=== PATIENT | female | born 1940 | race Caucasian/White ===

== ENCOUNTER → 2016-05-15 | Outpatient (CLI) | payer MEDICARE, BC | LOC: MW.CHIM 15:01 | PROVIDERS: ATTEND Internal Medicine | DX: I10 Essential (primary) hypertension (principal); E87.1 Hypo-osmolality and hyponatremia; J06.9 Acute upper respiratory infection, unspecified; F32.9 Major depressive disorder, single episode, unspecified; J44.9 Chronic obstructive pulmonary disease, unspecified | CPT/HCPCS: 36415; 80053; 85025; 99214 ==

== ENCOUNTER → 2016-06-17 | Outpatient (CLI) | payer MEDICARE, BC | LOC: MW.CHIM 08:00 | PROVIDERS: ATTEND Internal Medicine | DX: F32.9 Major depressive disorder, single episode, unspecified (principal); J44.9 Chronic obstructive pulmonary disease, unspecified; I10 Essential (primary) hypertension | CPT/HCPCS: 99214 ==

== ENCOUNTER 2019-12-18 13:48 | Inpatient (IN) | payer MEDICARE, BC, OTHER ==
[2019-12-18] MEDS ORDERED: Albuterol/Ipratropium 3.0-0.5 MG/3 ML Neb Soln ONE ×2 (14:08→15:37)
[2019-12-18] MEDS ORDERED: Albuterol 0.083% 2.5 MG/3 ML Neb Soln ONE ×2 (14:08→15:36)
[2019-12-18] MEDS ORDERED: methylPREDNISolone Sodium Succinate 40 MG/1 ML SDV IVPUSH ONE (14:20)
--- NOTE | 2019-12-18 14:29 | EDM.PDOC ---
ED HPI GENERAL MEDICAL PROBLEM - General Chief Complaint: Respiratory Problem Stated Complaint: DIFFUCLTY BREATHING Time Seen by Provider: 12/18/19 14:05 Source of Information: Reports: Patient, Family, Old Records History Limitations: Reports: No Limitations - History of Present Illness INITIAL COMMENTS - FREE TEXT/NARRATIVE: There is a very pleasant 79-year-old female with a past medical history of COPD and hypertension presenting with shortness of breath. She arrives to the emergency department with her daughter. Daughter states that she has been sick with a cough for about a week. She reports gradually worsening shortness of breath over the past day or so which prompted them to come to the ER. Patient states that she has been feeling unwell. She does live at a halfway complex but does not have any roommates and has no known sick contacts. No known COVID-19 contacts. She did use her albuterol inhaler x1 and her albuterol nebulizer x1 this morning prior to arrival without much relief. Here in the ER, her only complaint is shortness of breath. She denies any pain, particularly chest discomfort. Denies any fever or hemoptysis. No leg swelling, vomiting, diarrhea, or sick contacts. ROS: A 10-point review of systems was negative, except as noted in the HPI (or in the ROS section of this note). Past medical history: Reviewed, no additional pertinent history. Surgical history: Reviewed in system, no additional pertinent history. Social history: Reviewed in system, no additional pertinent history. Family history: Reviewed in system, no additional pertinent history. PHYSICAL EXAM Vital signs reviewed. Nursing notes reviewed. Constitutional: Awake, alert, non-distressed, very thin appearing woman. Head: Normocephalic, atraumatic. Eyes: EOMI, conjunctiva normal, no discharge, no scleral icterus. Ears, Nose, Throat: External ears and nose normal, moist oral mucosa. Cardiovascular: 2+ radial pulse, capillary refill less than 2 seconds. No lower extremity edema. Pulmonary: Faint expiratory wheezing throughout, accessory muscle use, speaking in 3-4 word sentences with mild intercostal muscle retraction. Abdomen/GI: Soft, nontender, nondistended, no guarding or rigidity, no masses. Musculoskeletal: No deformities. Integumentary: Appropriate color for ethnicity, warm, dry, no pallor or jaundice, no rash. Neurologic: Alert, answering questions appropriately, normal speech, no facial droop, moving all extremities well. Psychiatric: Appropriate mood and affect, normal thought process. - Related Data Allergies Allergy/AdvReac Type Severity Reaction Status Date / Time No Known Allergies Allergy Verified 12/18/19 14:09 Home Meds: Home Meds Metoprolol Tartrate 25 mg PO BID 02/18/15 [History] Sertraline [Zoloft] 50 mg PO BEDTIME 02/18/15 [History] Albuterol [Ventolin HFA] 1 puff INH BID 12/18/19 [History] Budesonide/Formoterol [Symbicort 160-4.5 MCG] 1 inh INH Q12HR 12/18/19 [History] Codeine Phosphate/Guaifenesin [Guaifen-Codeine 200-20 mg/10Ml] 5 ml PO BEDTIME 12/18/19 [History] Ipratropium/Albuterol Sulfate [Iprat-Albut 0.5-3(2.5) MG/3 ML] 3 ml IH 12/18/19 [History] amLODIPine [Norvasc] 5 mg PO DAILY 12/18/19 [History] Past Medical History Cardiovascular History: Reports: Hypertension Respiratory History: Reports: COPD Other Respiratory History: emphysema [employer] History: Reports: Psychiatric History: Reports: Anxiety, Depression - Infectious Disease History Infectious Disease History: Reports: Chicken Pox, Shingles - Past Surgical History Musculoskeletal Surgical History: Reports: Hip Replacement, Other (See Below) Social & Family History - Family History Family Medical History: Noncontributory Cardiac: Reports: Hypertension Respiratory: Reports: COPD OBGYN: Reports: Endocrine/Metabolic: Reports: Diabetes, type II - Tobacco Use Second Hand Smoke Exposure: No - Recreational Drug Use Recreational Drug Use: No ED ROS GENERAL - Review of Systems Review Of Systems: See Below ED EXAM, GENERAL - Physical Exam Exam: See Below #1 Interpretation EKG Interpretation Comments: 12-Lead ECG Interpretation Acquired: 1:57 PM Rhythm: Sinus rhythm Rate: 93 bpm [place]: Right axis deviation Intervals: Normal Ectopy: None RV Strain: No obvious RV strain pattern. ST Segments/T-Waves: No notable changes Acute Ischemic Changes: None apparent Interpretation: No STEMI Course - Vital Signs Text/Narrative:: Patient hemodynamically stable, afebrile, well-appearing, looks nontoxic. Differential diagnosis includes but is not limited to: COPD exacerbation, asthma, pulmonary embolism, pulmonary edema, acute coronary syndrome, COVID-19, influenza, pneumothorax, pleural effusion, and many others. 2:29 PM: Blood work drawn. Giving an hour-long nebulizer treatment, ordered Solu-Medrol IV. Reviewed chest x-ray, showing no obvious infiltrates. Twelve- lead EKG looks nonischemic. Awaiting blood work and will reevaluate. 2:54 PM: Patient finished initial round of nebulized medications. Still tachypneic and having difficulty breathing, we will give additional nebulizer treatments. I am planning to admit her to the hospital at this point. Awaiting troponin, BNP, influenza and Covid test. I spoke with the hospitalist Dr. Antonio who agrees to admit. 2:57 PM: Metabolic panel shows mild hyponatremia, mild creatinine elevation of 1.2. Glucose 159. Troponin negative. LFTs look normal. 3:59 PM: BNP mildly elevated to 31. Chest x-ray is clear. Resting comfortably, awaiting swabs. HR 160s after multiple nebulizer treatments, will give 1L LR. 5:45 PM: Awaiting admission. Patient has had approximately 8 nebulizer treatments throughout the ED course of treatment. Heart rate is now 160-170s. She is still tachypneic. We are going to place her on BiPAP to see if that helps. She looks quite jittery and anxious and we are going to give a low-dose of p.o. lorazepam to see if that helps with her heart rate and to make her more comfortable. The hospitalist did evaluate the patient in the emergency department and she states that she would not want to be intubated. 7:09 PM: Resting comfortably on BiPAP. Still awaiting admission to the ICU. Signed out to Dr. Oneill awaiting transfer to ICU. Last Recorded V/S: Last Vital Signs Temp 35.8 C L 12/18/19 14:07 Pulse 157 H 12/18/19 17:13 Resp 28 H 12/18/19 14:07 BP 114/63 12/18/19 17:13 Pulse Ox 96 12/18/19 17:13 - Orders/Labs/Meds Orders: Active Orders 24 hr Category Date Time Status Cardiac Monitoring [RC] . DIRECTED Care 12/18/19 14:05 Active Pulse Oximetry [RC] ASDIRECTED Care 12/18/19 14:05 Active CULTURE BLOOD [BC] Stat Lab 12/18/19 13:59 Received CULTURE BLOOD [BC] Stat Lab 12/18/19 14:28 Received Sodium Chloride 0.9% [Saline Flush] Med 12/18/19 14:05 Active 10 ml FLUSH ASDIRECTED PRN Sodium Chloride 0.9% [Saline Flush] Med 12/18/19 14:05 Active 2.5 ml FLUSH ASDIRECTED PRN Blood Culture x2 Reflex Set [OM.PC] Stat Oth 12/18/19 14:06 Ordered Saline Lock Insert [OM.PC] Stat Oth 12/18/19 14:05 Ordered Medication Orders Acetaminophen (Tylenol) 650 mg PO Q4H PRN PRN Reason: Pain (Mild 1-3)/fever Albuterol/Ipratropium (Duoneb 3.0-0.5 Mg/3 Ml) 3 ml NEB Q4HRRT [facility] Last Admin: 12/18/19 18:03 Dose: Not Given Documented by: CATHERINE Doxycycline Hyclate (Vibramycin) 100 mg PO Q12HR [facility] Heparin Sodium (Porcine) (Heparin Sodium) 5,000 units SUBCUT Q8H [facility] Last Admin: 12/18/19 18:04 Dose: 5,000 units Documented by: CATHERINE Methylprednisolone Sodium Succinate (Solu-Medrol) 40 mg IVPUSH Q12H [place] Pantoprazole Sodium (Protonix) 40 mg PO DAILY [facility] Last Admin: 12/18/19 18:03 Dose: 40 mg Documented by: CATHERINE Sodium Chloride (Saline Flush) 10 ml FLUSH ASDIRECTED PRN PRN Reason: Keep Vein Open Last Admin: 12/18/19 14:32 Dose: 10 ml Documented by: [id number] Sodium Chloride (Saline Flush) 2.5 ml FLUSH ASDIRECTED PRN PRN Reason: Keep Vein Open Last Admin: 12/18/19 14:32 Dose: 2.5 ml Documented by: [id number] Labs: Laboratory Tests 12/18/19 12/18/19 12/18/19 Range/Units 13:59 13:59 13:59 WBC 10.59 (4.0-11.0) K/uL RBC 4.88 (4.30-5.90) M/uL Hgb 14.5 (12.0-16.0) g/dL Hct 44.1 (36.0-46.0) % MCV 90.4 (80.0-98.0) fL MCH 29.7 (27.0-32.0) pg MCHC 32.9 (31.0-37.0) g/dL RDW Std Deviation 46.0 (28.0-62.0) fl RDW Coeff of Kiet 14 (11.0-15.0) % Plt Count 307 (150-400) K/uL MPV 9.80 (7.40-12.00) fL Neut % (Auto) 79.8 (48.0-80.0) % Lymph % (Auto) 11.4 L (16.0-40.0) % [place] % (Auto) 4.6 (0.0-15.0) % Eos % (Auto) 3.6 (0.0-7.0) % Baso % (Auto) 0.6 (0.0-1.5) % Neut # (Auto) 8.5 H (1.4-5.7) K/uL Lymph # (Auto) 1.2 (0.6-2.4) K/uL [place] # (Auto) 0.5 (0.0-0.8) K/uL Eos # (Auto) 0.4 (0.0-0.7) K/uL Baso # (Auto) 0.1 (0.0-0.1) K/uL Nucleated RBC % 0.0 /100WBC Nucleated RBCs # 0 K/uL VBG pH 7.28 L (7.31-7.41) VBG pCO2 52 H (35-45) mmHG VBG pO2 35 (30-40) mmHG VBG HCO3 25 (22-30) mEq/L VBG Total CO2 23 L (41-51) mmol/L VBG Base Excess -2.7 (-3.0-3.0) Sodium 129 L (136-145) mmol/L Potassium 4.4 (3.5-5.1) mmol/L Chloride 93 L (98-107) mmol/L Carbon Dioxide 25.9 (21.0-32.0) mmol/L BUN 16 (7.0-18.0) mg/dL Creatinine 1.2 H (0.6-1.0) mg/dL Est Cr Clr Drug Dosing 27.55 mL/min Estimated GFR (MDRD) 43.6 ml/min Glucose 159 H (74-106) mg/dL Calcium 9.0 (8.5-10.1) mg/dL Total Bilirubin 0.7 (0.2-1.0) mg/dL AST 21 (15-37) IU/L ALT 24 (14-63) IU/L Alkaline Phosphatase 79 (46-116) U/L Troponin I < 0.050 (0.000-0.056) ng/mL B-Natriuretic Peptide (<100) PG/ML Total Protein 7.7 (6.4-8.2) g/dL Albumin 4.5 (3.4-5.0) g/dL Globulin 3.2 (2.6-4.0) g/dL Albumin/Globulin Ratio 1.4 (0.9-1.6) SARS-CoV-2 RNA ([facility]) (NEGATIVE) 12/18/19 12/18/19 Range/Units 13:59 14:40 WBC (4.0-11.0) K/uL RBC (4.30-5.90) M/uL Hgb (12.0-16.0) g/dL Hct (36.0-46.0) % MCV (80.0-98.0) fL MCH (27.0-32.0) pg MCHC (31.0-37.0) g/dL RDW Std Deviation (28.0-62.0) fl RDW Coeff of Kiet (11.0-15.0) % Plt Count (150-400) K/uL MPV (7.40-12.00) fL Neut % (Auto) (48.0-80.0) % Lymph % (Auto) (16.0-40.0) % [place] % (Auto) (0.0-15.0) % Eos % (Auto) (0.0-7.0) % Baso % (Auto) (0.0-1.5) % Neut # (Auto) (1.4-5.7) K/uL Lymph # (Auto) (0.6-2.4) K/uL [place] # (Auto) (0.0-0.8) K/uL Eos # (Auto) (0.0-0.7) K/uL Baso # (Auto) (0.0-0.1) K/uL Nucleated RBC % /100WBC Nucleated RBCs # K/uL VBG pH (7.31-7.41) VBG pCO2 (35-45) mmHG VBG pO2 (30-40) mmHG VBG HCO3 (22-30) mEq/L VBG Total CO2 (41-51) mmol/L VBG Base Excess (-3.0-3.0) Sodium (136-145) mmol/L Potassium (3.5-5.1) mmol/L Chloride (98-107) mmol/L Carbon Dioxide (21.0-32.0) mmol/L BUN (7.0-18.0) mg/dL Creatinine (0.6-1.0) mg/dL Est Cr Clr Drug Dosing mL/min Estimated GFR (MDRD) ml/min Glucose (74-106) mg/dL Calcium (8.5-10.1) mg/dL Total Bilirubin (0.2-1.0) mg/dL AST (15-37) IU/L ALT (14-63) IU/L Alkaline Phosphatase (46-116) U/L Troponin I (0.000-0.056) ng/mL B-Natriuretic Peptide 231 H (<100) PG/ML Total Protein (6.4-8.2) g/dL Albumin (3.4-5.0) g/dL Globulin (2.6-4.0) g/dL Albumin/Globulin Ratio (0.9-1.6) SARS-CoV-2 RNA ([facility]) NEGATIVE (NEGATIVE) Meds: Medications Generic Name Dose Route Start Last Admin Trade Name Freq PRN Reason Stop Dose Admin Acetaminophen 650 mg 12/18/19 17:02 Tylenol PO Q4H PRN Pain (Mild 1-3)/fever Albuterol/Ipratropium 3 ml 12/18/19 18:00 12/18/19 18:03 Duoneb 3.0-0.5 Mg/3 Ml NEB Not Given Q4HRRT [facility] Doxycycline Hyclate 100 mg 12/18/19 21:00 Vibramycin PO Q12HR [facility] Heparin Sodium (Porcine) 5,000 units 12/18/19 18:00 12/18/19 18:04 Heparin Sodium SUBCUT 5,000 units Q8H [facility] Administration Methylprednisolone Sodium Succinate 40 mg 12/19/19 09:00 Solu-Medrol IVPUSH Q12H [facility] Pantoprazole Sodium 40 mg 12/18/19 17:15 12/18/19 18:03 Protonix PO 40 mg DAILY [facility] Administration Sodium Chloride 10 ml 12/18/19 14:05 12/18/19 14:32 Saline Flush FLUSH 10 ml ASDIRECTED PRN Administration Keep Vein Open Sodium Chloride 2.5 ml 12/18/19 14:05 12/18/19 14:32 Saline Flush FLUSH 2.5 ml ASDIRECTED PRN Administration Keep Vein Open Discontinued Medications Generic Name Dose Route Start Last Admin Trade Name Freq PRN Reason Stop Dose Admin Albuterol Confirm 12/18/19 14:08 12/18/19 14:33 Proventil Neb Soln Administered 12/18/19 14:09 5 mg Dose Administration 5 mg .ROUTE .STK-MED ONE Albuterol 10 mg 12/18/19 14:55 12/18/19 15:46 Proventil Neb Soln NEB 12/18/19 14:56 Not Given ONETIME ONE Albuterol Confirm 12/18/19 15:36 12/18/19 15:46 Proventil Neb Soln Administered 12/18/19 15:37 Not Given Dose 5 mg .ROUTE .STK-MED ONE Albuterol 5 mg 12/18/19 15:43 12/18/19 15:45 Proventil Neb Soln NEB 12/18/19 15:44 5 mg ONETIME ONE Administration Albuterol 5 mg 12/18/19 16:00 Proventil NEB QIDRT [place] Albuterol 5 mg 12/18/19 15:48 12/18/19 15:49 Proventil NEB 12/18/19 15:49 5 mg NOW STA Administration Albuterol/Ipratropium Confirm 12/18/19 14:08 12/18/19 14:33 Duoneb 3.0-0.5 Mg/3 Ml Administered 12/18/19 14:09 6 ml Dose Administration 6 ml .ROUTE .STK-MED ONE Albuterol/Ipratropium 9 ml 12/18/19 14:55 12/18/19 16:19 Duoneb 3.0-0.5 Mg/3 Ml NEB 12/18/19 14:56 Not Given ONETIME ONE Albuterol/Ipratropium Confirm 12/18/19 15:37 12/18/19 15:45 Duoneb 3.0-0.5 Mg/3 Ml Administered 12/18/19 15:38 Not Given Dose 6 ml .ROUTE .STK-MED ONE Albuterol/Ipratropium 6 ml 12/18/19 15:42 12/18/19 15:45 Duoneb 3.0-0.5 Mg/3 Ml NEB 12/18/19 15:43 6 ml ONETIME ONE Administration Amlodipine Besylate 10 mg 12/18/19 14:53 12/18/19 15:44 Norvasc PO 12/18/19 14:54 Not Given ONETIME ONE Lactated Ringer's 1,000 mls @ 999 mls/hr 12/18/19 16:00 12/18/19 16:36 Ringers, Lactated IV 12/18/19 17:00 999 mls/hr .BOLUS ONE Administration Lorazepam 0.5 mg 12/18/19 17:55 12/18/19 18:03 Ativan PO 12/18/19 17:56 0.5 mg ONETIME ONE Administration Methylprednisolone Sodium Succinate 40 mg 12/18/19 14:20 12/18/19 14:32 Solu-Medrol IVPUSH 12/18/19 14:21 40 mg ONETIME ONE Administration Departure - Departure Time of Disposition: 14:30 Disposition: Admitted As Inpatient 68 Clinical Impression: COPD exacerbation - Discharge Information Critical Care Note - Critical Care Note Total Time (mins): 45 Comments: Critical care time is exclusive of billable procedures and the time to perform these procedures. Critical care time was used to prevent vital system organ failure and deterioration. Critical care time includes bedside management and high-complexity decision making requiring my highest level of mental preparedness and attention. This includes reviewing the patient's chart and prior medical records, ordering and reviewing interpreting laboratory studies and imaging results, interpretation of vital signs and EKG, pulse oximetry, and discussion with the admitting team or accepting facility, discussions with EMS and nursing staff, and discussions with any family members if available. Acute hypoxic respiratory failure requiring noninvasive positive pressure ventilation and admission to intensive care unit. Sepsis Event Note (ED) - Evaluation Sepsis Screening Result: No Definite Risk - Focused Exam Vital Signs: Vital Signs Temp Pulse Resp BP Pulse Ox 12/18/19 14:07 35.8 C L 92 28 H 212/97 H 80 L - My Orders Last 24 Hours: My Active Orders 12/18/19 13:59 CULTURE BLOOD [BC] Stat 12/18/19 14:05 Cardiac Monitoring [RC] . DIRECTED Pulse Oximetry [RC] ASDIRECTED Sodium Chloride 0.9% [Saline Flush] 10 ml FLUSH ASDIRECTED PRN Sodium Chloride 0.9% [Saline Flush] 2.5 ml FLUSH ASDIRECTED PRN Saline Lock Insert [OM.PC] Stat 12/18/19 14:06 Blood Culture x2 Reflex Set [OM.PC] Stat 12/18/19 14:28 CULTURE BLOOD [BC] Stat - Assessment/Plan Last 24 Hours: My Active Orders 12/18/19 13:59 CULTURE BLOOD [BC] Stat 12/18/19 14:05 Cardiac Monitoring [RC] . DIRECTED Pulse Oximetry [RC] ASDIRECTED Sodium Chloride 0.9% [Saline Flush] 10 ml FLUSH ASDIRECTED PRN Sodium Chloride 0.9% [Saline Flush] 2.5 ml FLUSH ASDIRECTED PRN Saline Lock Insert [OM.PC] Stat 12/18/19 14:06 Blood Culture x2 Reflex Set [OM.PC] Stat 12/18/19 14:28 CULTURE BLOOD [BC] Stat
[2019-12-18] MEDS: Sodium Chloride 0.9% 10 ML Syringe FLUSH PRN ×2 (14:32→20:48)
[2019-12-18] MEDS: Sodium Chloride 0.9% 2.5 ML Syringe FLUSH PRN (14:32)
--- NOTE | 2019-12-18 14:34 | CR ---
INDICATION: Shortness of breath TECHNIQUE: Chest 1 view. COMPARISON: Chest x-ray 06/23/2018 FINDINGS: The lungs are hyperexpanded, similar to prior exam. The heart is normal in size. The pulmonary vasculature is within normal limits. There is atherosclerotic calcification of the aortic arch. Evaluation of the lung apices are limited due to patient positioning. The bones are unremarkable. IMPRESSION: Stable emphysematous changes. No acute process. Dictated by Gabriela Baptiste MD @ Dec 18 2019 2:31PM Signed by Dr. Gabriela Baptiste @ Dec 18 2019 2:33PM
[2019-12-18 14:39] LABS: BLOOD UREA NITROGEN,BUN 16 mg/dL (7.0-18.0); CARBON DIOXIDE,CO2 25.9 mmol/L (21.0-32.0); CHLORIDE,CL 93 mmol/L (98-107); GLUCOSE RANDOM 159 mg/dL (74-106); POTASSIUM,K 4.4 mmol/L (3.5-5.1); SODIUM,NA 129 mmol/L (136-145)
[2019-12-18] MEDS ORDERED: amLODIPine 5 MG Tab PO ONE (14:53)
[2019-12-18] MEDS ORDERED: Albuterol 0.5% 5 MG/ML Neb Soln 20 ML Bottle NEB ONE (14:55)
[2019-12-18] MEDS ORDERED: Albuterol/Ipratropium 3.0-0.5 MG/3 ML Neb Soln NEB ONE ×2 (14:55→15:42)
[2019-12-18] MEDS ORDERED: Albuterol 0.083% 2.5 MG/3 ML Neb Soln NEB ONE (15:43)
[2019-12-18] MEDS ORDERED: Albuterol 0.5% 2.5 MG/0.5 ML Neb Soln NEB STA (15:48)
[2019-12-18] MEDS ORDERED: Albuterol 0.5% 2.5 MG/0.5 ML Neb Soln NEB SCH (16:00)
[2019-12-18] MEDS ORDERED: Lactated Ringers 1,000 ML IV ONE (16:00)
[2019-12-18] MEDS ORDERED: Acetaminophen 325 MG Tab PO PRN (17:02)
--- NOTE | 2019-12-18 17:07 | PCM.HP.2 ---
H&P History of Present Illness - General Date of Service: 12/18/19 Admit Problem/Dx: Admission Diagnosis/Problem Admission Diagnosis/Problem COPD, Moderate chronic obstructive pulmonary disease - History of Present Illness Initial Comments - Free Text/Narative: 79-year-old female presents complaining of worsening cough and shortness of breath for the past 1 week. She has a PMH of COPD, HTN and CVA. Daughter at bedside reports that she does not use home oxygen, however, she thinks that she would probably need to be. Her cough is productive of white colored sputum. She has been using her home inhalers and nebulizer treatment but when this did not help she was brought in to the ER. Patient denies having any fevers, chills, chest pain, nausea, vomiting, abdominal pain, diarrhea, blood in stool, blood in urine, numbness or tingling in extremities. In the ER, VBG pH 7.28, CBC unremarkable and creatinine 1.2. Troponin was negative. CXR showed emphysematous changes. COVID19 and influenza tests were negative. Patient requiring 4 L of supplemental O2. She was given multiple D uoNeb treatments, IV solumedrol 40 mg and 1 L IV LR bolus. She was admitted for further evaluation and treatment. - Related Data Allergies/Adverse Reactions: Allergies Allergy/AdvReac Type Severity Reaction Status Date / Time No Known Allergies Allergy Verified 12/18/19 14:09 Home Medications: Home Meds Metoprolol Tartrate 25 mg PO BID 02/18/15 [History] Sertraline [Zoloft] 50 mg PO BEDTIME 02/18/15 [History] Albuterol [Ventolin HFA] 1 puff INH BID 12/18/19 [History] Budesonide/Formoterol [Symbicort 160-4.5 MCG] 1 inh INH Q12HR 12/18/19 [History] Codeine Phosphate/Guaifenesin [Guaifen-Codeine 200-20 mg/10Ml] 5 ml PO BEDTIME 12/18/19 [History] Ipratropium/Albuterol Sulfate [Iprat-Albut 0.5-3(2.5) MG/3 ML] 3 ml IH 12/18/19 [History] amLODIPine [Norvasc] 5 mg PO DAILY 12/18/19 [History] Past Medical History Cardiovascular History: Reports: Hypertension Respiratory History: Reports: COPD Other Respiratory History: emphysema 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: Psychiatric History: Reports: Anxiety, Depression - Infectious Disease History Infectious Disease History: Reports: Chicken Pox, Shingles - Past Surgical History Musculoskeletal Surgical History: Reports: Hip Replacement, Other (See Below) Social & Family History - Family History Family Medical History: Noncontributory Cardiac: Reports: Hypertension Respiratory: Reports: COPD OBGYN: Reports: Endocrine/Metabolic: Reports: Diabetes, type II - Tobacco Use Second Hand Smoke Exposure: No - Recreational Drug Use Recreational Drug Use: No H&P Review of Systems - Review of Systems: Review Of Systems: Comprehensive ROS is negative, except as noted in HPI. Exam - Exam Exam: See Below - Vital Signs Vital Signs: Last Vital Signs Temp 35.8 C L 12/18/19 14:07 Pulse 92 12/18/19 14:07 Resp 28 H 12/18/19 14:07 BP 129/71 12/18/19 15:44 Pulse Ox 80 L 12/18/19 14:07 Weight: 44.452 kg - Exam General: Alert, Oriented, Cooperative, Other (NAD) HEENT: Conjunctiva Clear, EOMI, Hearing Intact, Pupils Equal, Pupils Reactive Neck: Supple, Trachea Midline Lungs: Normal Respiratory Effort, Other (quiet breath sounds b/l) Cardiovascular: Regular Rhythm, Tachycardia GI/Abdominal Exam: Normal Bowel Sounds, Soft, Non-Tender, No Distention Extremities: Normal Inspection, No Pedal Edema Skin: Warm, Dry, Intact Neurological: Cranial Nerves Intact, Strength Equal Bilateral, Normal Speech, Normal Tone Neuro Extensive - Mental Status: Alert, Oriented x3, Normal Mood/Affect Psychiatric: Alert, Normal Affect, Normal Mood - Patient Data Lab Results Last 24 hrs: Laboratory Results - last 24 hr 12/18/19 12/18/19 12/18/19 Range/Units 13:59 13:59 13:59 WBC 10.59 (4.0-11.0) K/uL RBC 4.88 (4.30-5.90) M/uL Hgb 14.5 (12.0-16.0) g/dL Hct 44.1 (36.0-46.0) % MCV 90.4 (80.0-98.0) fL MCH 29.7 (27.0-32.0) pg MCHC 32.9 (31.0-37.0) g/dL RDW Std Deviation 46.0 (28.0-62.0) fl RDW Coeff of Kiet 14 (11.0-15.0) % Plt Count 307 (150-400) K/uL MPV 9.80 (7.40-12.00) fL Neut % (Auto) 79.8 (48.0-80.0) % Lymph % (Auto) 11.4 L (16.0-40.0) % Forest % (Auto) 4.6 (0.0-15.0) % Eos % (Auto) 3.6 (0.0-7.0) % Baso % (Auto) 0.6 (0.0-1.5) % Neut # (Auto) 8.5 H (1.4-5.7) K/uL Lymph # (Auto) 1.2 (0.6-2.4) K/uL Forest # (Auto) 0.5 (0.0-0.8) K/uL Eos # (Auto) 0.4 (0.0-0.7) K/uL Baso # (Auto) 0.1 (0.0-0.1) K/uL Nucleated RBC % 0.0 /100WBC Nucleated RBCs # 0 K/uL VBG pH 7.28 L (7.31-7.41) VBG pCO2 52 H (35-45) mmHG VBG pO2 35 (30-40) mmHG VBG HCO3 25 (22-30) mEq/L VBG Total CO2 23 L (41-51) mmol/L VBG Base Excess -2.7 (-3.0-3.0) Sodium 129 L (136-145) mmol/L Potassium 4.4 (3.5-5.1) mmol/L Chloride 93 L (98-107) mmol/L Carbon Dioxide 25.9 (21.0-32.0) mmol/L BUN 16 (7.0-18.0) mg/dL Creatinine 1.2 H (0.6-1.0) mg/dL Est Cr Clr Drug Dosing 27.55 mL/min Estimated GFR (MDRD) 43.6 ml/min Glucose 159 H (74-106) mg/dL Calcium 9.0 (8.5-10.1) mg/dL Total Bilirubin 0.7 (0.2-1.0) mg/dL AST 21 (15-37) IU/L ALT 24 (14-63) IU/L Alkaline Phosphatase 79 (46-116) U/L Troponin I < 0.050 (0.000-0.056) ng/mL B-Natriuretic Peptide (<100) PG/ML Total Protein 7.7 (6.4-8.2) g/dL Albumin 4.5 (3.4-5.0) g/dL Globulin 3.2 (2.6-4.0) g/dL Albumin/Globulin Ratio 1.4 (0.9-1.6) SARS-CoV-2 RNA (CARLEE) (NEGATIVE) 12/18/19 12/18/19 Range/Units 13:59 14:40 WBC (4.0-11.0) K/uL RBC (4.30-5.90) M/uL Hgb (12.0-16.0) g/dL Hct (36.0-46.0) % MCV (80.0-98.0) fL MCH (27.0-32.0) pg MCHC (31.0-37.0) g/dL RDW Std Deviation (28.0-62.0) fl RDW Coeff of Kiet (11.0-15.0) % Plt Count (150-400) K/uL MPV (7.40-12.00) fL Neut % (Auto) (48.0-80.0) % Lymph % (Auto) (16.0-40.0) % Forest % (Auto) (0.0-15.0) % Eos % (Auto) (0.0-7.0) % Baso % (Auto) (0.0-1.5) % Neut # (Auto) (1.4-5.7) K/uL Lymph # (Auto) (0.6-2.4) K/uL Forest # (Auto) (0.0-0.8) K/uL Eos # (Auto) (0.0-0.7) K/uL Baso # (Auto) (0.0-0.1) K/uL Nucleated RBC % /100WBC Nucleated RBCs # K/uL VBG pH (7.31-7.41) VBG pCO2 (35-45) mmHG VBG pO2 (30-40) mmHG VBG HCO3 (22-30) mEq/L VBG Total CO2 (41-51) mmol/L VBG Base Excess (-3.0-3.0) Sodium (136-145) mmol/L Potassium (3.5-5.1) mmol/L Chloride (98-107) mmol/L Carbon Dioxide (21.0-32.0) mmol/L BUN (7.0-18.0) mg/dL Creatinine (0.6-1.0) mg/dL Est Cr Clr Drug Dosing mL/min Estimated GFR (MDRD) ml/min Glucose (74-106) mg/dL Calcium (8.5-10.1) mg/dL Total Bilirubin (0.2-1.0) mg/dL AST (15-37) IU/L ALT (14-63) IU/L Alkaline Phosphatase (46-116) U/L Troponin I (0.000-0.056) ng/mL B-Natriuretic Peptide 231 H (<100) PG/ML Total Protein (6.4-8.2) g/dL Albumin (3.4-5.0) g/dL Globulin (2.6-4.0) g/dL Albumin/Globulin Ratio (0.9-1.6) SARS-CoV-2 RNA (CARLEE) NEGATIVE (NEGATIVE) Result Diagrams: 12/18/19 13:59 12/18/19 13:59 Wilner Results Last 24 hrs: Microbiology 12/18/19 14:40 Influenza Type A Antigen Screen - Final Nasopharyngeal Swab NEGATIVE INFLUENZA A VIRUS AG REFERENCE RANGE: NEGATIVE Influenza Type B Antigen Screen - Final NEGATIVE INFLUENZA B VIRUS AG REFERENCE RANGE: NEGATIVE Sepsis Event Note - Evaluation Sepsis Screening Result: No Definite Risk - Focused Exam Vital Signs: Vital Signs Temp Pulse Resp BP BP Pulse Ox 12/18/19 15:44 129/71 12/18/19 14:07 35.8 C L 92 28 H 212/97 H 80 L - Problem List (1) COPD exacerbation SNOMED Code(s): 090189216 ICD Code: J44.1 - CHRONIC OBSTRUCTIVE PULMONARY DISEASE W (ACUTE) EXA CERBATION Status: Acute Current Visit: Yes (2) Hyponatremia SNOMED Code(s): 16391988 ICD Code: E87.1 - HYPO-OSMOLALITY AND HYPONATREMIA Status: Acute Current Visit: Yes Problem List Initiated/Reviewed/Updated: Yes Orders Last 24hrs: Active Orders 24 hr Category Date Time Status Admission Status [Patient Status] [ADT] Stat ADT 12/18/19 14:53 Active Cardiac Monitoring [RC] . DIRECTED Care 12/18/19 14:05 Active EKG Documentation Completion [RC] STAT Care 12/18/19 14:05 Active Oxygen Therapy [RC] PRN Care 12/18/19 17:02 Ordered Pulse Oximetry [RC] ASDIRECTED Care 12/18/19 14:05 Active RT Aerosol Therapy [RC] ASDIRECTED Care 12/18/19 14:55 Active RT Aerosol Therapy [RC] ASDIRECTED Care 12/18/19 15:43 Active RT Aerosol Therapy [RC] ASDIRECTED Care 12/18/19 15:44 Active RT Aerosol Therapy [RC] ASDIRECTED Care 12/18/19 15:48 Active RT Aerosol Therapy [RC] ASDIRECTED Care 12/18/19 17:04 Ordered RT Incentive Spirometry [RC] ASDIRECTED Care 12/18/19 17:04 Ordered Up With Assistance [RC] ASDIRECTED Care 12/18/19 17:02 Ordered VTE/DVT Education [RC] PER UNIT ROUTINE Care 12/18/19 17:02 Ordered Vital Signs [RC] Q4H Care 12/18/19 17:02 Ordered Regular Diet [DIET] Diet 12/18/19 Lunch Ordered CBC WITH AUTO DIFF [HEME] AM Lab 12/19/19 05:11 Ordered COMPREHENSIVE METABOLIC PN,CMP [CHEM] AM Lab 12/19/19 05:11 Ordered CULTURE BLOOD [BC] Stat Lab 12/18/19 13:59 Received CULTURE BLOOD [BC] Stat Lab 12/18/19 14:28 Received Acetaminophen [TylenoL] Med 12/18/19 17:02 Ordered 650 mg PO Q4H PRN Albuterol/Ipratropium [DuoNeb 3.0-0.5 MG/3 ML] Med 12/18/19 18:00 Ordered 3 ml NEB Q4HRRT Doxycycline [Vibramycin] Med 12/18/19 21:00 Ordered 100 mg PO Q12HR Heparin Sodium Med 12/18/19 17:15 Ordered 5,000 units SUBCUT Q8H Pantoprazole [ProTONIX] Med 12/18/19 17:15 Ordered 40 mg PO DAILY Sodium Chloride 0.9% [Saline Flush] Med 12/18/19 14:05 Active 10 ml FLUSH ASDIRECTED PRN Sodium Chloride 0.9% [Saline Flush] Med 12/18/19 14:05 Active 2.5 ml FLUSH ASDIRECTED PRN methylPREDNISolone Sod Succ [Solu-MEDROL] Med 12/19/19 09:00 Ordered 40 mg IVPUSH Q12H Blood Culture x2 Reflex Set [OM.PC] Stat Ot 12/18/19 14:06 Ordered RT Flutter Valve Therapy [RT Acapella] [RESPCARE] Oth 12/18/19 17:04 Ordered Routine Saline Lock Insert [OM.PC] Stat Oth 12/18/19 14:05 Ordered Resuscitation Status Routine Resus Stat 12/18/19 17:02 Ordered Medication Orders Acetaminophen (Tylenol) 650 mg PO Q4H PRN PRN Reason: Pain (Mild 1-3)/fever Albuterol/Ipratropium (Duoneb 3.0-0.5 Mg/3 Ml) 3 ml NEB Q4HRRT [place] Doxycycline Hyclate (Vibramycin) 100 mg PO Q12HR [place] Heparin Sodium (Porcine) (Heparin Sodium) 5,000 units SUBCUT Q8H [place] Methylprednisolone Sodium Succinate (Solu-Medrol) 40 mg IVPUSH Q12H [place] Pantoprazole Sodium (Protonix) 40 mg PO DAILY [place] Sodium Chloride (Saline Flush) 10 ml FLUSH ASDIRECTED PRN PRN Reason: Keep Vein Open Last Admin: 12/18/19 14:32 Dose: 10 ml Documented by: [id number] Sodium Chloride (Saline Flush) 2.5 ml FLUSH ASDIRECTED PRN PRN Reason: Keep Vein Open Last Admin: 12/18/19 14:32 Dose: 2.5 ml Documented by: [id number] Assessment/Plan Comment:: Assessment and Plan: 1. Acute hypoxic respiratory failure secondary to COPD exacerbation: - Admit to ICU. Will continue on BiPAP. DuoNebs q4 [place], IV solumedrol 40 mg BID and doxycycline. - CXR showed emphysematous changes. COVID19 and influenza tests were negative. 2. Hyponatremia, mild: - Patient received IV 1 L LR bolus in ER. Will monitor with AM labs. 3. NOEMÍ: - Patient received IV bolus in ER. Will recheck CMP with AM labs. 4. DVT prophylaxis: - Heparin 5000 units subcut q8h. 5. Past medical history of HTN and CVA: - Will continue home medications.
[2019-12-18] MEDS ORDERED: LORazepam 0.5 MG Tab PO ONE (17:55)
[2019-12-18] MEDS ORDERED: Albuterol/Ipratropium 3.0-0.5 MG/3 ML Neb Soln NEB SCH (18:00)
[2019-12-18] MEDS: Pantoprazole 40 MG Tab.CR PO SCH (18:03)
[2019-12-18] MEDS: Heparin Sodium 5,000 Units/ML Vial SUBCUT SCH (18:04)
--- NOTE | 2019-12-18 19:54 | PN ---
TH[facility] Physician - Brief Progress [id number]/24/2020 19:46[facility] Patricai de jesus, [place] - MWN (MANPREET) - MWN ICUANGIE ACOSTA, COVID+Date of Service 12/18/2019 19:46HPI/E vents of Note The patient is a 79-year-old male who is admitted to the ICU with COVID-19 pneumonia an d hypoxemic respiratory failure.I was called by about the patient. The patient is currentl y on 8 L oxygen by nasal cannula is receiving Decadron Decadron and remdesivir, as well as a communit y-acquired pneumonia coverage with ceftriaxone and azithromycin. Dr. Galloway is ordering for him conv alescent plasma.In addition he is intermittently in atrial fibrillation, and received Cardizem bolus, we discussed that this probably will need to be followed by Magdy patient could not be evaluated o miguel the camera because he is in the room yet, before transfer to ICU from floor he was sent for CT an giogram.Please excuse any mistakes in syntax and contextual errors that this report may contain, as it is created by diesel motor mechanic softwareInterventions Intermediate-Communication with other healthcare providers and/or family
[2019-12-18] MEDS: Sertraline 50 MG Tab PO SCH (21:35)
[2019-12-18] MEDS: Doxycycline 100 MG Cap PO SCH (21:35)
[2019-12-18] MEDS: Metoprolol Tartrate 25 MG Tab PO SCH (21:35)
[2019-12-18] MEDS ORDERED: Diltiazem 25 MG/5 ML SDV IVPUSH PRN (22:00)
[2019-12-18] MEDS: Albuterol/Ipratropium 3.0-0.5 MG/3 ML Neb Soln NEB PRN (22:20)
[2019-12-18] MEDS: Budesonide/Formoterol 160-4.5 MCG/Puff 6 GM Inhaler INH SCH (22:45)
[2019-12-19] MEDS: Sodium Chloride 0.9% 10 ML Syringe FLUSH PRN ×2 (00:05→04:08)
[2019-12-19] MEDS: Heparin Sodium 5,000 Units/ML Vial SUBCUT SCH ×3 (01:43→17:53)
[2019-12-19] MEDS: Albuterol/Ipratropium 3.0-0.5 MG/3 ML Neb Soln NEB PRN (04:20)
[2019-12-19] MEDS: Doxycycline 100 MG Cap PO SCH ×2 (08:22→20:11)
[2019-12-19] MEDS: Pantoprazole 40 MG Tab.CR PO SCH (08:22)
[2019-12-19] MEDS: amLODIPine 5 MG Tab PO SCH (08:22)
[2019-12-19] MEDS: Metoprolol Tartrate 25 MG Tab PO SCH ×2 (08:22→20:11)
[2019-12-19] MEDS: methylPREDNISolone Sodium Succinate 40 MG/1 ML SDV IVPUSH SCH ×2 (08:23→20:10)
[2019-12-19] MEDS: Budesonide/Formoterol 160-4.5 MCG/Puff 6 GM Inhaler INH SCH ×2 (09:55→22:02)
[2019-12-19] MEDS ORDERED: Calcium Carbonate 500 MG Tab.Chew PO ONE (11:30)
--- NOTE | 2019-12-19 11:36 | PCM.PN ---
- General Info Date of Service: 12/19/19 Subjective Update: 79 y/o F admitted for hypoxia, was on Bipap overnight with SVT. Improved status this morning, patient states she feels much better. In sinus rhythm eating her breakfast on 3L high flow O2. Functional Status: Reports: Tolerating Diet, Incentive Spirometry - Review of Systems General: Reports: No Symptoms HEENT: Reports: No Symptoms Pulmonary: Reports: Shortness of Breath, Cough. Denies: Pleuritic Chest Pain Cardiovascular: Reports: No Symptoms Gastrointestinal: Reports: No Symptoms Genitourinary: Reports: No Symptoms Musculoskeletal: Reports: No Symptoms Skin: Reports: No Symptoms Neurological: Reports: No Symptoms Psychiatric: Reports: No Symptoms - Patient Data Vitals - Most Recent: Last Vital Signs Temp 97.3 F 12/19/19 08:00 Pulse 80 12/19/19 08:22 Resp 18 12/19/19 08:00 BP 151/74 H 12/19/19 08:22 Pulse Ox 97 12/19/19 08:00 Weight - Most Recent: 89 lb 1.068 oz I&O - Last 24 Hours: Intake & Output 12/18/19 12/19/19 12/19/19 22:59 06:59 14:59 Intake Total 420 Output Total 350 Balance 70 Lab Results Last 24 Hours: Laboratory Results - last 24 hr 12/18/19 12/18/19 12/18/19 Range/Units 13:59 13:59 13:59 WBC 10.59 (4.0-11.0) K/uL RBC 4.88 (4.30-5.90) M/uL Hgb 14.5 (12.0-16.0) g/dL Hct 44.1 (36.0-46.0) % MCV 90.4 (80.0-98.0) fL MCH 29.7 (27.0-32.0) pg MCHC 32.9 (31.0-37.0) g/dL RDW Std Deviation 46.0 (28.0-62.0) fl RDW Coeff of Kiet 14 (11.0-15.0) % Plt Count 307 (150-400) K/uL MPV 9.80 (7.40-12.00) fL Neut % (Auto) 79.8 (48.0-80.0) % Lymph % (Auto) 11.4 L (16.0-40.0) % [place] % (Auto) 4.6 (0.0-15.0) % Eos % (Auto) 3.6 (0.0-7.0) % Baso % (Auto) 0.6 (0.0-1.5) % Neut # (Auto) 8.5 H (1.4-5.7) K/uL Lymph # (Auto) 1.2 (0.6-2.4) K/uL [place] # (Auto) 0.5 (0.0-0.8) K/uL Eos # (Auto) 0.4 (0.0-0.7) K/uL Baso # (Auto) 0.1 (0.0-0.1) K/uL Nucleated RBC % 0.0 /100WBC Nucleated RBCs # 0 K/uL VBG pH 7.28 L (7.31-7.41) VBG pCO2 52 H (35-45) mmHG VBG pO2 35 (30-40) mmHG VBG HCO3 25 (22-30) mEq/L VBG Total CO2 23 L (41-51) mmol/L VBG Base Excess -2.7 (-3.0-3.0) Lactate (0.20-2.00) mmol/L Sodium 129 L (136-145) mmol/L Potassium 4.4 (3.5-5.1) mmol/L Chloride 93 L (98-107) mmol/L Carbon Dioxide 25.9 (21.0-32.0) mmol/L BUN 16 (7.0-18.0) mg/dL Creatinine 1.2 H (0.6-1.0) mg/dL Est Cr Clr Drug Dosing 27.55 mL/min Estimated GFR (MDRD) 43.6 ml/min Glucose 159 H (74-106) mg/dL Calcium 9.0 (8.5-10.1) mg/dL Total Bilirubin 0.7 (0.2-1.0) mg/dL AST 21 (15-37) IU/L ALT 24 (14-63) IU/L Alkaline Phosphatase 79 (46-116) U/L Troponin I < 0.050 (0.000-0.056) ng/mL B-Natriuretic Peptide (<100) PG/ML Total Protein 7.7 (6.4-8.2) g/dL Albumin 4.5 (3.4-5.0) g/dL Globulin 3.2 (2.6-4.0) g/dL Albumin/Globulin Ratio 1.4 (0.9-1.6) SARS-CoV-2 RNA (CARLEE) (NEGATIVE) 12/18/19 12/18/19 12/19/19 Range/Units 13:59 14:40 05:20 WBC 7.58 (4.0-11.0) K/uL RBC 3.85 L (4.30-5.90) M/uL Hgb 11.3 L (12.0-16.0) g/dL Hct 34.6 L (36.0-46.0) % MCV 89.9 (80.0-98.0) fL MCH 29.4 (27.0-32.0) pg MCHC 32.7 (31.0-37.0) g/dL RDW Std Deviation 45.8 (28.0-62.0) fl RDW Coeff of Kiet 14 (11.0-15.0) % Plt Count 217 (150-400) K/uL MPV 9.90 (7.40-12.00) fL Neut % (Auto) 76.2 (48.0-80.0) % Lymph % (Auto) 13.9 L (16.0-40.0) % [place] % (Auto) 9.5 (0.0-15.0) % Eos % (Auto) 0.3 (0.0-7.0) % Baso % (Auto) 0.1 (0.0-1.5) % Neut # (Auto) 5.8 H (1.4-5.7) K/uL Lymph # (Auto) 1.1 (0.6-2.4) K/uL [place] # (Auto) 0.7 (0.0-0.8) K/uL Eos # (Auto) 0.0 (0.0-0.7) K/uL Baso # (Auto) 0.0 (0.0-0.1) K/uL Nucleated RBC % 0.0 /100WBC Nucleated RBCs # 0 K/uL VBG pH (7.31-7.41) VBG pCO2 (35-45) mmHG VBG pO2 (30-40) mmHG VBG HCO3 (22-30) mEq/L VBG Total CO2 (41-51) mmol/L VBG Base Excess (-3.0-3.0) Lactate (0.20-2.00) mmol/L Sodium (136-145) mmol/L Potassium (3.5-5.1) mmol/L Chloride (98-107) mmol/L Carbon Dioxide (21.0-32.0) mmol/L BUN (7.0-18.0) mg/dL Creatinine (0.6-1.0) mg/dL Est Cr Clr Drug Dosing mL/min Estimated GFR (MDRD) ml/min Glucose (74-106) mg/dL Calcium (8.5-10.1) mg/dL Total Bilirubin (0.2-1.0) mg/dL AST (15-37) IU/L ALT (14-63) IU/L Alkaline Phosphatase (46-116) U/L Troponin I (0.000-0.056) ng/mL B-Natriuretic Peptide 231 H (<100) PG/ML Total Protein (6.4-8.2) g/dL Albumin (3.4-5.0) g/dL Globulin (2.6-4.0) g/dL Albumin/Globulin Ratio (0.9-1.6) SARS-CoV-2 RNA (CARLEE) NEGATIVE (NEGATIVE) 12/19/19 12/19/19 Range/Units 05:20 05:20 WBC (4.0-11.0) K/uL RBC (4.30-5.90) M/uL Hgb (12.0-16.0) g/dL Hct (36.0-46.0) % MCV (80.0-98.0) fL MCH (27.0-32.0) pg MCHC (31.0-37.0) g/dL RDW Std Deviation (28.0-62.0) fl RDW Coeff of Kiet (11.0-15.0) % Plt Count (150-400) K/uL MPV (7.40-12.00) fL Neut % (Auto) (48.0-80.0) % Lymph % (Auto) (16.0-40.0) % [place] % (Auto) (0.0-15.0) % Eos % (Auto) (0.0-7.0) % Baso % (Auto) (0.0-1.5) % Neut # (Auto) (1.4-5.7) K/uL Lymph # (Auto) (0.6-2.4) K/uL [place] # (Auto) (0.0-0.8) K/uL Eos # (Auto) (0.0-0.7) K/uL Baso # (Auto) (0.0-0.1) K/uL Nucleated RBC % /100WBC Nucleated RBCs # K/uL VBG pH (7.31-7.41) VBG pCO2 (35-45) mmHG VBG pO2 (30-40) mmHG VBG HCO3 (22-30) mEq/L VBG Total CO2 (41-51) mmol/L VBG Base Excess (-3.0-3.0) Lactate 0.8 (0.20-2.00) mmol/L Sodium 132 L (136-145) mmol/L Potassium 4.0 (3.5-5.1) mmol/L Chloride 97 L (98-107) mmol/L Carbon Dioxide 27.0 (21.0-32.0) mmol/L BUN 15 (7.0-18.0) mg/dL Creatinine 1.0 (0.6-1.0) mg/dL Est Cr Clr Drug Dosing 30.12 mL/min Estimated GFR (MDRD) 53.8 ml/min Glucose 122 H (74-106) mg/dL Calcium 8.3 L (8.5-10.1) mg/dL Total Bilirubin 0.5 (0.2-1.0) mg/dL AST 29 (15-37) IU/L ALT 22 (14-63) IU/L Alkaline Phosphatase 54 (46-116) U/L Troponin I (0.000-0.056) ng/mL B-Natriuretic Peptide (<100) PG/ML Total Protein 5.8 L (6.4-8.2) g/dL Albumin 3.3 L (3.4-5.0) g/dL Globulin 2.5 L (2.6-4.0) g/dL Albumin/Globulin Ratio 1.3 (0.9-1.6) SARS-CoV-2 RNA (CARLEE) (NEGATIVE) Wilner Results Last 24 Hours: Microbiology 12/18/19 14:40 Influenza Type A Antigen Screen - Final Nasopharyngeal Swab NEGATIVE INFLUENZA A VIRUS AG REFERENCE RANGE: NEGATIVE Influenza Type B Antigen Screen - Final NEGATIVE INFLUENZA B VIRUS AG REFERENCE RANGE: NEGATIVE Med Orders - Current: Current Medications Acetaminophen (Tylenol) 650 mg PO Q4H PRN PRN Reason: Pain (Mild 1-3)/fever Albuterol/Ipratropium (Duoneb 3.0-0.5 Mg/3 Ml) 3 ml NEB Q6H PRN PRN Reason: Dyspnea Last Admin: 12/19/19 04:20 Dose: 3 ml Documented by: Amlodipine Besylate (Norvasc) 5 mg PO DAILY [facility] Last Admin: 12/19/19 08:22 Dose: 5 mg Documented by: Budesonide/Formoterol Fumarate (Symbicort 160-4.5 Mcg) 0 gm INH Q12HR [facility] Last Admin: 12/19/19 09:55 Dose: 1 inhalation Documented by: Diltiazem HCl (Diltiazem) 10 mg IVPUSH Q3H PRN PRN Reason: for HR >120 Doxycycline Hyclate (Vibramycin) 100 mg PO Q12HR [facility] Last Admin: 12/19/19 08:22 Dose: 100 mg Documented by: Heparin Sodium (Porcine) (Heparin Sodium) 5,000 units SUBCUT Q8H [facility] Last Admin: 12/19/19 10:06 Dose: 5,000 units Documented by: Methylprednisolone Sodium Succinate (Solu-Medrol) 40 mg IVPUSH Q12H [facility] Last Admin: 12/19/19 08:23 Dose: 40 mg Documented by: Metoprolol Tartrate (Lopressor) 25 mg PO BID [facility] Last Admin: 12/19/19 08:22 Dose: 25 mg Documented by: Pantoprazole Sodium (Protonix) 40 mg PO DAILY [facility] Last Admin: 12/19/19 08:22 Dose: 40 mg Documented by: Sertraline HCl (Zoloft) 50 mg PO BEDTIME [facility] Last Admin: 12/18/19 21:35 Dose: 50 mg Documented by: Sodium Chloride (Saline Flush) 10 ml FLUSH ASDIRECTED PRN PRN Reason: Keep Vein Open Last Admin: 12/19/19 04:08 Dose: 10 ml Documented by: Sodium Chloride (Saline Flush) 2.5 ml FLUSH ASDIRECTED PRN PRN Reason: Keep Vein Open Last Admin: 12/18/19 14:32 Dose: 2.5 ml Documented by: Discontinued Medications Albuterol (Proventil Neb Soln) Confirm Administered Dose 5 mg .ROUTE .STK-MED ONE Stop: 12/18/19 14:09 Last Admin: 12/18/19 14:33 Dose: 5 mg Documented by: Albuterol (Proventil Neb Soln) 10 mg NEB ONETIME ONE Stop: 12/18/19 14:56 Last Admin: 12/18/19 15:46 Dose: Not Given Documented by: Albuterol (Proventil Neb Soln) Confirm Administered Dose 5 mg .ROUTE .STK-MED ONE Stop: 12/18/19 15:37 Last Admin: 12/18/19 15:46 Dose: Not Given Documented by: Albuterol (Proventil Neb Soln) 5 mg NEB ONETIME ONE Stop: 12/18/19 15:44 Last Admin: 12/18/19 15:45 Dose: 5 mg Documented by: Albuterol (Proventil) 5 mg NEB QIDRT [place] Albuterol (Proventil) 5 mg NEB NOW STA Stop: 12/18/19 15:49 Last Admin: 12/18/19 15:49 Dose: 5 mg Documented by: Albuterol/Ipratropium (Duoneb 3.0-0.5 Mg/3 Ml) Confirm Administered Dose 6 ml .ROUTE .STK-MED ONE Stop: 12/18/19 14:09 Last Admin: 12/18/19 14:33 Dose: 6 ml Documented by: Albuterol/Ipratropium (Duoneb 3.0-0.5 Mg/3 Ml) 9 ml NEB ONETIME ONE Stop: 12/18/19 14:56 Last Admin: 12/18/19 16:19 Dose: Not Given Documented by: Albuterol/Ipratropium (Duoneb 3.0-0.5 Mg/3 Ml) Confirm Administered Dose 6 ml .ROUTE .STK-MED ONE Stop: 12/18/19 15:38 Last Admin: 12/18/19 15:45 Dose: Not Given Documented by: Albuterol/Ipratropium (Duoneb 3.0-0.5 Mg/3 Ml) 6 ml NEB ONETIME ONE Stop: 12/18/19 15:43 Last Admin: 12/18/19 15:45 Dose: 6 ml Documented by: Albuterol/Ipratropium (Duoneb 3.0-0.5 Mg/3 Ml) 3 ml NEB Q4HRRT [place] Last Admin: 12/18/19 18:03 Dose: Not Given Documented by: Amlodipine Besylate (Norvasc) 10 mg PO ONETIME ONE Stop: 12/18/19 14:54 Last Admin: 12/18/19 15:44 Dose: Not Given Documented by: Lactated Ringer's (Ringers, Lactated) 1,000 mls @ 999 mls/hr IV .BOLUS ONE Stop: 12/18/19 17:00 Last Admin: 12/18/19 16:36 Dose: 999 mls/hr Documented by: Lorazepam (Ativan) 0.5 mg PO ONETIME ONE Stop: 12/18/19 17:56 Last Admin: 12/18/19 18:03 Dose: 0.5 mg Documented by: Methylprednisolone Sodium Succinate (Solu-Medrol) 40 mg IVPUSH ONETIME ONE Stop: 12/18/19 14:21 Last Admin: 12/18/19 14:32 Dose: 40 mg Documented by: - Exam Quality Assessment: Supplemental Oxygen (transitioned from Bipap to current 3L) General: Alert, Oriented, Cooperative, No Acute Distress HEENT: Pupils Equal, Pupils Reactive, EOMI, Mucous Membr. Moist/[place] Neck: Supple, Trachea Midline, No JVD. No: Lymphadenopathy Lungs: Crackles, Wheezing Cardiovascular: Regular Rate, Regular Rhythm GI/Abdominal Exam: Normal Bowel Sounds, Soft, Non-Tender Extremities: Normal Inspection, Normal Range of Motion, Non-Tender, No Pedal Edema, Normal Capillary Refill Peripheral Pulses: 2+: Dorsalis Pedis (L), Dorsalis Pedis (R) Skin: Warm, Dry, Intact Neurological: No New Focal Deficit Psy/Mental Status: Alert, Normal Affect, Normal Mood Sepsis Event Note - Evaluation Sepsis Screening Result: No Definite Risk - Focused Exam Vital Signs: Vital Signs Temp Pulse Pulse Resp BP BP Pulse Ox 12/19/19 08:22 80 151/74 H 12/19/19 08:00 97.3 F 18 151/74 H 97 12/19/19 04:19 97 12/19/19 04:10 97.5 F 76 20 154/66 H 97 12/19/19 00:27 98 F 91 25 H 149/69 H 98 - Problem List & Annotations (1) Acute and chronic respiratory failure SNOMED Code(s): 60016122 Code(s): J96.20 - ACUTE AND CHR RESP FAILURE, UNSP W HYPOXIA OR HYPERCAPNIA Status: Acute Current Visit: Yes (2) SVT (supraventricular tachycardia) SNOMED Code(s): 5135498 Code(s): I47.1 - SUPRAVENTRICULAR TACHYCARDIA Status: Acute Current Visit: Yes (3) NOEMÍ (acute kidney injury) SNOMED Code(s): 64307305, 94766636 Code(s): N17.9 - ACUTE KIDNEY FAILURE, UNSPECIFIED Status: Acute Current Visit: Yes (4) Hyponatremia SNOMED Code(s): 42785743 Code(s): E87.1 - HYPO-OSMOLALITY AND HYPONATREMIA Status: Acute Current Visit: Yes (5) Hypochloremia SNOMED Code(s): 55934641 Code(s): E87.8 - OTH DISORDERS OF ELECTROLYTE AND FLUID BALANCE, NEC Status: Acute Current Visit: Yes - Problem List Review Problem List Initiated/Reviewed/Updated: Yes - Plan Plan:: Assessment and Plan: 1. Acute on chronic hypoxic respiratory failure secondary to COPD exacerbation: - Improved- D/c Bipap used overnight, currently on 3L's oxygen with O2 sat 90's. Will wean as tolerated - DuoNebs q6 PRN - IV solumedrol 40 mg BID - Doxycycline for sputum - CXR showed emphysematous changes. COVID19 and influenza tests were negative. 2. SVT: resolved, continue to monitor on tele 3. NOEMÍ:resolved 4.Hyponatremia, mild: improved -132 today, continue to monitor on daily CMP 5.Hypochloremia: Improved -97 today, continue to monitor on daily CMP 4. DVT prophylaxis: - Heparin 5000 units subcut q8h. 5. Past medical history of HTN and CVA: - Will continue home medications.
[2019-12-19] MEDS: Benzonatate 100 MG Cap PO PRN (15:13)
[2019-12-19] MEDS: Sertraline 50 MG Tab PO SCH (20:11)
[2019-12-20] MEDS: Heparin Sodium 5,000 Units/ML Vial SUBCUT SCH ×3 (01:30→18:36)
[2019-12-20 06:42] LABS: CARBON DIOXIDE,CO2 28.9 mmol/L (21.0-32.0); POTASSIUM,K 4.1 mmol/L (3.5-5.1)
[2019-12-20] MEDS: Sodium Chloride 0.9% 2.5 ML Syringe FLUSH PRN (07:59)
[2019-12-20] MEDS: Doxycycline 100 MG Cap PO SCH ×2 (08:06→20:41)
[2019-12-20] MEDS: methylPREDNISolone Sodium Succinate 40 MG/1 ML SDV IVPUSH SCH (08:06)
[2019-12-20] MEDS: amLODIPine 5 MG Tab PO SCH (08:07)
[2019-12-20] MEDS: Pantoprazole 40 MG Tab.CR PO SCH (08:07)
[2019-12-20] MEDS: Metoprolol Tartrate 25 MG Tab PO SCH ×2 (08:12→20:41)
[2019-12-20] MEDS: Budesonide/Formoterol 160-4.5 MCG/Puff 6 GM Inhaler INH SCH ×2 (08:13→20:43)
--- NOTE | 2019-12-20 09:03 | PCM.PN ---
- General Info Date of Service: 12/20/19 Subjective Update: 79 y/o F admitted for Acute on Chronic Respiratory Failure 2/2 COPD exacerbation. Yesterday was doing well on 2L oxygen therefore transferred back to the general medicine floor from ICU. There were no acute events overnight. States she is not feeling her best this morning given that she is coughing more, but symptoms resolved after taking scheduled Symbicort. Says she has some small clear sputum. Pt was seen and examined at bedside, sitting up in bed on 3L O2 enjoying her pancakes for breakfast. - Review of Systems General: Reports: No Symptoms HEENT: Reports: No Symptoms Pulmonary: Reports: Cough. Denies: Shortness of Breath (on 3L O2) Cardiovascular: Reports: No Symptoms Gastrointestinal: Reports: No Symptoms Genitourinary: Reports: No Symptoms Musculoskeletal: Reports: No Symptoms Skin: Reports: No Symptoms Neurological: Reports: No Symptoms Psychiatric: Reports: No Symptoms - Patient Data Vitals - Most Recent: Last Vital Signs Temp 98.4 F 12/20/19 07:41 Pulse 71 12/20/19 08:12 Resp 16 12/20/19 08:14 BP 141/56 H 12/20/19 08:14 Pulse Ox 94 L 12/20/19 08:14 Weight - Most Recent: 89 lb 1.068 oz I&O - Last 24 Hours: Intake & Output 12/19/19 12/20/19 12/20/19 22:59 06:59 14:59 Intake Total 900 550 Output Total 1150 750 Balance -250 -200 Lab Results Last 24 Hours: Laboratory Results - last 24 hr 12/20/19 12/20/19 Range/Units 05:20 05:20 WBC 8.39 (4.0-11.0) K/uL RBC 4.17 L (4.30-5.90) M/uL Hgb 12.3 (12.0-16.0) g/dL Hct 37.9 (36.0-46.0) % MCV 90.9 (80.0-98.0) fL MCH 29.5 (27.0-32.0) pg MCHC 32.5 (31.0-37.0) g/dL RDW Std Deviation 47.1 (28.0-62.0) fl RDW Coeff of Kiet 14 (11.0-15.0) % Plt Count 223 (150-400) K/uL MPV 10.10 (7.40-12.00) fL Neut % (Auto) 84.7 H (48.0-80.0) % Lymph % (Auto) 9.2 L (16.0-40.0) % [place] % (Auto) 6.1 (0.0-15.0) % Eos % (Auto) 0.0 (0.0-7.0) % Baso % (Auto) 0.0 (0.0-1.5) % Neut # (Auto) 7.1 H (1.4-5.7) K/uL Lymph # (Auto) 0.8 (0.6-2.4) K/uL [place] # (Auto) 0.5 (0.0-0.8) K/uL Eos # (Auto) 0.0 (0.0-0.7) K/uL Baso # (Auto) 0.0 (0.0-0.1) K/uL Nucleated RBC % 0.0 /100WBC Nucleated RBCs # 0 K/uL Sodium 134 L (136-145) mmol/L Potassium 4.1 (3.5-5.1) mmol/L Chloride 99 (98-107) mmol/L Carbon Dioxide 28.9 (21.0-32.0) mmol/L BUN 22 H (7.0-18.0) mg/dL Creatinine 1.0 (0.6-1.0) mg/dL Est Cr Clr Drug Dosing 30.05 mL/min Estimated GFR (MDRD) 53.8 ml/min Glucose 147 H (74-106) mg/dL Calcium 8.4 L (8.5-10.1) mg/dL Total Bilirubin 0.4 (0.2-1.0) mg/dL AST 28 (15-37) IU/L ALT 25 (14-63) IU/L Alkaline Phosphatase 56 (46-116) U/L Total Protein 6.0 L (6.4-8.2) g/dL Albumin 3.4 (3.4-5.0) g/dL Globulin 2.6 (2.6-4.0) g/dL Albumin/Globulin Ratio 1.3 (0.9-1.6) Wilner Results Last 24 Hours: Microbiology 12/18/19 14:28 Aerobic Blood Culture - Preliminary Blood - Venous - Lab Draw NO GROWTH AFTER 1 DAY Anaerobic Blood Culture - Preliminary NO GROWTH AFTER 1 DAY 12/18/19 13:59 Aerobic Blood Culture - Preliminary Blood - Venous NO GROWTH AFTER 1 DAY Anaerobic Blood Culture - Preliminary NO GROWTH AFTER 1 DAY Med Orders - Current: Current Medications Acetaminophen (Tylenol) 650 mg PO Q4H PRN PRN Reason: Pain (Mild 1-3)/fever Albuterol/Ipratropium (Duoneb 3.0-0.5 Mg/3 Ml) 3 ml NEB Q6H PRN PRN Reason: Dyspnea Last Admin: 12/19/19 04:20 Dose: 3 ml Documented by: Amlodipine Besylate (Norvasc) 5 mg PO DAILY [facility] Last Admin: 12/20/19 08:07 Dose: 5 mg Documented by: Benzonatate (Tessalon Perles) 100 mg PO QID PRN PRN Reason: Cough Last Admin: 12/19/19 15:13 Dose: 100 mg Documented by: Budesonide/Formoterol Fumarate (Symbicort 160-4.5 Mcg) 0 gm INH Q12HR [facility] Last Admin: 12/20/19 08:13 Dose: 1 inhalation Documented by: Diltiazem HCl (Diltiazem) 10 mg IVPUSH Q3H PRN PRN Reason: for HR >120 Doxycycline Hyclate (Vibramycin) 100 mg PO Q12HR [facility] Last Admin: 12/20/19 08:06 Dose: 100 mg Documented by: Heparin Sodium (Porcine) (Heparin Sodium) 5,000 units SUBCUT Q8H [facility] Last Admin: 12/20/19 01:30 Dose: 5,000 units Documented by: Methylprednisolone Sodium Succinate (Solu-Medrol) 40 mg IVPUSH Q12H [facility] Last Admin: 12/20/19 08:06 Dose: 40 mg Documented by: Metoprolol Tartrate (Lopressor) 25 mg PO BID [facility] Last Admin: 12/20/19 08:12 Dose: 25 mg Documented by: Pantoprazole Sodium (Protonix) 40 mg PO DAILY [facility] Last Admin: 12/20/19 08:07 Dose: 40 mg Documented by: Sertraline HCl (Zoloft) 50 mg PO BEDTIME [facility] Last Admin: 12/19/19 20:11 Dose: 50 mg Documented by: Sodium Chloride (Saline Flush) 10 ml FLUSH ASDIRECTED PRN PRN Reason: Keep Vein Open Last Admin: 12/19/19 04:08 Dose: 10 ml Documented by: Sodium Chloride (Saline Flush) 2.5 ml FLUSH ASDIRECTED PRN PRN Reason: Keep Vein Open Last Admin: 12/20/19 07:59 Dose: 2.5 ml Documented by: Discontinued Medications Albuterol (Proventil Neb Soln) Confirm Administered Dose 5 mg .ROUTE .STK-MED ONE Stop: 12/18/19 14:09 Last Admin: 12/18/19 14:33 Dose: 5 mg Documented by: Albuterol (Proventil Neb Soln) 10 mg NEB ONETIME ONE Stop: 12/18/19 14:56 Last Admin: 12/18/19 15:46 Dose: Not Given Documented by: Albuterol (Proventil Neb Soln) Confirm Administered Dose 5 mg .ROUTE .STK-MED ONE Stop: 12/18/19 15:37 Last Admin: 12/18/19 15:46 Dose: Not Given Documented by: Albuterol (Proventil Neb Soln) 5 mg NEB ONETIME ONE Stop: 12/18/19 15:44 Last Admin: 12/18/19 15:45 Dose: 5 mg Documented by: Albuterol (Proventil) 5 mg NEB QIDRT [place] Albuterol (Proventil) 5 mg NEB NOW STA Stop: 12/18/19 15:49 Last Admin: 12/18/19 15:49 Dose: 5 mg Documented by: Albuterol/Ipratropium (Duoneb 3.0-0.5 Mg/3 Ml) Confirm Administered Dose 6 ml .ROUTE .STK-MED ONE Stop: 12/18/19 14:09 Last Admin: 12/18/19 14:33 Dose: 6 ml Documented by: Albuterol/Ipratropium (Duoneb 3.0-0.5 Mg/3 Ml) 9 ml NEB ONETIME ONE Stop: 12/18/19 14:56 Last Admin: 12/18/19 16:19 Dose: Not Given Documented by: Albuterol/Ipratropium (Duoneb 3.0-0.5 Mg/3 Ml) Confirm Administered Dose 6 ml .ROUTE .STK-MED ONE Stop: 12/18/19 15:38 Last Admin: 12/18/19 15:45 Dose: Not Given Documented by: Albuterol/Ipratropium (Duoneb 3.0-0.5 Mg/3 Ml) 6 ml NEB ONETIME ONE Stop: 12/18/19 15:43 Last Admin: 12/18/19 15:45 Dose: 6 ml Documented by: Albuterol/Ipratropium (Duoneb 3.0-0.5 Mg/3 Ml) 3 ml NEB Q4HRRT [place] Last Admin: 12/18/19 18:03 Dose: Not Given Documented by: Amlodipine Besylate (Norvasc) 10 mg PO ONETIME ONE Stop: 12/18/19 14:54 Last Admin: 12/18/19 15:44 Dose: Not Given Documented by: Calcium Carbonate/Glycine (Tums) 500 mg PO ONETIME ONE Stop: 12/19/19 11:31 Last Admin: 12/19/19 11:35 Dose: 500 mg Documented by: Lactated Ringer's (Ringers, Lactated) 1,000 mls @ 999 mls/hr IV .BOLUS ONE Stop: 12/18/19 17:00 Last Admin: 12/18/19 16:36 Dose: 999 mls/hr Documented by: Lorazepam (Ativan) 0.5 mg PO ONETIME ONE Stop: 12/18/19 17:56 Last Admin: 12/18/19 18:03 Dose: 0.5 mg Documented by: Methylprednisolone Sodium Succinate (Solu-Medrol) 40 mg IVPUSH ONETIME ONE Stop: 12/18/19 14:21 Last Admin: 12/18/19 14:32 Dose: 40 mg Documented by: - Exam Quality Assessment: Supplemental Oxygen (3L) General: Alert, Oriented, Cooperative, No Acute Distress HEENT: Pupils Equal, Pupils Reactive, EOMI, Mucous Membr. Moist/[place] Neck: Supple, Trachea Midline, No JVD Lungs: Clear to Auscultation, Normal Respiratory Effort. No: Crackles, Rales, Rhonchi, Rub, Stridor, Wheezing Cardiovascular: Regular Rate, Regular Rhythm, No Murmurs. No: Gallops, Rubs GI/Abdominal Exam: Normal Bowel Sounds, Soft, Non-Tender, No Distention Extremities: Normal Inspection, Normal Range of Motion, Non-Tender, No Pedal Edema, Normal Capillary Refill Peripheral Pulses: 2+: Dorsalis Pedis (L), Dorsalis Pedis (R) Skin: Warm, Dry, Intact Neurological: No New Focal Deficit, Normal Speech, Normal Tone, Strength Equal Bilateral, Reflexes Equal Bilateral, Sensation Intact, Cranial Nerves Intact Psy/Mental Status: Alert, Normal Affect, Normal Mood Sepsis Event Note - Evaluation Sepsis Screening Result: No Definite Risk - Focused Exam Vital Signs: Vital Signs Temp Pulse Pulse Resp BP BP Pulse Ox 12/20/19 08:14 16 141/56 H 94 L 12/20/19 08:12 71 141/56 H 12/20/19 08:07 141/56 H 12/20/19 07:41 98.4 F 85 18 150/95 H 89 L 12/20/19 05:00 96.7 F L 75 16 144/99 H 99 12/20/19 01:36 97.3 F 75 14 150/64 H 97 - Problem List & Annotations (1) Acute and chronic respiratory failure SNOMED Code(s): 90017506 Code(s): J96.20 - ACUTE AND CHR RESP FAILURE, UNSP W HYPOXIA OR HYPERCAPNIA Status: Acute Current Visit: Yes (2) SVT (supraventricular tachycardia) SNOMED Code(s): 1309405 Code(s): I47.1 - SUPRAVENTRICULAR TACHYCARDIA Status: Acute Current Visit: Yes (3) NOEMÍ (acute kidney injury) SNOMED Code(s): 60814582, 19593904 Code(s): N17.9 - ACUTE KIDNEY FAILURE, UNSPECIFIED Status: Acute Current Visit: Yes (4) Hyponatremia SNOMED Code(s): 25232857 Code(s): E87.1 - HYPO-OSMOLALITY AND HYPONATREMIA Status: Acute Current Visit: Yes (5) Hypochloremia SNOMED Code(s): 57725338 Code(s): E87.8 - OTH DISORDERS OF ELECTROLYTE AND FLUID BALANCE, NEC Status: Acute Current Visit: Yes (6) NOEMÍ (acute kidney injury) SNOMED Code(s): 75407186, 75489827 Code(s): N17.9 - ACUTE KIDNEY FAILURE, UNSPECIFIED Status: Acute Current Visit: Yes (7) Hypertension SNOMED Code(s): 57411183 Code(s): I10 - ESSENTIAL (PRIMARY) HYPERTENSION Status: Acute Current Visit: Yes (8) COPD exacerbation SNOMED Code(s): 405740186 Code(s): J44.1 - CHRONIC OBSTRUCTIVE PULMONARY DISEASE W (ACUTE) EXACERBATION Status: Acute Current Visit: Yes - Problem List Review Problem List Initiated/Reviewed/Updated: Yes - My Orders Last 24 Hours: My Active Orders 12/19/19 14:53 Benzonatate [Tessalon Perles] 100 mg PO QID PRN 12/21/19 05:11 CBC WITH AUTO DIFF [HEME] AM CMP [COMPREHENSIVE METABOLIC PN,CMP] [CHEM] AM - Plan Plan:: Assessment and Plan: 1. Acute on chronic hypoxic respiratory failure secondary to COPD exacerbation: - Improved- currently on 3L's oxygen with O2 sat 92%. Will wean as tolerated, with goal to send home without O2 since she is not O2 dependent at home. - DuoNebs q6 RRRT - IV solumedrol 40 mg changed to QD - Doxycycline - CXR showed emphysematous changes. COVID19 and influenza tests were negative. 2. SVT: resolved, continue to monitor on tele, on amlodipine 3. NOEMÍ:BUN increased slightly to 22, encouraged pt to hydrate given cardiac history want to avoid fluid overloading. Will continue to monitor and consider 1/4 - 1/2 L NS if BUN doesn't improve. Avoid nephrotoxic agents. 4.Hypertension: metoprolol was held yesterday due to B-blockade can worsen respiratory status. Will resume today as BP has been elevated. 5.Hyponatremia, mild: improved -134 today, continue to monitor on daily CMP 6.Hypochloremia: resolved, 99 today 7. DVT prophylaxis: - Heparin 5000 units subcut q8h. 8. Past medical history of HTN and CVA: - Will continue home medications.
[2019-12-20] MEDS ORDERED: methylPREDNISolone Sodium Succinate 40 MG/1 ML SDV IVPUSH SCH (10:45)
[2019-12-20] MEDS: Albuterol/Ipratropium 3.0-0.5 MG/3 ML Neb Soln NEB SCH ×2 (11:21→17:48)
[2019-12-20] MEDS: Benzonatate 100 MG Cap PO PRN (18:39)
[2019-12-20] MEDS: Sertraline 50 MG Tab PO SCH (20:41)
[2019-12-21] MEDS: Albuterol/Ipratropium 3.0-0.5 MG/3 ML Neb Soln NEB SCH ×5 (00:07→23:59)
[2019-12-21] MEDS: Benzonatate 100 MG Cap PO PRN (00:13)
[2019-12-21] MEDS: Heparin Sodium 5,000 Units/ML Vial SUBCUT SCH ×3 (01:59→19:14)
[2019-12-21 06:53] LABS: CARBON DIOXIDE,CO2 27.1 mmol/L (21.0-32.0); POTASSIUM,K 3.3 mmol/L (3.5-5.1)
[2019-12-21] MEDS: Budesonide/Formoterol 160-4.5 MCG/Puff 6 GM Inhaler INH SCH ×2 (09:11→20:59)
[2019-12-21] MEDS: Doxycycline 100 MG Cap PO SCH ×2 (09:18→21:30)
[2019-12-21] MEDS: Metoprolol Tartrate 25 MG Tab PO SCH ×2 (09:19→21:29)
[2019-12-21] MEDS: amLODIPine 5 MG Tab PO SCH (09:19)
[2019-12-21] MEDS: Pantoprazole 40 MG Tab.CR PO SCH (09:26)
[2019-12-21] MEDS: methylPREDNISolone Sodium Succinate 40 MG/1 ML SDV IVPUSH SCH (11:19)
[2019-12-21] MEDS ORDERED: Polyethylene Glycol 3350 Powder 17 GM Packet PO ONE (12:49)
[2019-12-21] MEDS ORDERED: Potassium Chloride 10% 20 MEQ/15 ML Soln 30 ML UD Cup PO ONE (13:00)
[2019-12-21] MEDS ORDERED: Sodium Chloride 0.9% 500 ML IV SCH ×2 (13:00→15:00)
[2019-12-21] MEDS ORDERED: NS + KCl 20mEq/L 1,000 ML IV SCH (14:00)
--- NOTE | 2019-12-21 14:04 | PCM.PN ---
<Talia May - Last Filed: 12/21/19 16:49> - General Info Date of Service: 12/21/19 - Review of Systems General: Reports: No Symptoms HEENT: Reports: No Symptoms Pulmonary: Reports: No Symptoms Cardiovascular: Reports: No Symptoms Gastrointestinal: Reports: No Symptoms Genitourinary: Reports: No Symptoms Musculoskeletal: Reports: No Symptoms Skin: Reports: No Symptoms Neurological: Reports: Dizziness Psychiatric: Reports: No Symptoms - Patient Data Vitals - Most Recent: Last Vital Signs Temp 97.1 F 12/21/19 12:13 Pulse 69 12/21/19 12:13 Resp 18 12/21/19 12:13 BP 109/61 12/21/19 12:13 Pulse Ox 90 L 12/21/19 12:13 Weight - Most Recent: 40.4 kg I&O - Last 24 Hours: Intake & Output 12/20/19 12/21/19 12/21/19 22:59 06:59 14:59 Intake Total 820 600 Output Total 550 1100 Balance 270 -500 Lab Results Last 24 Hours: Laboratory Results - last 24 hr 12/21/19 12/21/19 Range/Units 05:30 05:30 WBC 10.71 (4.0-11.0) K/uL RBC 4.48 (4.30-5.90) M/uL Hgb 12.9 (12.0-16.0) g/dL Hct 40.7 (36.0-46.0) % MCV 90.8 (80.0-98.0) fL MCH 28.8 (27.0-32.0) pg MCHC 31.7 (31.0-37.0) g/dL RDW Std Deviation 48.0 (28.0-62.0) fl RDW Coeff of Kiet 14 (11.0-15.0) % Plt Count 232 (150-400) K/uL MPV 10.30 (7.40-12.00) fL Neut % (Auto) 74.5 (48.0-80.0) % Lymph % (Auto) 16.9 (16.0-40.0) % [place] % (Auto) 7.7 (0.0-15.0) % Eos % (Auto) 0.7 (0.0-7.0) % Baso % (Auto) 0.2 (0.0-1.5) % Neut # (Auto) 8.0 H (1.4-5.7) K/uL Lymph # (Auto) 1.8 (0.6-2.4) K/uL [place] # (Auto) 0.8 (0.0-0.8) K/uL Eos # (Auto) 0.1 (0.0-0.7) K/uL Baso # (Auto) 0.0 (0.0-0.1) K/uL Nucleated RBC % 0.0 /100WBC Nucleated RBCs # 0 K/uL Sodium 135 L (136-145) mmol/L Potassium 3.3 L (3.5-5.1) mmol/L Chloride 99 (98-107) mmol/L Carbon Dioxide 27.1 (21.0-32.0) mmol/L BUN 28 H (7.0-18.0) mg/dL Creatinine 1.0 (0.6-1.0) mg/dL Est Cr Clr Drug Dosing 30.05 mL/min Estimated GFR (MDRD) 53.8 ml/min Glucose 87 (74-106) mg/dL Calcium 8.8 (8.5-10.1) mg/dL Total Bilirubin 0.5 (0.2-1.0) mg/dL AST 22 (15-37) IU/L ALT 23 (14-63) IU/L Alkaline Phosphatase 65 (46-116) U/L Total Protein 5.9 L (6.4-8.2) g/dL Albumin 3.1 L (3.4-5.0) g/dL Globulin 2.8 (2.6-4.0) g/dL Albumin/Globulin Ratio 1.1 (0.9-1.6) [place] Results Last 24 Hours: Microbiology 12/18/19 14:28 Aerobic Blood Culture - Preliminary Blood - Venous - Lab Draw NO GROWTH AFTER 2 DAYS Anaerobic Blood Culture - Preliminary NO GROWTH AFTER 2 DAYS 12/18/19 13:59 Aerobic Blood Culture - Preliminary Blood - Venous NO GROWTH AFTER 2 DAYS Anaerobic Blood Culture - Preliminary NO GROWTH AFTER 2 DAYS Med Orders - Current: Current Medications Acetaminophen (Tylenol) 650 mg PO Q4H PRN PRN Reason: Pain (Mild 1-3)/fever Last Admin: 12/21/19 04:44 Dose: 650 mg Documented by: Albuterol/Ipratropium (Duoneb 3.0-0.5 Mg/3 Ml) 3 ml NEB Q6HRRT [facility] Last Admin: 12/21/19 11:33 Dose: 3 ml Documented by: Amlodipine Besylate (Norvasc) 5 mg PO DAILY [facility] Last Admin: 12/21/19 09:19 Dose: 5 mg Documented by: Benzonatate (Tessalon Perles) 100 mg PO QID PRN PRN Reason: Cough Last Admin: 12/21/19 00:13 Dose: 100 mg Documented by: Budesonide/Formoterol Fumarate (Symbicort 160-4.5 Mcg) 0 gm INH Q12HR [facility] Last Admin: 12/21/19 09:11 Dose: 1 inhalation Documented by: Diltiazem HCl (Diltiazem) 10 mg IVPUSH Q3H PRN PRN Reason: for HR >120 Doxycycline Hyclate (Vibramycin) 100 mg PO Q12HR [facility] Last Admin: 12/21/19 09:18 Dose: 100 mg Documented by: Heparin Sodium (Porcine) (Heparin Sodium) 5,000 units SUBCUT Q8H [facility] Last Admin: 12/21/19 09:26 Dose: 5,000 units Documented by: Potassium Chloride/Sodium Chloride (Normal Saline With 20 Meq Kcl) 1,000 mls @ 125 mls/hr IV ASDIRECTED [facility] Methylprednisolone Sodium Succinate (Solu-Medrol) 40 mg IVPUSH Q24H [facility] Last Admin: 12/21/19 11:19 Dose: 40 mg Documented by: Metoprolol Tartrate (Lopressor) 25 mg PO BID [facility] Last Admin: 12/21/19 09:19 Dose: 25 mg Documented by: Pantoprazole Sodium (Protonix) 40 mg PO DAILY [facility] Last Admin: 12/21/19 09:26 Dose: 40 mg Documented by: Sertraline HCl (Zoloft) 50 mg PO BEDTIME [facility] Last Admin: 12/20/19 20:41 Dose: 50 mg Documented by: Sodium Chloride (Saline Flush) 10 ml FLUSH ASDIRECTED PRN PRN Reason: Keep Vein Open Last Admin: 12/19/19 04:08 Dose: 10 ml Documented by: Sodium Chloride (Saline Flush) 2.5 ml FLUSH ASDIRECTED PRN PRN Reason: Keep Vein Open Last Admin: 12/20/19 07:59 Dose: 2.5 ml Documented by: Discontinued Medications Albuterol (Proventil Neb Soln) Confirm Administered Dose 5 mg .ROUTE .STK-MED ONE Stop: 12/18/19 14:09 Last Admin: 12/18/19 14:33 Dose: 5 mg Documented by: Albuterol (Proventil Neb Soln) 10 mg NEB ONETIME ONE Stop: 12/18/19 14:56 Last Admin: 12/18/19 15:46 Dose: Not Given Documented by: Albuterol (Proventil Neb Soln) Confirm Administered Dose 5 mg .ROUTE .STK-MED ONE Stop: 12/18/19 15:37 Last Admin: 12/18/19 15:46 Dose: Not Given Documented by: Albuterol (Proventil Neb Soln) 5 mg NEB ONETIME ONE Stop: 12/18/19 15:44 Last Admin: 12/18/19 15:45 Dose: 5 mg Documented by: Albuterol (Proventil) 5 mg NEB QIDRT [place] Albuterol (Proventil) 5 mg NEB NOW STA Stop: 12/18/19 15:49 Last Admin: 12/18/19 15:49 Dose: 5 mg Documented by: Albuterol/Ipratropium (Duoneb 3.0-0.5 Mg/3 Ml) Confirm Administered Dose 6 ml .ROUTE .STK-MED ONE Stop: 12/18/19 14:09 Last Admin: 12/18/19 14:33 Dose: 6 ml Documented by: Albuterol/Ipratropium (Duoneb 3.0-0.5 Mg/3 Ml) 9 ml NEB ONETIME ONE Stop: 12/18/19 14:56 Last Admin: 12/18/19 16:19 Dose: Not Given Documented by: Albuterol/Ipratropium (Duoneb 3.0-0.5 Mg/3 Ml) Confirm Administered Dose 6 ml .ROUTE .STK-MED ONE Stop: 12/18/19 15:38 Last Admin: 12/18/19 15:45 Dose: Not Given Documented by: Albuterol/Ipratropium (Duoneb 3.0-0.5 Mg/3 Ml) 6 ml NEB ONETIME ONE Stop: 12/18/19 15:43 Last Admin: 12/18/19 15:45 Dose: 6 ml Documented by: Albuterol/Ipratropium (Duoneb 3.0-0.5 Mg/3 Ml) 3 ml NEB Q4HRRT [facility] Last Admin: 12/18/19 18:03 Dose: Not Given Documented by: Albuterol/Ipratropium (Duoneb 3.0-0.5 Mg/3 Ml) 3 ml NEB Q6H PRN PRN Reason: Dyspnea Last Admin: 12/19/19 04:20 Dose: 3 ml Documented by: Amlodipine Besylate (Norvasc) 10 mg PO ONETIME ONE Stop: 12/18/19 14:54 Last Admin: 12/18/19 15:44 Dose: Not Given Documented by: Calcium Carbonate/Glycine (Tums) 500 mg PO ONETIME ONE Stop: 12/19/19 11:31 Last Admin: 12/19/19 11:35 Dose: 500 mg Documented by: Lactated Ringer's (Ringers, Lactated) 1,000 mls @ 999 mls/hr IV .BOLUS ONE Stop: 12/18/19 17:00 Last Admin: 12/18/19 16:36 Dose: 999 mls/hr Documented by: Sodium Chloride (Normal Saline) 500 mls @ 999 mls/hr IV .BOLUS [place] Sodium Chloride (Normal Saline) 500 mls @ 125 mls/hr IV ASDIRECTED [facility] Lorazepam (Ativan) 0.5 mg PO ONETIME ONE Stop: 12/18/19 17:56 Last Admin: 12/18/19 18:03 Dose: 0.5 mg Documented by: Methylprednisolone Sodium Succinate (Solu-Medrol) 40 mg IVPUSH ONETIME ONE Stop: 12/18/19 14:21 Last Admin: 12/18/19 14:32 Dose: 40 mg Documented by: Methylprednisolone Sodium Succinate (Solu-Medrol) 40 mg IVPUSH Q12H [facility] Last Admin: 12/20/19 08:06 Dose: 40 mg Documented by: Methylprednisolone Sodium Succinate (Solu-Medrol) 40 mg IVPUSH Q24H [facility] Last Admin: 12/20/19 13:50 Dose: Not Given Documented by: Polyethylene Glycol (Miralax) 17 gm PO ONETIME ONE Stop: 12/21/19 12:50 Last Admin: 12/21/19 13:41 Dose: 17 gm Documented by: Potassium Chloride (Potassium Chloride) 40 meq PO ONETIME ONE Stop: 12/21/19 13:01 Last Admin: 12/21/19 13:41 Dose: Not Given Documented by: - Exam General: Alert, Oriented, Cooperative, No Acute Distress HEENT: Pupils Equal, Pupils Reactive, EOMI, Mucous Membr. Moist/[place] Neck: Supple, Trachea Midline, No JVD, No Thyromegaly Lungs: Clear to Auscultation, Normal Respiratory Effort Cardiovascular: Regular Rate, Regular Rhythm. No: No Murmurs, Irregular Rhythm GI/Abdominal Exam: Normal Bowel Sounds, Soft, Non-Tender, No Organomegaly, No Distention, No Abnormal Bruit, No Mass Extremities: Normal Inspection, Normal Range of Motion, No Pedal Edema, Normal Capillary Refill Peripheral Pulses: 2+: Dorsalis Pedis (L), Dorsalis Pedis (R) Skin: Warm, Dry Neurological: No New Focal Deficit Psy/Mental Status: Alert, Normal Affect, Normal Mood Sepsis Event Note - Evaluation Sepsis Screening Result: No Definite Risk - Focused Exam Vital Signs: Vital Signs Temp Pulse Pulse Resp BP BP Pulse Ox 12/21/19 12:13 97.1 F 69 18 109/61 90 L 12/21/19 09:19 71 167/76 H 12/21/19 07:16 97.4 F 71 15 167/76 H 91 L 12/21/19 07:15 98.3 F 80 16 132/62 93 L 12/21/19 04:00 97.6 F 73 18 170/72 H 92 L - Problem List & Annotations (1) Acute and chronic respiratory failure SNOMED Code(s): 64128845 Code(s): J96.20 - ACUTE AND CHR RESP FAILURE, UNSP W HYPOXIA OR HYPERCAPNIA Status: Acute (2) NOEMÍ (acute kidney injury) SNOMED Code(s): 06251930, 75081577 Code(s): N17.9 - ACUTE KIDNEY FAILURE, UNSPECIFIED Status: Acute (3) Hyponatremia SNOMED Code(s): 47937174 Code(s): E87.1 - HYPO-OSMOLALITY AND HYPONATREMIA Status: Acute (4) NOEMÍ (acute kidney injury) SNOMED Code(s): 02548408, 78290113 Code(s): N17.9 - ACUTE KIDNEY FAILURE, UNSPECIFIED Status: Acute (5) Hypertension SNOMED Code(s): 77144024 Code(s): I10 - ESSENTIAL (PRIMARY) HYPERTENSION Status: Acute (6) COPD exacerbation SNOMED Code(s): 934400798 Code(s): J44.1 - CHRONIC OBSTRUCTIVE PULMONARY DISEASE W (ACUTE) EXACERBATION Status: Acute (7) Hypokalemia SNOMED Code(s): 98297137 Code(s): E87.6 - HYPOKALEMIA Status: Acute (8) Elevated BUN SNOMED Code(s): 849754014 Code(s): R79.9 - ABNORMAL FINDING OF BLOOD CHEMISTRY, UNSPECIFIED Status: Acute (9) Hypertension SNOMED Code(s): 49995781 Code(s): I10 - ESSENTIAL (PRIMARY) HYPERTENSION Status: Acute (10) Constipation SNOMED Code(s): 47161125 Code(s): K59.00 - CONSTIPATION, UNSPECIFIED Status: Acute (11) COPD (chronic obstructive pulmonary disease) SNOMED Code(s): 47298667 Code(s): J44.9 - CHRONIC OBSTRUCTIVE PULMONARY DISEASE, UNSPECIFIED Status: Chronic Priority: Medium Qualifiers: COPD type: emphysema Emphysema type: unspecified Qualified Code(s): J43.9 - Emphysema, unspecified - Problem List Review Problem List Initiated/Reviewed/Updated: Yes - My Orders Last 24 Hours: My Active Orders 12/20/19 13:53 Consult to Home Care [Consult to Home Health] [CONS] Routine 12/21/19 12:58 Consult to Physical Therapy [PT Evaluation and Treatment] [CONS] Routine - Plan Plan:: Assessment and Plan: 1. Acute on chronic hypoxic respiratory failure secondary to COPD exacerbation: - Improved- currently on 3L's oxygen with O2 sat 92%. Will wean as tolerated, with goal to send home without O2 since she is not O2 dependent at home. - DuoNebs q6 RRRT - IV solumedrol 40 mg changed to QD - Doxycycline - CXR showed emphysematous changes. COVID19 and influenza tests were negative. 2. Hypertension: restarted metoprolol 25 mg BID, will continue to monitor and consider increasing to 50mg BID if it remains elevated. 3. Elevated BUN increased slightly to 28, Bolus 500cc NS, followed by 1/2 L NS maintenance 125if BUN . Avoid nephrotoxic agents. 4.Hyponatremia, mild: stable -133 today, asymptomatic, continue to monitor on daily CMP 5. Hypokalemia: 3.3, replete 40meq in fluids. Recheck with daily cmp 6. DVT prophylaxis: - Heparin 5000 units subcut q8h. 7. Past medical history of HTN and CVA: - Will continue home medications. <Mally Ding - Last Filed: 12/23/19 12:58> - Patient Data Vitals - Most Recent: Last Vital Signs Temp 37.2 C 12/22/19 12:00 Pulse 85 12/22/19 12:00 Resp 20 12/22/19 13:00 BP 140/60 12/22/19 12:00 Pulse Ox 91 L 12/22/19 13:00 Orthostatic Blood Pressure [ 102/54 Standing] Orthostatic Blood Pressure [ 134/71 Sitting] Orthostatic Blood Pressure [ 159/64 Supine] Wilner Results Last 24 Hours: Microbiology 12/18/19 14:28 Aerobic Blood Culture - Preliminary Blood - Venous - Lab Draw NO GROWTH AFTER 4 DAYS Anaerobic Blood Culture - Preliminary NO GROWTH AFTER 4 DAYS 12/18/19 13:59 Aerobic Blood Culture - Preliminary Blood - Venous NO GROWTH AFTER 4 DAYS Anaerobic Blood Culture - Preliminary NO GROWTH AFTER 4 DAYS Med Orders - Current: Current Medications Discontinued Medications Acetaminophen (Tylenol) 650 mg PO Q4H PRN PRN Reason: Pain (Mild 1-3)/fever Last Admin: 12/21/19 04:44 Dose: 650 mg Documented by: Albuterol (Proventil Neb Soln) Confirm Administered Dose 5 mg .ROUTE .STK-MED ONE Stop: 12/18/19 14:09 Last Admin: 12/18/19 14:33 Dose: 5 mg Documented by: Albuterol (Proventil Neb Soln) 10 mg NEB ONETIME ONE Stop: 12/18/19 14:56 Last Admin: 12/18/19 15:46 Dose: Not Given Documented by: Albuterol (Proventil Neb Soln) Confirm Administered Dose 5 mg .ROUTE .STK-MED ONE Stop: 12/18/19 15:37 Last Admin: 12/18/19 15:46 Dose: Not Given Documented by: Albuterol (Proventil Neb Soln) 5 mg NEB ONETIME ONE Stop: 12/18/19 15:44 Last Admin: 12/18/19 15:45 Dose: 5 mg Documented by: Albuterol (Proventil) 5 mg NEB QIDRT [place] Albuterol (Proventil) 5 mg NEB NOW STA Stop: 12/18/19 15:49 Last Admin: 12/18/19 15:49 Dose: 5 mg Documented by: Albuterol/Ipratropium (Duoneb 3.0-0.5 Mg/3 Ml) Confirm Administered Dose 6 ml .ROUTE .STK-MED ONE Stop: 12/18/19 14:09 Last Admin: 12/18/19 14:33 Dose: 6 ml Documented by: Albuterol/Ipratropium (Duoneb 3.0-0.5 Mg/3 Ml) 9 ml NEB ONETIME ONE Stop: 12/18/19 14:56 Last Admin: 12/18/19 16:19 Dose: Not Given Documented by: Albuterol/Ipratropium (Duoneb 3.0-0.5 Mg/3 Ml) Confirm Administered Dose 6 ml .ROUTE .STK-MED ONE Stop: 12/18/19 15:38 Last Admin: 12/18/19 15:45 Dose: Not Given Documented by: Albuterol/Ipratropium (Duoneb 3.0-0.5 Mg/3 Ml) 6 ml NEB ONETIME ONE Stop: 12/18/19 15:43 Last Admin: 12/18/19 15:45 Dose: 6 ml Documented by: Albuterol/Ipratropium (Duoneb 3.0-0.5 Mg/3 Ml) 3 ml NEB Q4HRRT [facility] Last Admin: 12/18/19 18:03 Dose: Not Given Documented by: Albuterol/Ipratropium (Duoneb 3.0-0.5 Mg/3 Ml) 3 ml NEB Q6H PRN PRN Reason: Dyspnea Last Admin: 12/19/19 04:20 Dose: 3 ml Documented by: Albuterol/Ipratropium (Duoneb 3.0-0.5 Mg/3 Ml) 3 ml NEB Q6HRRT [facility] Last Admin: 12/22/19 06:33 Dose: 3 ml Documented by: Amlodipine Besylate (Norvasc) 10 mg PO ONETIME ONE Stop: 12/18/19 14:54 Last Admin: 12/18/19 15:44 Dose: Not Given Documented by: Amlodipine Besylate (Norvasc) 5 mg PO DAILY [facility] Last Admin: 12/22/19 09:08 Dose: 5 mg Documented by: Benzonatate (Tessalon Perles) 100 mg PO QID PRN PRN Reason: Cough Last Admin: 12/21/19 00:13 Dose: 100 mg Documented by: Budesonide/Formoterol Fumarate (Symbicort 160-4.5 Mcg) 0 gm INH Q12HR [facility] Last Admin: 12/22/19 09:21 Dose: 1 inhalation Documented by: Calcium Carbonate/Glycine (Tums) 500 mg PO ONETIME ONE Stop: 12/19/19 11:31 Last Admin: 12/19/19 11:35 Dose: 500 mg Documented by: Diltiazem HCl (Diltiazem) 10 mg IVPUSH Q3H PRN PRN Reason: for HR >120 Docusate Sodium (Colace) 100 mg PO DAILY [facility] Last Admin: 12/22/19 09:08 Dose: 100 mg Documented by: Doxycycline Hyclate (Vibramycin) 100 mg PO Q12HR [facility] Last Admin: 12/22/19 09:08 Dose: 100 mg Documented by: Heparin Sodium (Porcine) (Heparin Sodium) 5,000 units SUBCUT Q8H [facility] Last Admin: 12/22/19 10:22 Dose: 5,000 units Documented by: Lactated Ringer's (Ringers, Lactated) 1,000 mls @ 999 mls/hr IV .BOLUS ONE Stop: 12/18/19 17:00 Last Admin: 12/18/19 16:36 Dose: 999 mls/hr Documented by: Sodium Chloride (Normal Saline) 500 mls @ 999 mls/hr IV .BOLUS [place] Sodium Chloride (Normal Saline) 500 mls @ 125 mls/hr IV ASDIRECTED [facility] Potassium Chloride/Sodium Chloride (Normal Saline With 20 Meq Kcl) 1,000 mls @ 125 mls/hr IV ASDIRECTED [facility] Last Admin: 12/21/19 14:30 Dose: 125 mls/hr Documented by: Lorazepam (Ativan) 0.5 mg PO ONETIME ONE Stop: 12/18/19 17:56 Last Admin: 12/18/19 18:03 Dose: 0.5 mg Documented by: Methylprednisolone Sodium Succinate (Solu-Medrol) 40 mg IVPUSH ONETIME ONE Stop: 12/18/19 14:21 Last Admin: 12/18/19 14:32 Dose: 40 mg Documented by: Methylprednisolone Sodium Succinate (Solu-Medrol) 40 mg IVPUSH Q12H [facility] Last Admin: 12/20/19 08:06 Dose: 40 mg Documented by: Methylprednisolone Sodium Succinate (Solu-Medrol) 40 mg IVPUSH Q24H [facility] Last Admin: 12/20/19 13:50 Dose: Not Given Documented by: Methylprednisolone Sodium Succinate (Solu-Medrol) 40 mg IVPUSH Q24H [facility] Last Admin: 12/22/19 10:19 Dose: 40 mg Documented by: Metoprolol Tartrate (Lopressor) 25 mg PO BID [facility] Last Admin: 12/22/19 09:09 Dose: 25 mg Documented by: Pantoprazole Sodium (Protonix) 40 mg PO DAILY [facility] Last Admin: 12/22/19 09:09 Dose: 40 mg Documented by: Polyethylene Glycol (Miralax) 17 gm PO ONETIME ONE Stop: 12/21/19 12:50 Last Admin: 12/21/19 13:41 Dose: 17 gm Documented by: Potassium Chloride (Potassium Chloride) 40 meq PO ONETIME ONE Stop: 12/21/19 13:01 Last Admin: 12/21/19 13:41 Dose: Not Given Documented by: Sertraline HCl (Zoloft) 50 mg PO BEDTIME [facility] Last Admin: 12/21/19 21:30 Dose: 50 mg Documented by: Sodium Chloride (Saline Flush) 10 ml FLUSH ASDIRECTED PRN PRN Reason: Keep Vein Open Last Admin: 12/19/19 04:08 Dose: 10 ml Documented by: Sodium Chloride (Saline Flush) 2.5 ml FLUSH ASDIRECTED PRN PRN Reason: Keep Vein Open Last Admin: 12/20/19 07:59 Dose: 2.5 ml Documented by: - Plan Plan:: I have seen and evaluated the patient and agree with the residents note unless specified in my note
[2019-12-21] MEDS: Docusate Sodium 100 MG Cap PO SCH (16:53)
[2019-12-21] MEDS: Sertraline 50 MG Tab PO SCH (21:30)
[2019-12-22] MEDS: Heparin Sodium 5,000 Units/ML Vial SUBCUT SCH ×2 (00:59→10:22)
[2019-12-22] MEDS: Albuterol/Ipratropium 3.0-0.5 MG/3 ML Neb Soln NEB SCH (06:33)
[2019-12-22 07:39] LABS: CARBON DIOXIDE,CO2 29.2 mmol/L (21.0-32.0); POTASSIUM,K 4.1 mmol/L (3.5-5.1)
[2019-12-22] MEDS: Docusate Sodium 100 MG Cap PO SCH (09:08)
[2019-12-22] MEDS: amLODIPine 5 MG Tab PO SCH (09:08)
[2019-12-22] MEDS: Doxycycline 100 MG Cap PO SCH (09:08)
[2019-12-22] MEDS: Metoprolol Tartrate 25 MG Tab PO SCH (09:09)
[2019-12-22] MEDS: Pantoprazole 40 MG Tab.CR PO SCH (09:09)
[2019-12-22] MEDS: Budesonide/Formoterol 160-4.5 MCG/Puff 6 GM Inhaler INH SCH (09:21)
[2019-12-22] MEDS: methylPREDNISolone Sodium Succinate 40 MG/1 ML SDV IVPUSH SCH (10:19)
[2019-12-22 13:18] VITALS: BP 140/60; PULSE 85
--- NOTE | 2019-12-22 18:00 | PCM.DCSUM1 ---
<Talia May - Last Filed: 12/22/19 18:08> Discharge Summary - Hospital Course Brief History: There is a very pleasant 79-year-old female with a past medical history of COPD and hypertension presenting with shortness of breath. She arrives to the emergency department with her daughter. Daughter states that she has been sick with a cough for about a week. She reports gradually worsening shortness of breath over the past day or so which prompted them to come to the ER. Patient states that she has been feeling unwell. [facility] [place] [facility] but does not have any roommates and has no known sick contacts. No known COVID-19 contacts. She did use her albuterol inhaler x1 and her albuterol nebulizer x1 this morning prior to arrival without much relief. Here in the ER, her only complaint is shortness of breath. She denies any pain, particularly chest discomfort. Denies any fever or hemoptysis. No leg swelling, vomiting, diarrhea, or sick contacts. Diagnosis: Stroke: No - Discharge Data Discharge Date: 12/22/19 Discharge Disposition: Home, W Home Health Agency 06 Condition: Good - Referral to Home Health Date of Face to Face Encounter: 12/22/19 Reason for Homebound Status: They are unsteady when walking and a fall risk , needing to utilize a walker and a cane to ambulate safely. Primary Care Physician: PCP DR. Wiley Skilled Need: Physical Therapy: Strengthening due to weakness from recent hospitalization, deconditioning , gait instabilty and at high risk for falls. - Discharge Diagnosis/Problem(s) (1) Acute and chronic respiratory failure SNOMED Code(s): 75340330 ICD Code: J96.20 - ACUTE AND CHR RESP FAILURE, UNSP W HYPOXIA OR HYPERCAPNIA Status: Acute Qualifiers: Respiratory failure complication: hypercapnia Qualified Code(s): J96.22 - Acute and chronic respiratory failure with hypercapnia (2) NOEMÍ (acute kidney injury) SNOMED Code(s): 27690322, 53961508 ICD Code: N17.9 - ACUTE KIDNEY FAILURE, UNSPECIFIED Status: Acute (3) Hyponatremia SNOMED Code(s): 23119432 ICD Code: E87.1 - HYPO-OSMOLALITY AND HYPONATREMIA Status: Acute (4) NOEMÍ (acute kidney injury) SNOMED Code(s): 42768935, 44322344 ICD Code: N17.9 - ACUTE KIDNEY FAILURE, UNSPECIFIED Status: Acute (5) Hypertension SNOMED Code(s): 34895843 ICD Code: I10 - ESSENTIAL (PRIMARY) HYPERTENSION Status: Acute (6) COPD exacerbation SNOMED Code(s): 209854007 ICD Code: J44.1 - CHRONIC OBSTRUCTIVE PULMONARY DISEASE W (ACUTE) EXACERB ATION Status: Acute (7) Hypokalemia SNOMED Code(s): 69265539 ICD Code: E87.6 - HYPOKALEMIA Status: Acute (8) Elevated BUN SNOMED Code(s): 798037685 ICD Code: R79.9 - ABNORMAL FINDING OF BLOOD CHEMISTRY, UNSPECIFIED Status: Acute (9) Hypertension SNOMED Code(s): 22705715 ICD Code: I10 - ESSENTIAL (PRIMARY) HYPERTENSION Status: Acute (10) Constipation SNOMED Code(s): 95863743 ICD Code: K59.00 - CONSTIPATION, UNSPECIFIED Status: Acute (11) COPD (chronic obstructive pulmonary disease) SNOMED Code(s): 11439850 ICD Code: J44.9 - CHRONIC OBSTRUCTIVE PULMONARY DISEASE, UNSPECIFIED Status: Chronic Priority: Medium Qualifiers: COPD type: emphysema Emphysema type: unspecified Qualified Code(s): J43.9 - Emphysema, unspecified - Patient Summary/Data Consults: Consultations 12/20/19 13:53 Consult to Home Care [Consult to Home Health] [CONS] Routine 12/21/19 12:58 Consult to Physical Therapy [PT Evaluation and Treatment] [CONS] Routine Hospital Course: Pt was admitted with Acute hypercapnic respiratory failure secondary to COPD exacerbation. Was treated with supplemental oxygen, appropriately weaned down to room air. Additional treatments included the use of Tesslon pearls, DuoNeb treatments, Solumadral, and doxycycline antibiotics. PT and Home Health were consulted to ensure that patient does not continue to decondition post discharge. Additional treatments included stool softeners for chronic constipation, electrolytes were repleted. Pt was well this morning, ready for discharge. Sent home with appropriate scripts and is to follow up closely with PCO post discharge. - Discharge Plan *PRESCRIPTION DRUG MONITORING PROGRAM REVIEWED*: No *COPY OF PRESCRIPTION DRUG MONITORING REPORT IN PATIENT CHRISTIAN: No Prescriptions/Med Rec: Docusate Sodium [Colace] 100 mg PO DAILY #30 cap predniSONE [Prednisone] 40 mg PO DAILY 3 Days #6 tablet Benzonatate [Tessalon Perle] 100 mg PO Q6H #40 capsule Doxycycline [Vibramycin] 100 mg PO BID #6 cap Home Medications: Home Meds Metoprolol Tartrate 25 mg PO BID 02/18/15 [History] Sertraline [Zoloft] 50 mg PO BEDTIME 02/18/15 [History] Albuterol [Ventolin HFA] 1 puff INH BID 12/18/19 [History] Budesonide/Formoterol [Symbicort 160-4.5 MCG] 1 inh INH Q12HR 12/18/19 [History] Codeine Phosphate/Guaifenesin [Guaifen-Codeine 200-20 mg/10Ml] 5 ml PO BEDTIME PRN 12/18/19 [History] Ipratropium/Albuterol Sulfate [Iprat-Albut 0.5-3(2.5) MG/3 ML] 3 ml IH Q6HR PRN 12/18/19 [History] amLODIPine [Norvasc] 5 mg PO DAILY 12/18/19 [History] Albuterol/Ipratropium [DuoNeb 3.0-0.5 MG/3 ML] 3 ml NEB Q6HRRT neb 12/22/19 [Rx] Benzonatate [Tessalon Perle] 100 mg PO Q6H #40 capsule 12/22/19 [Rx] Docusate Sodium [Colace] 100 mg PO DAILY #30 cap 12/22/19 [Rx] Doxycycline [Vibramycin] 100 mg PO BID #6 cap 12/22/19 [Rx] Doxycycline [Vibramycin] 100 mg PO Q12HR cap 12/22/19 [Rx] predniSONE [Prednisone] 40 mg PO DAILY 3 Days #6 tablet 12/22/19 [Rx] Oxygen Therapy Mode: Room Air Patient Handouts: Chronic Obstructive Pulmonary Disease Exacerbation, [id number], Doxycycline tablets or capsules, Prednisone tablets, Benzonatate capsules Referrals: [facility] [Outside] Erasmo Wiley MD [Physician] - 12/28/19 2:00 pm - Discharge Summary/Plan Comment DC Time >30 min.: No - Patient Data Vitals - Most Recent: Last Vital Signs Temp 98.9 F 12/22/19 12:00 Pulse 85 12/22/19 12:00 Resp 20 12/22/19 13:00 BP 140/60 12/22/19 12:00 Pulse Ox 91 L 12/22/19 13:00 Orthostatic Blood Pressure [ 102/54 Standing] Orthostatic Blood Pressure [ 134/71 Sitting] Orthostatic Blood Pressure [ 159/64 Supine] Weight - Most Recent: 40.4 kg I&O - Last 24 hours: Intake & Output 12/22/19 12/22/19 12/22/19 06:59 14:59 22:59 Intake Total 550 Output Total 900 Balance -350 Lab Results - Last 24 hrs: Laboratory Results - last 24 hr 12/22/19 12/22/19 Range/Units 06:20 06:20 WBC 8.80 (4.0-11.0) K/uL RBC 4.45 (4.30-5.90) M/uL Hgb 12.7 (12.0-16.0) g/dL Hct 40.2 (36.0-46.0) % MCV 90.3 (80.0-98.0) fL MCH 28.5 (27.0-32.0) pg MCHC 31.6 (31.0-37.0) g/dL RDW Std Deviation 47.9 (28.0-62.0) fl RDW Coeff of Kiet 14 (11.0-15.0) % Plt Count 226 (150-400) K/uL MPV 10.10 (7.40-12.00) fL Neut % (Auto) 72.1 (48.0-80.0) % Lymph % (Auto) 19.2 (16.0-40.0) % Barry % (Auto) 8.3 (0.0-15.0) % Eos % (Auto) 0.3 (0.0-7.0) % Baso % (Auto) 0.1 (0.0-1.5) % Neut # (Auto) 6.3 H (1.4-5.7) K/uL Lymph # (Auto) 1.7 (0.6-2.4) K/uL Barry # (Auto) 0.7 (0.0-0.8) K/uL Eos # (Auto) 0.0 (0.0-0.7) K/uL Baso # (Auto) 0.0 (0.0-0.1) K/uL Nucleated RBC % 0.0 /100WBC Nucleated RBCs # 0 K/uL Sodium 135 L (136-145) mmol/L Potassium 4.1 (3.5-5.1) mmol/L Chloride 99 (98-107) mmol/L Carbon Dioxide 29.2 (21.0-32.0) mmol/L BUN 24 H (7.0-18.0) mg/dL Creatinine 1.0 (0.6-1.0) mg/dL Est Cr Clr Drug Dosing 30.05 mL/min Estimated GFR (MDRD) 53.8 ml/min Glucose 78 (74-106) mg/dL Calcium 9.0 (8.5-10.1) mg/dL Total Bilirubin 0.4 (0.2-1.0) mg/dL AST 18 (15-37) IU/L ALT 21 (14-63) IU/L Alkaline Phosphatase 65 (46-116) U/L Total Protein 5.8 L (6.4-8.2) g/dL Albumin 3.0 L (3.4-5.0) g/dL Globulin 2.8 (2.6-4.0) g/dL Albumin/Globulin Ratio 1.1 (0.9-1.6) ZACK Results - Last 24 hrs: Microbiology 12/18/19 14:28 Aerobic Blood Culture - Preliminary Blood - Venous - Lab Draw NO GROWTH AFTER 4 DAYS Anaerobic Blood Culture - Preliminary NO GROWTH AFTER 4 DAYS 12/18/19 13:59 Aerobic Blood Culture - Preliminary Blood - Venous NO GROWTH AFTER 4 DAYS Anaerobic Blood Culture - Preliminary NO GROWTH AFTER 4 DAYS Med Orders - Current: Current Medications Discontinued Medications Acetaminophen (Tylenol) 650 mg PO Q4H PRN PRN Reason: Pain (Mild 1-3)/fever Last Admin: 12/21/19 04:44 Dose: 650 mg Documented by: Albuterol (Proventil Neb Soln) Confirm Administered Dose 5 mg .ROUTE .STK-MED ONE Stop: 12/18/19 14:09 Last Admin: 12/18/19 14:33 Dose: 5 mg Documented by: Albuterol (Proventil Neb Soln) 10 mg NEB ONETIME ONE Stop: 12/18/19 14:56 Last Admin: 12/18/19 15:46 Dose: Not Given Documented by: Albuterol (Proventil Neb Soln) Confirm Administered Dose 5 mg .ROUTE .STK-MED ONE Stop: 12/18/19 15:37 Last Admin: 12/18/19 15:46 Dose: Not Given Documented by: Albuterol (Proventil Neb Soln) 5 mg NEB ONETIME ONE Stop: 12/18/19 15:44 Last Admin: 12/18/19 15:45 Dose: 5 mg Documented by: Albuterol (Proventil) 5 mg NEB QIDRT [place] Albuterol (Proventil) 5 mg NEB NOW STA Stop: 12/18/19 15:49 Last Admin: 12/18/19 15:49 Dose: 5 mg Documented by: Albuterol/Ipratropium (Duoneb 3.0-0.5 Mg/3 Ml) Confirm Administered Dose 6 ml .ROUTE .STK-MED ONE Stop: 12/18/19 14:09 Last Admin: 12/18/19 14:33 Dose: 6 ml Documented by: Albuterol/Ipratropium (Duoneb 3.0-0.5 Mg/3 Ml) 9 ml NEB ONETIME ONE Stop: 12/18/19 14:56 Last Admin: 12/18/19 16:19 Dose: Not Given Documented by: Albuterol/Ipratropium (Duoneb 3.0-0.5 Mg/3 Ml) Confirm Administered Dose 6 ml .ROUTE .STK-MED ONE Stop: 12/18/19 15:38 Last Admin: 12/18/19 15:45 Dose: Not Given Documented by: Albuterol/Ipratropium (Duoneb 3.0-0.5 Mg/3 Ml) 6 ml NEB ONETIME ONE Stop: 12/18/19 15:43 Last Admin: 12/18/19 15:45 Dose: 6 ml Documented by: Albuterol/Ipratropium (Duoneb 3.0-0.5 Mg/3 Ml) 3 ml NEB Q4HRRT [place] Last Admin: 12/18/19 18:03 Dose: Not Given Documented by: Albuterol/Ipratropium (Duoneb 3.0-0.5 Mg/3 Ml) 3 ml NEB Q6H PRN PRN Reason: Dyspnea Last Admin: 12/19/19 04:20 Dose: 3 ml Documented by: Albuterol/Ipratropium (Duoneb 3.0-0.5 Mg/3 Ml) 3 ml NEB Q6HRRT [facility] Last Admin: 12/22/19 06:33 Dose: 3 ml Documented by: Amlodipine Besylate (Norvasc) 10 mg PO ONETIME ONE Stop: 12/18/19 14:54 Last Admin: 12/18/19 15:44 Dose: Not Given Documented by: Amlodipine Besylate (Norvasc) 5 mg PO DAILY [facility] Last Admin: 12/22/19 09:08 Dose: 5 mg Documented by: Benzonatate (Tessalon Perles) 100 mg PO QID PRN PRN Reason: Cough Last Admin: 12/21/19 00:13 Dose: 100 mg Documented by: Budesonide/Formoterol Fumarate (Symbicort 160-4.5 Mcg) 0 gm INH Q12HR [facility] Last Admin: 12/22/19 09:21 Dose: 1 inhalation Documented by: Calcium Carbonate/Glycine (Tums) 500 mg PO ONETIME ONE Stop: 12/19/19 11:31 Last Admin: 12/19/19 11:35 Dose: 500 mg Documented by: Diltiazem HCl (Diltiazem) 10 mg IVPUSH Q3H PRN PRN Reason: for HR >120 Docusate Sodium (Colace) 100 mg PO DAILY [facility] Last Admin: 12/22/19 09:08 Dose: 100 mg Documented by: Doxycycline Hyclate (Vibramycin) 100 mg PO Q12HR [facility] Last Admin: 12/22/19 09:08 Dose: 100 mg Documented by: Heparin Sodium (Porcine) (Heparin Sodium) 5,000 units SUBCUT Q8H [facility] Last Admin: 12/22/19 10:22 Dose: 5,000 units Documented by: Lactated Ringer's (Ringers, Lactated) 1,000 mls @ 999 mls/hr IV .BOLUS ONE Stop: 12/18/19 17:00 Last Admin: 12/18/19 16:36 Dose: 999 mls/hr Documented by: Sodium Chloride (Normal Saline) 500 mls @ 999 mls/hr IV .BOLUS [facility] Sodium Chloride (Normal Saline) 500 mls @ 125 mls/hr IV ASDIRECTED [facility] Potassium Chloride/Sodium Chloride (Normal Saline With 20 Meq Kcl) 1,000 mls @ 125 mls/hr IV ASDIRECTED [facility] Last Admin: 12/21/19 14:30 Dose: 125 mls/hr Documented by: Lorazepam (Ativan) 0.5 mg PO ONETIME ONE Stop: 12/18/19 17:56 Last Admin: 12/18/19 18:03 Dose: 0.5 mg Documented by: Methylprednisolone Sodium Succinate (Solu-Medrol) 40 mg IVPUSH ONETIME ONE Stop: 12/18/19 14:21 Last Admin: 12/18/19 14:32 Dose: 40 mg Documented by: Methylprednisolone Sodium Succinate (Solu-Medrol) 40 mg IVPUSH Q12H [facility] Last Admin: 12/20/19 08:06 Dose: 40 mg Documented by: Methylprednisolone Sodium Succinate (Solu-Medrol) 40 mg IVPUSH Q24H [facility] Last Admin: 12/20/19 13:50 Dose: Not Given Documented by: Methylprednisolone Sodium Succinate (Solu-Medrol) 40 mg IVPUSH Q24H [facility] Last Admin: 12/22/19 10:19 Dose: 40 mg Documented by: Metoprolol Tartrate (Lopressor) 25 mg PO BID [facility] Last Admin: 12/22/19 09:09 Dose: 25 mg Documented by: Pantoprazole Sodium (Protonix) 40 mg PO DAILY [facility] Last Admin: 12/22/19 09:09 Dose: 40 mg Documented by: Polyethylene Glycol (Miralax) 17 gm PO ONETIME ONE Stop: 12/21/19 12:50 Last Admin: 12/21/19 13:41 Dose: 17 gm Documented by: Potassium Chloride (Potassium Chloride) 40 meq PO ONETIME ONE Stop: 12/21/19 13:01 Last Admin: 12/21/19 13:41 Dose: Not Given Documented by: Sertraline HCl (Zoloft) 50 mg PO BEDTIME [facility] Last Admin: 12/21/19 21:30 Dose: 50 mg Documented by: Sodium Chloride (Saline Flush) 10 ml FLUSH ASDIRECTED PRN PRN Reason: Keep Vein Open Last Admin: 12/19/19 04:08 Dose: 10 ml Documented by: Sodium Chloride (Saline Flush) 2.5 ml FLUSH ASDIRECTED PRN PRN Reason: Keep Vein Open Last Admin: 12/20/19 07:59 Dose: 2.5 ml Documented by: <Mally Ding - Last Filed: 12/23/19 13:16> Discharge Summary - Hospital Course Free Text/Narrative:: I have seen and evaluated the patient and agree with the residents note unless specified in my note - Referral to Home Health Primary Care Physician: PCP None - Patient Summary/Data Consults: Consultations 12/20/19 13:53 Consult to Home Care [Consult to Home Health] [CONS] Routine 12/21/19 12:58 Consult to Physical Therapy [PT Evaluation and Treatment] [CONS] Routine - Patient Data Vitals - Most Recent: Last Vital Signs Temp 37.2 C 12/22/19 12:00 Pulse 85 12/22/19 12:00 Resp 20 12/22/19 13:00 BP 140/60 12/22/19 12:00 Pulse Ox 91 L 12/22/19 13:00 Orthostatic Blood Pressure [ 102/54 Standing] Orthostatic Blood Pressure [ 134/71 Sitting] Orthostatic Blood Pressure [ 159/64 Supine] ZACK Results - Last 24 hrs: Microbiology 12/18/19 14:28 Aerobic Blood Culture - Preliminary Blood - Venous - Lab Draw NO GROWTH AFTER 4 DAYS Anaerobic Blood Culture - Preliminary NO GROWTH AFTER 4 DAYS 12/18/19 13:59 Aerobic Blood Culture - Preliminary Blood - Venous NO GROWTH AFTER 4 DAYS Anaerobic Blood Culture - Preliminary NO GROWTH AFTER 4 DAYS Med Orders - Current: Current Medications Discontinued Medications Acetaminophen (Tylenol) 650 mg PO Q4H PRN PRN Reason: Pain (Mild 1-3)/fever Last Admin: 12/21/19 04:44 Dose: 650 mg Documented by: Albuterol (Proventil Neb Soln) Confirm Administered Dose 5 mg .ROUTE .STK-MED ONE Stop: 12/18/19 14:09 Last Admin: 12/18/19 14:33 Dose: 5 mg Documented by: Albuterol (Proventil Neb Soln) 10 mg NEB ONETIME ONE Stop: 12/18/19 14:56 Last Admin: 12/18/19 15:46 Dose: Not Given Documented by: Albuterol (Proventil Neb Soln) Confirm Administered Dose 5 mg .ROUTE .STK-MED ONE Stop: 12/18/19 15:37 Last Admin: 12/18/19 15:46 Dose: Not Given Documented by: Albuterol (Proventil Neb Soln) 5 mg NEB ONETIME ONE Stop: 12/18/19 15:44 Last Admin: 12/18/19 15:45 Dose: 5 mg Documented by: Albuterol (Proventil) 5 mg NEB QIDRT [place] Albuterol (Proventil) 5 mg NEB NOW STA Stop: 12/18/19 15:49 Last Admin: 12/18/19 15:49 Dose: 5 mg Documented by: Albuterol/Ipratropium (Duoneb 3.0-0.5 Mg/3 Ml) Confirm Administered Dose 6 ml .ROUTE .STK-MED ONE Stop: 12/18/19 14:09 Last Admin: 12/18/19 14:33 Dose: 6 ml Documented by: Albuterol/Ipratropium (Duoneb 3.0-0.5 Mg/3 Ml) 9 ml NEB ONETIME ONE Stop: 12/18/19 14:56 Last Admin: 12/18/19 16:19 Dose: Not Given Documented by: Albuterol/Ipratropium (Duoneb 3.0-0.5 Mg/3 Ml) Confirm Administered Dose 6 ml .ROUTE .STK-MED ONE Stop: 12/18/19 15:38 Last Admin: 12/18/19 15:45 Dose: Not Given Documented by: Albuterol/Ipratropium (Duoneb 3.0-0.5 Mg/3 Ml) 6 ml NEB ONETIME ONE Stop: 12/18/19 15:43 Last Admin: 12/18/19 15:45 Dose: 6 ml Documented by: Albuterol/Ipratropium (Duoneb 3.0-0.5 Mg/3 Ml) 3 ml NEB Q4HRRT [place] Last Admin: 12/18/19 18:03 Dose: Not Given Documented by: Albuterol/Ipratropium (Duoneb 3.0-0.5 Mg/3 Ml) 3 ml NEB Q6H PRN PRN Reason: Dyspnea Last Admin: 12/19/19 04:20 Dose: 3 ml Documented by: Albuterol/Ipratropium (Duoneb 3.0-0.5 Mg/3 Ml) 3 ml NEB Q6HRRT [place] Last Admin: 12/22/19 06:33 Dose: 3 ml Documented by: Amlodipine Besylate (Norvasc) 10 mg PO ONETIME ONE Stop: 12/18/19 14:54 Last Admin: 12/18/19 15:44 Dose: Not Given Documented by: Amlodipine Besylate (Norvasc) 5 mg PO DAILY [facility] Last Admin: 12/22/19 09:08 Dose: 5 mg Documented by: Benzonatate (Tessalon Perles) 100 mg PO QID PRN PRN Reason: Cough Last Admin: 12/21/19 00:13 Dose: 100 mg Documented by: Budesonide/Formoterol Fumarate (Symbicort 160-4.5 Mcg) 0 gm INH Q12HR [facility] Last Admin: 12/22/19 09:21 Dose: 1 inhalation Documented by: Calcium Carbonate/Glycine (Tums) 500 mg PO ONETIME ONE Stop: 12/19/19 11:31 Last Admin: 12/19/19 11:35 Dose: 500 mg Documented by: Diltiazem HCl (Diltiazem) 10 mg IVPUSH Q3H PRN PRN Reason: for HR >120 Docusate Sodium (Colace) 100 mg PO DAILY [facility] Last Admin: 12/22/19 09:08 Dose: 100 mg Documented by: Doxycycline Hyclate (Vibramycin) 100 mg PO Q12HR [facility] Last Admin: 12/22/19 09:08 Dose: 100 mg Documented by: Heparin Sodium (Porcine) (Heparin Sodium) 5,000 units SUBCUT Q8H [facility] Last Admin: 12/22/19 10:22 Dose: 5,000 units Documented by: Lactated Ringer's (Ringers, Lactated) 1,000 mls @ 999 mls/hr IV .BOLUS ONE Stop: 12/18/19 17:00 Last Admin: 12/18/19 16:36 Dose: 999 mls/hr Documented by: Sodium Chloride (Normal Saline) 500 mls @ 999 mls/hr IV .BOLUS [facility] Sodium Chloride (Normal Saline) 500 mls @ 125 mls/hr IV ASDIRECTED [facility] Potassium Chloride/Sodium Chloride (Normal Saline With 20 Meq Kcl) 1,000 mls @ 125 mls/hr IV ASDIRECTED [facility] Last Admin: 12/21/19 14:30 Dose: 125 mls/hr Documented by: Lorazepam (Ativan) 0.5 mg PO ONETIME ONE Stop: 12/18/19 17:56 Last Admin: 12/18/19 18:03 Dose: 0.5 mg Documented by: Methylprednisolone Sodium Succinate (Solu-Medrol) 40 mg IVPUSH ONETIME ONE Stop: 12/18/19 14:21 Last Admin: 12/18/19 14:32 Dose: 40 mg Documented by: Methylprednisolone Sodium Succinate (Solu-Medrol) 40 mg IVPUSH Q12H [facility] Last Admin: 12/20/19 08:06 Dose: 40 mg Documented by: Methylprednisolone Sodium Succinate (Solu-Medrol) 40 mg IVPUSH Q24H [facility] Last Admin: 12/20/19 13:50 Dose: Not Given Documented by: Methylprednisolone Sodium Succinate (Solu-Medrol) 40 mg IVPUSH Q24H [facility] Last Admin: 12/22/19 10:19 Dose: 40 mg Documented by: Metoprolol Tartrate (Lopressor) 25 mg PO BID [facility] Last Admin: 12/22/19 09:09 Dose: 25 mg Documented by: Pantoprazole Sodium (Protonix) 40 mg PO DAILY [facility] Last Admin: 12/22/19 09:09 Dose: 40 mg Documented by: Polyethylene Glycol (Miralax) 17 gm PO ONETIME ONE Stop: 12/21/19 12:50 Last Admin: 12/21/19 13:41 Dose: 17 gm Documented by: Potassium Chloride (Potassium Chloride) 40 meq PO ONETIME ONE Stop: 12/21/19 13:01 Last Admin: 12/21/19 13:41 Dose: Not Given Documented by: Sertraline HCl (Zoloft) 50 mg PO BEDTIME [facility] Last Admin: 12/21/19 21:30 Dose: 50 mg Documented by: Sodium Chloride (Saline Flush) 10 ml FLUSH ASDIRECTED PRN PRN Reason: Keep Vein Open Last Admin: 12/19/19 04:08 Dose: 10 ml Documented by: Sodium Chloride (Saline Flush) 2.5 ml FLUSH ASDIRECTED PRN PRN Reason: Keep Vein Open Last Admin: 12/20/19 07:59 Dose: 2.5 ml Documented by:
== END 2019-12-22 13:30 | disposition home health service (06) | DRG 189 ==
LOC: MW.ED 13:48 → MW.MS 14:53 → MW.ICU 17:28 → MW.MS 12-19 18:00
PROVIDERS: ADMIT Internal Medicine; ATTEND Internal Medicine
PROC: 5A09457 Assistance with Respiratory Ventilation, 24-96 Consecutive Hours, Continuous Positive Airway Pressure (ICD-10-PCS; principal; 2019-12-18)
DX: J96.22 Acute and chronic respiratory failure with hypercapnia (principal); N17.9 Acute kidney failure, unspecified; E87.1 Hypo-osmolality and hyponatremia; J96.21 Acute and chronic respiratory failure with hypoxia; I10 Essential (primary) hypertension; E87.6 Hypokalemia; R79.9 Abnormal finding of blood chemistry, unspecified; K59.00 Constipation, unspecified; J43.9 Emphysema, unspecified; F41.9 Anxiety disorder, unspecified; F32.9 Major depressive disorder, single episode, unspecified; Z96.649 Presence of unspecified artificial hip joint; Z20.828 Contact with and (suspected) exposure to other viral communicable diseases; Z79.899 Other long term (current) drug therapy; Z86.73 Personal history of transient ischemic attack (TIA), and cerebral infarction without residual deficits; E87.8 Other disorders of electrolyte and fluid balance, not elsewhere classified; I48.91 Unspecified atrial fibrillation
CPT/HCPCS: 36415; 71045; 80053; 82803; 83880; 84484; 85025; 87040 ×2; 87804 ×2; 93005; 96374; 99291; J2920; U0002; 83605; 93010; 94640; 94660; 97161-GP; 99222; 99231; 99232; 99238; 99284; A9270-GY; J1644; J3480; J7120; J7620-GY

== ENCOUNTER 2020-01-05 10:19 | Inpatient (IN) | payer MEDICARE, BC ==
[2020-01-05] MEDS ORDERED: Sodium Chloride 0.9% 10 ML Syringe FLUSH PRN (10:34)
[2020-01-05] MEDS ORDERED: Albuterol/Ipratropium 3.0-0.5 MG/3 ML Neb Soln NEB ONE ×2 (10:46)
[2020-01-05] MEDS ORDERED: methylPREDNISolone Sodium Succinate 125 MG/2 ML SDV IVPUSH ONE (10:46)
--- NOTE | 2020-01-05 11:15 | PCM.SN.2 ---
#1 Interpretation EKG Date: 01/05/20 Time: 10:27 Rhythm: NSR Rate (Beats/Min): 72 [place]: Normal P-Wave: Present QRS: Normal ST-T: Normal QT: Normal TX/PQ Interval: 208 EKG Interpretation Comments: poor baseline obscures interpretation; no overt ischemic changes
--- NOTE | 2020-01-05 11:19 | EDM.PDOC ---
<Talia May - Last Filed: 01/05/20 16:57> ED HPI GENERAL MEDICAL PROBLEM - General Chief Complaint: Respiratory Problem Stated Complaint: SHORTNESS OF BREATHE Time Seen by Provider: 01/05/20 10:22 Source of Information: Reports: Patient History Limitations: Reports: No Limitations - History of Present Illness Onset: Gradual Duration: Getting Worse Location: Reports: Chest Quality: Reports: Ache Severity: Mild Improves with: Reports: None Worsens with: Reports: None Associated Symptoms: Reports: No Other Symptoms - Related Data Allergies Allergy/AdvReac Type Severity Reaction Status Date / Time No Known Allergies Allergy Verified 01/05/20 19:15 Home Meds: Home Meds Metoprolol Tartrate 25 mg PO BID 02/18/15 [History] Sertraline [Zoloft] 50 mg PO BEDTIME 02/18/15 [History] Albuterol [Ventolin HFA] 1 puff INH BID 12/18/19 [History] Budesonide/Formoterol [Symbicort 160-4.5 MCG] 1 inh INH Q12HR 12/18/19 [History] Codeine Phosphate/Guaifenesin [Guaifen-Codeine 200-20 mg/10Ml] 5 ml PO BEDTIME PRN 12/18/19 [History] Ipratropium/Albuterol Sulfate [Iprat-Albut 0.5-3(2.5) MG/3 ML] 3 ml IH Q6HR PRN 12/18/19 [History] amLODIPine [Norvasc] 5 mg PO DAILY 12/18/19 [History] Albuterol/Ipratropium [DuoNeb 3.0-0.5 MG/3 ML] 3 ml NEB Q6HRRT neb 12/22/19 [Rx] Benzonatate [Tessalon Perle] 100 mg PO Q6H #40 capsule 12/22/19 [Rx] Docusate Sodium [Colace] 100 mg PO DAILY #30 cap 12/22/19 [Rx] ED ROS GENERAL - Review of Systems Constitutional: Reports: No Symptoms HEENT: Reports: No Symptoms Respiratory: Reports: Shortness of Breath, Cough, Sputum Cardiovascular: Reports: No Symptoms Endocrine: Reports: No Symptoms GI/Abdominal: Reports: No Symptoms : Reports: No Symptoms Musculoskeletal: Reports: No Symptoms Skin: Reports: No Symptoms Neurological: Reports: No Symptoms Psychiatric: Reports: No Symptoms Hematologic/Lymphatic: Reports: No Symptoms Immunologic: Reports: No Symptoms ED EXAM, GENERAL - Physical Exam Exam Limited By: Other (hard of hearing) General Appearance: Alert, No Apparent Distress Ear Exam: Bilateral Ear: Auricle Normal, Canal Normal, TM normal Head: Atraumatic, Normocephalic Neck: Normal Inspection, Supple, Non-Tender, Full Range of Motion. No: Lymphadenopathy (L), Lymphadenopathy (R), Thyromegaly Respiratory/Chest: No Accessory Muscle Use, Crackles (through out, more prominent left upper lobe). No: Wheezing, Stridor, Retractions, Splinting, Prolonged Expiration Cardiovascular: Normal Peripheral Pulses, Regular Rate, Rhythm, No Edema, No JVD Peripheral Pulses: 2+: Radial (L), Radial (R), Dorsalis Pedis (L), Dorsalis Pedis (R) GI/Abdominal: Normal Bowel Sounds, Soft, Non-Tender, No Distention Extremities: Normal Inspection, Normal Range of Motion, No Pedal Edema, Normal Capillary Refill. No: Joint Swelling Neurological: Alert, Oriented, CN II-XII Intact, Normal Cognition, Normal Reflexes, No Motor/Sensory Deficits Psychiatric: Normal Affect, Normal Mood Skin Exam: Warm, Dry, Intact, Normal Color, No Rash Lymphatic: No Adenopathy Departure - Departure Disposition: Refer to Observation Clinical Impression: COPD exacerbation, Lung infiltrate Urinary tract infection Qualifiers: Urinary tract infection type: acute cystitis Hematuria presence: without hematuria Qualified Code(s): N30.00 - Acute cystitis without hematuria - Discharge Information - Problem List & Annotations (1) Pneumonia SNOMED Code(s): 613877933 Code(s): J18.9 - PNEUMONIA, UNSPECIFIED ORGANISM Status: Acute Current Visit: Yes (2) Orthostatic hypotension SNOMED Code(s): 12732601 Code(s): I95.1 - ORTHOSTATIC HYPOTENSION Status: Chronic Current Visit: No (3) Elevated BUN SNOMED Code(s): 106768636 Code(s): R79.9 - ABNORMAL FINDING OF BLOOD CHEMISTRY, UNSPECIFIED Status: Acute Current Visit: No (4) Hypertension SNOMED Code(s): 36381446 Code(s): I10 - ESSENTIAL (PRIMARY) HYPERTENSION Status: Chronic Current Visit: No (5) Urinary tract infection SNOMED Code(s): 46730148 Code(s): N39.0 - URINARY TRACT INFECTION, SITE NOT SPECIFIED Status: Acute Current Visit: Yes Qualifiers: Urinary tract infection type: acute cystitis Hematuria presence: without hematuria Qualified Code(s): N30.00 - Acute cystitis without hematuria - Problem List Review Problem List Initiated/Reviewed/Updated: Yes - Assessment/Plan Plan: 79 y/o F admitted for pneumonia with worsening cough and s.o.b: 1.Pneumonia: no wbc count, afebrile, no changes from prev on CXR, new found infiltrates on CT-Angio. Recent admission-discharge was Dec 19. Therefore, treat for HAP, prev treated with doxy, will start on Vanc and Zosyn. Narrow abx based on sputum culture. 2. UTI: Subacute cystitis: asymptomatic, no hematuria, + nitrates and Esterase, will treat based on UC. 3. Mild Hyponatremia: continue to monitor with morning labs. 4. Mild Hypochloremia: continue to monitor with morning labs. 5. Elevated BUN: continue to monitor with morning labs. 6. PMHx: HTN, COPD, Orthostatic Hypotension- resume home medications admit to medsurg, dvt ppx lovenox 40/ scd's, GI ppx pantoprazole 40, activity up with assistance, HH diet <Violet Rubin - Last Filed: 01/06/20 20:17> ED HPI GENERAL MEDICAL PROBLEM - General Source of Information: Reports: Patient History Limitations: Reports: No Limitations - History of Present Illness INITIAL COMMENTS - FREE TEXT/NARRATIVE: HISTORY AND PHYSICAL: History of present illness: Patient is a 79-year-old female, with a history of COPD and hypertension, who presents to the ED today with concern of shortness of breath. Patient states that when she woke up this morning her shortness of breath was more significant and has improved slightly since being here but she states that she does feel short of breath. Patient states that she was seen on 12/17 and was admitted for shortness of breath and states at that time her shortness of breath is worse than it is today. Patient states that she does have a cough that is worse today and the consistent shortness of breath. Patient states that she is coughing up green mucus. Patient states that following discharge from the hospital she was feeling better for approximately 3 to 4 days but then back began feeling more short of breath again. Patient states that she has been using her at home inhalers without relief of her symptoms. Patient denies fever, chills, chest pain, shortness of breath, or cough. Denies headache, neck stiff ness, change in vision, syncope, or near syncope. Denies nausea, vomiting, abdominal pain, diarrhea, constipation, or dysuria. Has not noted any blood in urine or stool. Patient has been eating and drinking appropriately. Review of systems: As per history of present illness and below otherwise all systems reviewed and negative. Past medical history: As per history of present illness and as reviewed below otherwise noncontributory. Surgical history: As per history of present illness and as reviewed below otherwise noncontributory. Social history: See social history for further information Family history: As per history of present illness and as reviewed below otherwise noncontributory. Physical exam: General: Patient is alert, oriented, and in no acute distress. Patient sitting comfortably on exam table, tachypneic but speaking full sentences without breathlessness. O2 on RA 90s-95%. HEENT: Atraumatic, normocephalic, pupils equal and reactive bilaterally, negative for conjunctival pallor or scleral icterus, mucous membranes moist, TMs normal bilaterally, throat clear, neck supple, nontender, trachea midline. No drooling or trismus noted. No meningeal signs. No hot potato voice noted. Lungs: Wheezing to auscultation, breath sounds equal bilaterally, chest nontender. Tachypneic but speaking full sentences. Productive cough on exam. Heart: S1S2, regular rate and rhythm without overt murmur Abdomen: Soft, nondistended, nontender. Negative for masses or hepatosplenomegaly. Negative for costovertebral tenderness. Pelvis: Stable nontender. Genitourinary: Deferred. Rectal: Deferred. Skin: Intact, warm, dry. No lesions or rashes noted. Extremities: Atraumatic, negative for cords or calf pain. Neurovascular unremarkable. Neuro: Awake, alert, oriented. Cranial nerves II through XII unremarkable. Cerebellum unremarkable. Motor and sensory unremarkable throughout. Exam nonfocal. Notes: Tachypnea does improve and no longer tachypneic after duoneb given. Patient remains stable throughout course in ED. Dr. Ding consulted on patient and will admit to observation on telemetry. Voices understanding and is agreeable to plan of care. Denies any further questions or concerns at this time. Diagnostics: CBC, CMP, UA, EKG, CXR, Trop, Ddimer, CXR, COVID19, BNP, VBG Therapeutics: Duoneb, Solumedrol, Rocephin, NS Impression: COPD exacerbation Lung infiltrate Urinary tract infection Plan: Admit to observation of Dr. Ding on telemetry Definitive disposition and diagnosis as appropriate pending reevaluation and review of above. Past Medical History Cardiovascular History: Reports: Hypertension Respiratory History: Reports: COPD Other Respiratory History: emphysema PR[employer] RESPONSIBILITY LIAISON History: Reports: Psychiatric History: Reports: Anxiety, Depression - Infectious Disease History Infectious Disease History: Reports: Chicken Pox, Shingles - Past Surgical History Musculoskeletal Surgical History: Reports: Hip Replacement, Other (See Below) Social & Family History - Family History Family Medical History: No Pertinent Family History Cardiac: Reports: Hypertension Respiratory: Reports: COPD OBGYN: Reports: Endocrine/Metabolic: Reports: Diabetes, type II - Tobacco Use Tobacco Use Status *Q: Never Tobacco User - Caffeine Use Caffeine Use: Reports: Coffee - Recreational Drug Use Recreational Drug Use: No ED ROS GENERAL - Review of Systems Review Of Systems: Comprehensive ROS is negative, except as noted in HPI. ED EXAM, GENERAL - Physical Exam Exam: See Below (see dictation) Course - Vital Signs Last Recorded V/S: Last Vital Signs Temp 98.7 F 01/06/20 16:00 Pulse 80 01/06/20 16:00 Resp 18 01/06/20 16:00 BP 179/67 H 01/06/20 16:00 Pulse Ox 93 L 01/06/20 16:00 - Orders/Labs/Meds Orders: Active Orders 24 hr Category Date Time Status CBC WITH AUTO DIFF [HEME] AM Lab 01/07/20 05:11 Ordered CBC WITH AUTO DIFF [HEME] AM Lab 01/08/20 05:11 Ordered CBC WITH AUTO DIFF [HEME] AM Lab 01/09/20 05:11 Ordered COMPREHENSIVE METABOLIC PN,CMP [CHEM] AM Lab 01/07/20 05:11 Ordered COMPREHENSIVE METABOLIC PN,CMP [CHEM] AM Lab 01/08/20 05:11 Ordered COMPREHENSIVE METABOLIC PN,CMP [CHEM] AM Lab 01/09/20 05:11 Ordered CULTURE SPUTUM + SMEAR [RM] Stat Lab 01/05/20 19:30 Results VANCOMYCIN TROUGH [CHEM] Timed Lab 01/08/20 18:00 Ordered Docusate Sodium [Colace] Med 01/06/20 09:00 Active 100 mg PO DAILY Enoxaparin [Lovenox] Med 01/06/20 18:00 Active 30 mg SUBCUT Q24H Metoprolol Tartrate [Lopressor] Med 01/05/20 21:00 Active 25 mg PO BID Pantoprazole [ProTONIX] Med 01/06/20 09:00 Active 40 mg PO DAILY Patient's Own Medication [Ptom] Med 01/05/20 21:00 Active 1 each INH Q12HR Sertraline [Zoloft] Med 01/05/20 21:00 Active 50 mg PO BEDTIME amLODIPine [Norvasc] Med 01/06/20 09:00 Active 5 mg PO DAILY Medication Orders Acetaminophen (Tylenol) 650 mg PO Q4H PRN PRN Reason: Pain (Mild 1-3)/fever Albuterol/Ipratropium (Duoneb 3.0-0.5 Mg/3 Ml) 3 ml NEB Q4HRRT PRN PRN Reason: Shortness Of Breath/wheezing Amlodipine Besylate (Norvasc) 5 mg PO DAILY [facility] Last Admin: 01/06/20 10:21 Dose: 5 mg Documented by: SHEREE Benzonatate (Maria M Reyes) 100 mg PO Q6H [facility] Last Admin: 01/06/20 17:09 Dose: 100 mg Documented by: Admin: 01/06/20 10:22 Dose: 100 mg Documented by: Admin: 01/06/20 04:11 Dose: 100 mg Documented by: Admin: 01/05/20 22:56 Dose: 100 mg Documented by: Admin: 01/05/20 17:57 Dose: 100 mg Documented by: AYALA Docusate Sodium (Colace) 100 mg PO DAILY [facility] Last Admin: 01/06/20 10:21 Dose: 100 mg Documented by: SHEREE Enoxaparin Sodium (Lovenox) 30 mg SUBCUT Q24H [facility] Last Admin: 01/06/20 17:09 Dose: 30 mg Documented by: [id number] Guaifenesin/Codeine Phosphate (Robitussin Ac) 5 ml PO BEDTIME PRN PRN Reason: Cough Levofloxacin/Dextrose 750 mg/ (Premix) 150 mls @ 100 mls/hr IV Q48H [facility] Last Admin: 01/06/20 13:28 Dose: 100 mls/hr Documented by: SHEREE Metoprolol Tartrate (Lopressor) 25 mg PO BID [facility] Last Admin: 01/06/20 10:22 Dose: 25 mg Documented by: Admin: 01/05/20 20:48 Dose: 25 mg Documented by: AMINTA Ondansetron HCl (Zofran Odt) 4 mg PO Q4H PRN PRN Reason: nausea, able to take PO Pantoprazole Sodium (Protonix) 40 mg PO DAILY [facility] Last Admin: 01/06/20 10:22 Dose: 40 mg Documented by: SHEREE Budesonide/Formoterol [ Symbicort 160-4.5 Mcg] 1 each INH Q12HR [facility] Last Admin: 01/06/20 10:26 Dose: Not Given Documented by: Admin: 01/05/20 20:49 Dose: Not Given Documented by: AMINTA Sertraline HCl (Zoloft) 50 mg PO BEDTIME [facility] Last Admin: 01/05/20 20:49 Dose: 50 mg Documented by: AMINTA Sodium Chloride (Saline Flush) 10 ml FLUSH ASDIRECTED PRN PRN Reason: Keep Vein Open Last Admin: 01/05/20 11:44 Dose: 10 ml Documented by: CATHERINE Sodium Chloride (Saline Flush) 2.5 ml FLUSH ASDIRECTED PRN PRN Reason: Keep Vein Open Last Admin: 01/05/20 11:44 Dose: 2.5 ml Documented by: CATHERINE Vancomycin HCl (Pharmacy To Dose - Vancomycin) 1 dose .XX ASDIRECTED [facility] Labs: Laboratory Tests 01/05/20 01/05/20 01/05/20 Range/Units 11:21 11:21 11:21 WBC 9.55 (4.0-11.0) K/uL RBC 4.05 L (4.30-5.90) M/uL Hgb 11.8 L (12.0-16.0) g/dL Hct 36.5 (36.0-46.0) % MCV 90.1 (80.0-98.0) fL MCH 29.1 (27.0-32.0) pg MCHC 32.3 (31.0-37.0) g/dL RDW Std Deviation 49.3 (28.0-62.0) fl RDW Coeff of Kiet 15 (11.0-15.0) % Plt Count 288 (150-400) K/uL MPV 9.10 (7.40-12.00) fL Neut % (Auto) 78.7 (48.0-80.0) % Lymph % (Auto) 8.8 L (16.0-40.0) % [place] % (Auto) 6.0 (0.0-15.0) % Eos % (Auto) 6.2 (0.0-7.0) % Baso % (Auto) 0.3 (0.0-1.5) % Neut # (Auto) 7.5 H (1.4-5.7) K/uL Lymph # (Auto) 0.8 (0.6-2.4) K/uL [place] # (Auto) 0.6 (0.0-0.8) K/uL Eos # (Auto) 0.6 (0.0-0.7) K/uL Baso # (Auto) 0.0 (0.0-0.1) K/uL Nucleated RBC % 0.0 /100WBC Nucleated RBCs # 0 K/uL D-Dimer, Quantitative (0.0-0.50) mg/L FEU VBG pH (7.31-7.41) VBG pCO2 (35-45) mmHG VBG pO2 (30-40) mmHG VBG HCO3 (22-30) mEq/L VBG Total CO2 (41-51) mmol/L VBG Base Excess (-3.0-3.0) Sodium 132 L (136-145) mmol/L Potassium 4.1 (3.5-5.1) mmol/L Chloride 97 L (98-107) mmol/L Carbon Dioxide 28.7 (21.0-32.0) mmol/L BUN 24 H (7.0-18.0) mg/dL Creatinine 0.9 (0.6-1.0) mg/dL Est Cr Clr Drug Dosing 29.99 mL/min Estimated GFR (MDRD) > 60.0 ml/min Glucose 95 (74-106) mg/dL Calcium 9.0 (8.5-10.1) mg/dL Total Bilirubin 0.4 (0.2-1.0) mg/dL AST 25 (15-37) IU/L ALT 28 (14-63) IU/L Alkaline Phosphatase 81 (46-116) U/L Troponin I < 0.050 (0.000-0.056) ng/mL B-Natriuretic Peptide 272 H (<100) PG/ML Total Protein 6.6 (6.4-8.2) g/dL Albumin 3.4 (3.4-5.0) g/dL Globulin 3.2 (2.6-4.0) g/dL Albumin/Globulin Ratio 1.1 (0.9-1.6) Urine Color Urine Appearance Urine pH (5.0-8.0) Ur Specific [place] (1.001-1.035) Urine Protein (NEGATIVE) mg/dL Urine Glucose (UA) (NEGATIVE) mg/dL Urine Ketones (NEGATIVE) mg/dL Urine Occult Blood (NEGATIVE) Urine Nitrite (NEGATIVE) Urine Bilirubin (NEGATIVE) Urine Urobilinogen (<2.0) EU/dL Ur Leukocyte Esterase (NEGATIVE) Urine RBC (0-2/HPF) Urine WBC (0-5/HPF) Ur Epithelial Cells (NONE-FEW) Urine Bacteria (NEGATIVE) SARS-CoV-2 RNA (CARLEE) (NEGATIVE) 01/05/20 01/05/20 01/05/20 Range/Units 11:21 11:21 11:47 WBC (4.0-11.0) K/uL RBC (4.30-5.90) M/uL Hgb (12.0-16.0) g/dL Hct (36.0-46.0) % MCV (80.0-98.0) fL MCH (27.0-32.0) pg MCHC (31.0-37.0) g/dL RDW Std Deviation (28.0-62.0) fl RDW Coeff of Kiet (11.0-15.0) % Plt Count (150-400) K/uL MPV (7.40-12.00) fL Neut % (Auto) (48.0-80.0) % Lymph % (Auto) (16.0-40.0) % [place] % (Auto) (0.0-15.0) % Eos % (Auto) (0.0-7.0) % Baso % (Auto) (0.0-1.5) % Neut # (Auto) (1.4-5.7) K/uL Lymph # (Auto) (0.6-2.4) K/uL [place] # (Auto) (0.0-0.8) K/uL Eos # (Auto) (0.0-0.7) K/uL Baso # (Auto) (0.0-0.1) K/uL Nucleated RBC % /100WBC Nucleated RBCs # K/uL D-Dimer, Quantitative 3.13 H (0.0-0.50) mg/L FEU VBG pH 7.34 (7.31-7.41) VBG pCO2 51 H (35-45) mmHG VBG pO2 32 (30-40) mmHG VBG HCO3 28 (22-30) mEq/L VBG Total CO2 26 L (41-51) mmol/L VBG Base Excess 1.1 (-3.0-3.0) Sodium (136-145) mmol/L Potassium (3.5-5.1) mmol/L Chloride (98-107) mmol/L Carbon Dioxide (21.0-32.0) mmol/L BUN (7.0-18.0) mg/dL Creatinine (0.6-1.0) mg/dL Est Cr Clr Drug Dosing mL/min Estimated GFR (MDRD) ml/min Glucose (74-106) mg/dL Calcium (8.5-10.1) mg/dL Total Bilirubin (0.2-1.0) mg/dL AST (15-37) IU/L ALT (14-63) IU/L Alkaline Phosphatase (46-116) U/L Troponin I (0.000-0.056) ng/mL B-Natriuretic Peptide (<100) PG/ML Total Protein (6.4-8.2) g/dL Albumin (3.4-5.0) g/dL Globulin (2.6-4.0) g/dL Albumin/Globulin Ratio (0.9-1.6) Urine Color YELLOW Urine Appearance SLT CLOUDY Urine pH 6.5 (5.0-8.0) Ur Specific [place] 1.010 (1.001-1.035) Urine Protein NEGATIVE (NEGATIVE) mg/dL Urine Glucose (UA) NEGATIVE (NEGATIVE) mg/dL Urine Ketones NEGATIVE (NEGATIVE) mg/dL Urine Occult Blood SMALL H (NEGATIVE) Urine Nitrite POSITIVE H (NEGATIVE) Urine Bilirubin NEGATIVE (NEGATIVE) Urine Urobilinogen 0.2 (<2.0) EU/dL Ur Leukocyte Esterase LARGE H (NEGATIVE) Urine RBC 0-3 (0-2/HPF) Urine WBC 15-25 (0-5/HPF) Ur Epithelial Cells RARE (NONE-FEW) Urine Bacteria 1+ H (NEGATIVE) SARS-CoV-2 RNA (CARLEE) (NEGATIVE) 01/05/20 Range/Units 11:53 WBC (4.0-11.0) K/uL RBC (4.30-5.90) M/uL Hgb (12.0-16.0) g/dL Hct (36.0-46.0) % MCV (80.0-98.0) fL MCH (27.0-32.0) pg MCHC (31.0-37.0) g/dL RDW Std Deviation (28.0-62.0) fl RDW Coeff of Kiet (11.0-15.0) % Plt Count (150-400) K/uL MPV (7.40-12.00) fL Neut % (Auto) (48.0-80.0) % Lymph % (Auto) (16.0-40.0) % [place] % (Auto) (0.0-15.0) % Eos % (Auto) (0.0-7.0) % Baso % (Auto) (0.0-1.5) % Neut # (Auto) (1.4-5.7) K/uL Lymph # (Auto) (0.6-2.4) K/uL [place] # (Auto) (0.0-0.8) K/uL Eos # (Auto) (0.0-0.7) K/uL Baso # (Auto) (0.0-0.1) K/uL Nucleated RBC % /100WBC Nucleated RBCs # K/uL D-Dimer, Quantitative (0.0-0.50) mg/L FEU VBG pH (7.31-7.41) VBG pCO2 (35-45) mmHG VBG pO2 (30-40) mmHG VBG HCO3 (22-30) mEq/L VBG Total CO2 (41-51) mmol/L VBG Base Excess (-3.0-3.0) Sodium (136-145) mmol/L Potassium (3.5-5.1) mmol/L Chloride (98-107) mmol/L Carbon Dioxide (21.0-32.0) mmol/L BUN (7.0-18.0) mg/dL Creatinine (0.6-1.0) mg/dL Est Cr Clr Drug Dosing mL/min Estimated GFR (MDRD) ml/min Glucose (74-106) mg/dL Calcium (8.5-10.1) mg/dL Total Bilirubin (0.2-1.0) mg/dL AST (15-37) IU/L ALT (14-63) IU/L Alkaline Phosphatase (46-116) U/L Troponin I (0.000-0.056) ng/mL B-Natriuretic Peptide (<100) PG/ML Total Protein (6.4-8.2) g/dL Albumin (3.4-5.0) g/dL Globulin (2.6-4.0) g/dL Albumin/Globulin Ratio (0.9-1.6) Urine Color Urine Appearance Urine pH (5.0-8.0) Ur Specific [place] (1.001-1.035) Urine Protein (NEGATIVE) mg/dL Urine Glucose (UA) (NEGATIVE) mg/dL Urine Ketones (NEGATIVE) mg/dL Urine Occult Blood (NEGATIVE) Urine Nitrite (NEGATIVE) Urine Bilirubin (NEGATIVE) Urine Urobilinogen (<2.0) EU/dL Ur Leukocyte Esterase (NEGATIVE) Urine RBC (0-2/HPF) Urine WBC (0-5/HPF) Ur Epithelial Cells (NONE-FEW) Urine Bacteria (NEGATIVE) SARS-CoV-2 RNA (CARLEE) NEGATIVE (NEGATIVE) Meds: Medications Generic Name Dose Route Start Last Admin Trade Name Freq PRN Reason Stop Dose Admin Acetaminophen 650 mg 01/05/20 16:38 Tylenol PO Q4H PRN Pain (Mild 1-3)/fever Albuterol/Ipratropium 3 ml 01/05/20 16:38 Duoneb 3.0-0.5 Mg/3 Ml NEB Q4HRRT PRN Shortness Of Breath/wheezing Amlodipine Besylate 5 mg 01/06/20 09:00 01/06/20 10:21 Norvasc PO 5 mg DAILY [place] Administration Benzonatate 100 mg 01/05/20 17:00 01/06/20 17:09 Tessalon Perles PO 100 mg Q6H [place] Administration Docusate Sodium 100 mg 01/06/20 09:00 01/06/20 10:21 Colace PO 100 mg DAILY [place] Administration Enoxaparin Sodium 30 mg 01/06/20 18:00 01/06/20 17:09 Lovenox SUBCUT 30 mg Q24H [place] Administration Guaifenesin/Codeine Phosphate 5 ml 01/05/20 17:01 Robitussin Ac PO BEDTIME PRN Cough Levofloxacin/Dextrose 750 mg/ 150 mls @ 100 mls/hr 01/06/20 12:00 01/06/20 13:28 Premix IV 100 mls/hr Q48H [place] Administration Metoprolol Tartrate 25 mg 01/05/20 21:00 01/06/20 10:22 Lopressor PO 25 mg BID [place] Administration Ondansetron HCl 4 mg 01/05/20 16:38 Zofran Odt PO Q4H PRN nausea, able to take PO Pantoprazole Sodium 40 mg 01/06/20 09:00 01/06/20 10:22 Protonix PO 40 mg DAILY [place] Administration Budesonide/ 1 each 01/05/20 21:00 01/06/20 10:26 Formoterol [ INH Not Given Symbicort 160-4.5 Q12HR [facility] Mcg] Sertraline HCl 50 mg 01/05/20 21:00 01/05/20 20:49 Zoloft PO 50 mg BEDTIME [place] Administration Sodium Chloride 10 ml 01/05/20 10:34 01/05/20 11:44 Saline Flush FLUSH 10 ml ASDIRECTED PRN Administration Keep Vein Open Sodium Chloride 2.5 ml 01/05/20 10:34 01/05/20 11:44 Saline Flush FLUSH 2.5 ml ASDIRECTED PRN Administration Keep Vein Open Vancomycin HCl 1 dose 01/05/20 17:00 Pharmacy To Dose - Vancomycin .XX ASDIRECTED [facility] Discontinued Medications Generic Name Dose Route Start Last Admin Trade Name Pola PRN Reason Stop Dose Admin Albuterol/Ipratropium 3 ml 01/05/20 10:46 01/05/20 11:37 Duoneb 3.0-0.5 Mg/3 Ml NEB 01/05/20 10:47 3 ml ONETIME ONE Administration Albuterol/Ipratropium 3 ml 01/05/20 10:46 01/05/20 11:37 Duoneb 3.0-0.5 Mg/3 Ml NEB 01/05/20 10:47 3 ml ONETIME ONE Administration Enoxaparin Sodium 40 mg 01/05/20 17:00 01/05/20 17:56 Lovenox SUBCUT 40 mg Q24H [place] Administration Ceftriaxone Sodium/Dextrose 1 50 mls @ 100 mls/hr 01/05/20 13:25 01/05/20 14:53 gm/ Premix IV 01/05/20 13:54 100 mls/hr ONETIME ONE Administration Sodium Chloride 1,000 mls @ 750 mls/hr 01/05/20 15:45 01/05/20 16:12 Normal Saline IV 01/05/20 17:04 750 mls/hr STAT ONE Administration Piperacillin Sod/Tazobactam 100 mls @ 100 mls/hr 01/05/20 16:45 01/06/20 10:22 Sod 4.5 gm/ Sodium Chloride IV 100 mls/hr Q6H [facility] Administration Vancomycin HCl 500 mg/ Sodium 100 mls @ 100 mls/hr 01/05/20 18:30 01/05/20 19:29 Chloride IV 100 mls/hr Q24H [place] Administration Iopamidol 50 ml 01/05/20 14:49 01/05/20 14:49 Isovue Multipack-370 (76%) IVPUSH 01/05/20 14:50 50 ml ONETIME STA Administration Methylprednisolone Sodium Succinate 125 mg 01/05/20 10:46 01/05/20 11:44 Solu-Medrol IVPUSH 01/05/20 10:47 125 mg ONETIME ONE Administration Non-Formulary Medication 5 ml 01/05/20 16:52 Codeine Phosphate/Guaifenesin [Guaifen-Codeine 200-20 Mg/10ml] PO BEDTIME PRN Cough Departure - Departure Time of Disposition: 15:44 Sepsis Event Note (ED) - Evaluation Sepsis Screening Result: No Definite Risk
[2020-01-05] MEDS: Sodium Chloride 0.9% 2.5 ML Syringe FLUSH PRN (11:44)
--- NOTE | 2020-01-05 11:53 | CR ---
INDICATION: Dyspnea. Productive cough. History of COVID. COMPARISON: December 18, 2019 TECHNIQUE: Two views of the chest were acquired FINDINGS: TUBES AND LINES: None. HEART AND MEDIASTINUM: The heart size is normal. The mediastinal contour appears normal for patient age. LUNGS AND PLEURAL SPACES: The lungs are markedly hyperinflated consistent with COPD. However, there is no acute appearing focal finding.The pleural spaces are unremarkable. OSSEOUS STRUCTURES: Age-appropriate appearance. No acute focal finding. IMPRESSION: Markedly hyperinflated lungs consistent with COPD. No acute focal lung finding. Normal-appearing pleural spaces. Similar appearance to the prior exam. Dictated by John Molina MD @ Jan 05 2020 11:51AM Signed by Dr. John Molina @ Jan 05 2020 11:52AM
[2020-01-05 12:05] LABS: BLOOD UREA NITROGEN,BUN 24 mg/dL (7.0-18.0); CARBON DIOXIDE,CO2 28.7 mmol/L (21.0-32.0); CHLORIDE,CL 97 mmol/L (98-107); GLUCOSE RANDOM 95 mg/dL (74-106); POTASSIUM,K 4.1 mmol/L (3.5-5.1); SODIUM,NA 132 mmol/L (136-145)
[2020-01-05] MEDS ORDERED: cefTRIAXone 1 GM in Premix Bag 1 BAG IV ONE (13:25)
[2020-01-05] MEDS ORDERED: Iopamidol 755 MG/ML 500 ML Multipack Bottle IVPUSH STA (14:49)
--- NOTE | 2020-01-05 15:10 | CT ---
Indication: Shortness of breath Technique: Volumetric multidetector CT images of the chest were obtained after the administration of IV contrast. 50 cc Isovue 370 Comparison: None available. Findings: The thoracic aorta is non aneurysmal with scattered atherosclerotic calcifications. The thoracic inlet is otherwise grossly unremarkable. There is no central filling defect to suggest pulmonary embolism. There is no mediastinal, hilar or axillary adenopathy. There is thickening of the distal trachea and proximal bronchi with bubbly secretions in the markie on proximal bronchi likely representing bronchitis changes. There is traction bronchiectasis and mucoid impaction within lung bases. There is severe emphysematous changes of the bilateral hemithoraces predominantly within the upper lobes. There is patchy airspace opacification of the right greater than left lower lobes likely representing developing infiltrates. There is no evidence of pulmonary mass or suspicious pulmonary nodule. The partially visualized upper abdominal viscera are within normal limits. The thoracic vertebral body heights are grossly maintained with mild to moderate multilevel degenerative disc disease. There is no spondylolisthesis or displaced fracture. Impression: Severe emphysematous changes of the bilateral hemithoraces with scattered bubbly secretions within the distal trachea and proximal bronchi with airspace opacification of the right lung base which may represent developing infiltrate. No evidence of pulmonary embolism. Please note that all CT scans at this facility use dose modulation, iterative reconstruction, and/or weight-based dosing when appropriate to reduce radiation dose to as low as reasonably achievable. Dictated by Morteza Collado MD @ Jan 05 2020 2:53PM Signed by Dr. Morteza Collado @ Jan 05 2020 3:08PM
[2020-01-05] MEDS ORDERED: Sodium Chloride 0.9% 1,000 ML IV ONE (15:45)
[2020-01-05] MEDS ORDERED: Acetaminophen 325 MG Tab PO PRN (16:38)
[2020-01-05] MEDS ORDERED: Albuterol/Ipratropium 3.0-0.5 MG/3 ML Neb Soln NEB PRN (16:38)
[2020-01-05] MEDS ORDERED: Ondansetron 4 MG Tab.DIS PO PRN (16:38)
[2020-01-05] MEDS ORDERED: GUAIFENESIN PO PRN (16:52)
[2020-01-05] MEDS ORDERED: CODEINE PHOSPHATE PO PRN (16:52)
[2020-01-05] MEDS ORDERED: [UNRECOGNIZED DRUG - OTHER] PO PRN (16:52)
[2020-01-05] MEDS ORDERED: Enoxaparin 40 MG/0.4 ML Syringe SUBCUT SCH (17:00)
[2020-01-05] MEDS ORDERED: Codeine/guaiFENesin 10-100 MG/5 ML Syrup 5 ML Cup PO PRN (17:01)
--- NOTE | 2020-01-05 17:33 | PCM.HP.2 ---
<Talia May - Last Filed: 01/05/20 17:22> H&P History of Present Illness - General Date of Service: 01/05/20 Admit Problem/Dx: Admission Diagnosis/Problem Admission Diagnosis/Problem COPD with acute lower respiratory infection Source of Information: Patient History Limitations: Reports: No Limitations - History of Present Illness Initial Comments - Free Text/Narative: Pt is a 79 y/o F with PMHx of HTN, COPD, Orthostatic Hypotension. Returns to h ospital today with complaints of worsening cough, s.o.b. States that it improved in the ED after a breathing treatment was administered. Complained of some intermittent chest pain, states it started today, on the upper left side, 4/10 on the pain scale, dose not radiate anywhere. In the ER EKG and Troponins were normal. D. Dimer was elevated; CTA ruled out any PE but demonstrated developing possible infiltrates bilaterally. Furthermore, pt denies any fever, chills, nausea, vomiting, sick contacts, travel. Denies any alleviating or aggravating factors. Pt was previoulsy admitted with a COPD exacerbation, sent home with abx, which she completed the course of and has been consistently compliant with her home medications. Onset of Symptoms: Reports: Gradual - Related Data Allergies/Adverse Reactions: Allergies Allergy/AdvReac Type Severity Reaction Status Date / Time No Known Allergies Allergy Verified 01/05/20 19:15 Home Medications: Home Meds Metoprolol Tartrate 25 mg PO BID 02/18/15 [History] Sertraline [Zoloft] 50 mg PO BEDTIME 02/18/15 [History] Albuterol [Ventolin HFA] 1 puff INH BID 12/18/19 [History] Budesonide/Formoterol [Symbicort 160-4.5 MCG] 1 inh INH Q12HR 12/18/19 [History] Codeine Phosphate/Guaifenesin [Guaifen-Codeine 200-20 mg/10Ml] 5 ml PO BEDTIME PRN 12/18/19 [History] Ipratropium/Albuterol Sulfate [Iprat-Albut 0.5-3(2.5) MG/3 ML] 3 ml IH Q6HR PRN 12/18/19 [History] amLODIPine [Norvasc] 5 mg PO DAILY 12/18/19 [History] Albuterol/Ipratropium [DuoNeb 3.0-0.5 MG/3 ML] 3 ml NEB Q6HRRT neb 12/22/19 [Rx] Benzonatate [Tessalon Perle] 100 mg PO Q6H #40 capsule 12/22/19 [Rx] Docusate Sodium [Colace] 100 mg PO DAILY #30 cap 12/22/19 [Rx] Albuterol/Ipratropium [DuoNeb 3.0-0.5 MG/3 ML] 3 ml NEB Q4HRRT PRN neb 01/07/20 [Rx] levoFLOXacin [Levaquin] 750 mg PO Q48H 5 Days #5 tab 01/07/20 [Rx] Past Medical History Cardiovascular History: Reports: Hypertension Respiratory History: Reports: COPD Other Respiratory History: emphysema [employer] TE[employer]ER History: Reports: Psychiatric History: Reports: Anxiety, Depression - Infectious Disease History Infectious Disease History: Reports: Chicken Pox, Shingles - Past Surgical History Musculoskeletal Surgical History: Reports: Hip Replacement, Other (See Below) Social & Family History - Family History Family Medical History: No Pertinent Family History Cardiac: Reports: Hypertension Respiratory: Reports: COPD OBGYN: Reports: Endocrine/Metabolic: Reports: Diabetes, type II - Tobacco Use Tobacco Use Status *Q: Never Tobacco User - Caffeine Use Caffeine Use: Reports: Coffee - Recreational Drug Use Recreational Drug Use: No H&P Review of Systems - Review of Systems: Review Of Systems: Comprehensive ROS is negative, except as noted in HPI. Pulmonary: Reports: Shortness of Breath, Pleuritic Chest Pain, Cough, Sputum Exam - Exam Exam: See Below - Vital Signs Vital Signs: Last Vital Signs Temp 96.1 F L 01/05/20 10:36 Pulse 88 01/05/20 16:14 Resp 21 H 01/05/20 10:36 BP 152/81 H 01/05/20 16:14 Pulse Ox 93 L 01/05/20 16:14 Weight: 36.287 kg - Exam Quality Assessment: DVT Prophylaxis. No: Supplemental Oxygen General: Alert, Oriented HEENT: Conjunctiva Clear, EACs Clear, EOMI, Mucosa Moist & [place], Pupils Equal, Pupils Reactive, PERRLA Neck: Supple, Trachea Midline. No: Lymphadenopathy, JVD, Thyromegaly Lungs: Crackles (worst on Lt upper lobe ) Cardiovascular: Regular Rate, Regular Rhythm, Normal S1, Normal S2 GI/Abdominal Exam: Normal Bowel Sounds, Soft, Non-Tender, No Organomegaly, No Distention, No Abnormal Bruit Extremities: Normal Inspection, Normal Range of Motion, No Pedal Edema, Normal Capillary Refill Peripheral Pulses: 2+: Radial (L), Radial (R), Dorsalis Pedis (L), Dorsalis Pedis (R) Skin: Warm, Dry Neurological: Cranial Nerves Intact, Reflexes Equal Bilateral Neuro Extensive - Mental Status: Alert, Oriented x3, Normal Mood/Affect, Normal Cognition, Memory Intact Neuro Extensive - Motor, Sensory, Reflexes: CN II-XII Intact, Normal Gait, Normal Reflexes DTR: 2+: Bicep (L), Bicep (R), Patella (L), Patella (R) Psychiatric: Alert, Normal Affect, Normal Mood - Patient Data Lab Results Last 24 hrs: Laboratory Results - last 24 hr 01/05/20 01/05/20 01/05/20 Range/Units 11:21 11:21 11:21 WBC 9.55 (4.0-11.0) K/uL RBC 4.05 L (4.30-5.90) M/uL Hgb 11.8 L (12.0-16.0) g/dL Hct 36.5 (36.0-46.0) % MCV 90.1 (80.0-98.0) fL MCH 29.1 (27.0-32.0) pg MCHC 32.3 (31.0-37.0) g/dL RDW Std Deviation 49.3 (28.0-62.0) fl RDW Coeff of Kiet 15 (11.0-15.0) % Plt Count 288 (150-400) K/uL MPV 9.10 (7.40-12.00) fL Neut % (Auto) 78.7 (48.0-80.0) % Lymph % (Auto) 8.8 L (16.0-40.0) % [place] % (Auto) 6.0 (0.0-15.0) % Eos % (Auto) 6.2 (0.0-7.0) % Baso % (Auto) 0.3 (0.0-1.5) % Neut # (Auto) 7.5 H (1.4-5.7) K/uL Lymph # (Auto) 0.8 (0.6-2.4) K/uL [place] # (Auto) 0.6 (0.0-0.8) K/uL Eos # (Auto) 0.6 (0.0-0.7) K/uL Baso # (Auto) 0.0 (0.0-0.1) K/uL Nucleated RBC % 0.0 /100WBC Nucleated RBCs # 0 K/uL D-Dimer, Quantitative (0.0-0.50) mg/L FEU VBG pH (7.31-7.41) VBG pCO2 (35-45) mmHG VBG pO2 (30-40) mmHG VBG HCO3 (22-30) mEq/L VBG Total CO2 (41-51) mmol/L VBG Base Excess (-3.0-3.0) Sodium 132 L (136-145) mmol/L Potassium 4.1 (3.5-5.1) mmol/L Chloride 97 L (98-107) mmol/L Carbon Dioxide 28.7 (21.0-32.0) mmol/L BUN 24 H (7.0-18.0) mg/dL Creatinine 0.9 (0.6-1.0) mg/dL Est Cr Clr Drug Dosing 29.99 mL/min Estimated GFR (MDRD) > 60.0 ml/min Glucose 95 (74-106) mg/dL Calcium 9.0 (8.5-10.1) mg/dL Total Bilirubin 0.4 (0.2-1.0) mg/dL AST 25 (15-37) IU/L ALT 28 (14-63) IU/L Alkaline Phosphatase 81 (46-116) U/L Troponin I < 0.050 (0.000-0.056) ng/mL B-Natriuretic Peptide 272 H (<100) PG/ML Total Protein 6.6 (6.4-8.2) g/dL Albumin 3.4 (3.4-5.0) g/dL Globulin 3.2 (2.6-4.0) g/dL Albumin/Globulin Ratio 1.1 (0.9-1.6) Urine Color Urine Appearance Urine pH (5.0-8.0) Ur Specific [place] (1.001-1.035) Urine Protein (NEGATIVE) mg/dL Urine Glucose (UA) (NEGATIVE) mg/dL Urine Ketones (NEGATIVE) mg/dL Urine Occult Blood (NEGATIVE) Urine Nitrite (NEGATIVE) Urine Bilirubin (NEGATIVE) Urine Urobilinogen (<2.0) EU/dL Ur Leukocyte Esterase (NEGATIVE) Urine RBC (0-2/HPF) Urine WBC (0-5/HPF) Ur Epithelial Cells (NONE-FEW) Urine Bacteria (NEGATIVE) SARS-CoV-2 RNA (CARLEE) (NEGATIVE) 01/05/20 01/05/20 01/05/20 Range/Units 11:21 11:21 11:47 WBC (4.0-11.0) K/uL RBC (4.30-5.90) M/uL Hgb (12.0-16.0) g/dL Hct (36.0-46.0) % MCV (80.0-98.0) fL MCH (27.0-32.0) pg MCHC (31.0-37.0) g/dL RDW Std Deviation (28.0-62.0) fl RDW Coeff of Kiet (11.0-15.0) % Plt Count (150-400) K/uL MPV (7.40-12.00) fL Neut % (Auto) (48.0-80.0) % Lymph % (Auto) (16.0-40.0) % [place] % (Auto) (0.0-15.0) % Eos % (Auto) (0.0-7.0) % Baso % (Auto) (0.0-1.5) % Neut # (Auto) (1.4-5.7) K/uL Lymph # (Auto) (0.6-2.4) K/uL [place] # (Auto) (0.0-0.8) K/uL Eos # (Auto) (0.0-0.7) K/uL Baso # (Auto) (0.0-0.1) K/uL Nucleated RBC % /100WBC Nucleated RBCs # K/uL D-Dimer, Quantitative 3.13 H (0.0-0.50) mg/L FEU VBG pH 7.34 (7.31-7.41) VBG pCO2 51 H (35-45) mmHG VBG pO2 32 (30-40) mmHG VBG HCO3 28 (22-30) mEq/L VBG Total CO2 26 L (41-51) mmol/L VBG Base Excess 1.1 (-3.0-3.0) Sodium (136-145) mmol/L Potassium (3.5-5.1) mmol/L Chloride (98-107) mmol/L Carbon Dioxide (21.0-32.0) mmol/L BUN (7.0-18.0) mg/dL Creatinine (0.6-1.0) mg/dL Est Cr Clr Drug Dosing mL/min Estimated GFR (MDRD) ml/min Glucose (74-106) mg/dL Calcium (8.5-10.1) mg/dL Total Bilirubin (0.2-1.0) mg/dL AST (15-37) IU/L ALT (14-63) IU/L Alkaline Phosphatase (46-116) U/L Troponin I (0.000-0.056) ng/mL B-Natriuretic Peptide (<100) PG/ML Total Protein (6.4-8.2) g/dL Albumin (3.4-5.0) g/dL Globulin (2.6-4.0) g/dL Albumin/Globulin Ratio (0.9-1.6) Urine Color YELLOW Urine Appearance SLT CLOUDY Urine pH 6.5 (5.0-8.0) Ur Specific [place] 1.010 (1.001-1.035) Urine Protein NEGATIVE (NEGATIVE) mg/dL Urine Glucose (UA) NEGATIVE (NEGATIVE) mg/dL Urine Ketones NEGATIVE (NEGATIVE) mg/dL Urine Occult Blood SMALL H (NEGATIVE) Urine Nitrite POSITIVE H (NEGATIVE) Urine Bilirubin NEGATIVE (NEGATIVE) Urine Urobilinogen 0.2 (<2.0) EU/dL Ur Leukocyte Esterase LARGE H (NEGATIVE) Urine RBC 0-3 (0-2/HPF) Urine WBC 15-25 (0-5/HPF) Ur Epithelial Cells RARE (NONE-FEW) Urine Bacteria 1+ H (NEGATIVE) SARS-CoV-2 RNA (CARLEE) (NEGATIVE) 01/05/20 Range/Units 11:53 WBC (4.0-11.0) K/uL RBC (4.30-5.90) M/uL Hgb (12.0-16.0) g/dL Hct (36.0-46.0) % MCV (80.0-98.0) fL MCH (27.0-32.0) pg MCHC (31.0-37.0) g/dL RDW Std Deviation (28.0-62.0) fl RDW Coeff of Kiet (11.0-15.0) % Plt Count (150-400) K/uL MPV (7.40-12.00) fL Neut % (Auto) (48.0-80.0) % Lymph % (Auto) (16.0-40.0) % [place] % (Auto) (0.0-15.0) % Eos % (Auto) (0.0-7.0) % Baso % (Auto) (0.0-1.5) % Neut # (Auto) (1.4-5.7) K/uL Lymph # (Auto) (0.6-2.4) K/uL [place] # (Auto) (0.0-0.8) K/uL Eos # (Auto) (0.0-0.7) K/uL Baso # (Auto) (0.0-0.1) K/uL Nucleated RBC % /100WBC Nucleated RBCs # K/uL D-Dimer, Quantitative (0.0-0.50) mg/L FEU VBG pH (7.31-7.41) VBG pCO2 (35-45) mmHG VBG pO2 (30-40) mmHG VBG HCO3 (22-30) mEq/L VBG Total CO2 (41-51) mmol/L VBG Base Excess (-3.0-3.0) Sodium (136-145) mmol/L Potassium (3.5-5.1) mmol/L Chloride (98-107) mmol/L Carbon Dioxide (21.0-32.0) mmol/L BUN (7.0-18.0) mg/dL Creatinine (0.6-1.0) mg/dL Est Cr Clr Drug Dosing mL/min Estimated GFR (MDRD) ml/min Glucose (74-106) mg/dL Calcium (8.5-10.1) mg/dL Total Bilirubin (0.2-1.0) mg/dL AST (15-37) IU/L ALT (14-63) IU/L Alkaline Phosphatase (46-116) U/L Troponin I (0.000-0.056) ng/mL B-Natriuretic Peptide (<100) PG/ML Total Protein (6.4-8.2) g/dL Albumin (3.4-5.0) g/dL Globulin (2.6-4.0) g/dL Albumin/Globulin Ratio (0.9-1.6) Urine Color Urine Appearance Urine pH (5.0-8.0) Ur Specific [place] (1.001-1.035) Urine Protein (NEGATIVE) mg/dL Urine Glucose (UA) (NEGATIVE) mg/dL Urine Ketones (NEGATIVE) mg/dL Urine Occult Blood (NEGATIVE) Urine Nitrite (NEGATIVE) Urine Bilirubin (NEGATIVE) Urine Urobilinogen (<2.0) EU/dL Ur Leukocyte Esterase (NEGATIVE) Urine RBC (0-2/HPF) Urine WBC (0-5/HPF) Ur Epithelial Cells (NONE-FEW) Urine Bacteria (NEGATIVE) SARS-CoV-2 RNA (CARLEE) NEGATIVE (NEGATIVE) Result Diagrams: 01/05/20 11:21 01/05/20 11:21 Sepsis Event Note - Evaluation Sepsis Screening Result: No Definite Risk - Focused Exam Vital Signs: Vital Signs Temp Pulse Resp BP Pulse Ox 01/05/20 16:14 88 152/81 H 93 L 01/05/20 15:46 81 127/67 93 L 01/05/20 15:16 83 144/66 H 01/05/20 13:30 117/81 01/05/20 11:45 73 89/65 L 100 01/05/20 10:36 96.1 F L 74 21 H 181/72 H 95 - Problem List (1) Pneumonia SNOMED Code(s): 020021534 ICD Code: J18.9 - PNEUMONIA, UNSPECIFIED ORGANISM Status: Acute (2) Orthostatic hypotension SNOMED Code(s): 43253857 ICD Code: I95.1 - ORTHOSTATIC HYPOTENSION Status: Chronic (3) Elevated BUN SNOMED Code(s): 012994860 ICD Code: R79.9 - ABNORMAL FINDING OF BLOOD CHEMISTRY, UNSPECIFIED Status: Acute (4) Hypertension SNOMED Code(s): 12608790 ICD Code: I10 - ESSENTIAL (PRIMARY) HYPERTENSION Status: Chronic (5) Urinary tract infection SNOMED Code(s): 49281905 ICD Code: N39.0 - URINARY TRACT INFECTION, SITE NOT SPECIFIED Status: Acute Qualifiers: Urinary tract infection type: acute cystitis Hematuria presence: without hematuria Qualified Code(s): N30.00 - Acute cystitis without hematuria Problem List Initiated/Reviewed/Updated: Yes Orders Last 24hrs: Active Orders 24 hr Category Date Time Status Antiembolic Devices [RC] PER UNIT ROUTINE Care 01/05/20 16:39 Ordered EKG Documentation Completion [RC] STAT Care 01/05/20 10:34 Active Oxygen Therapy [RC] PRN Care 01/05/20 16:38 Ordered Pulse Oximetry [RC] CONTINUOUS Care 01/05/20 16:38 Ordered RT Aerosol Therapy [RC] ASDIRECTED Care 01/05/20 10:46 Active RT Aerosol Therapy [RC] ASDIRECTED Care 01/05/20 10:46 Active RT Aerosol Therapy [RC] ASDIRECTED Care 01/05/20 16:40 Ordered RT Post Treatment Assessment [RC] Click to Edit Care 01/05/20 16:55 Ordered RT Pre-Treatment Assessment [RC] Click to Edit Care 01/05/20 16:55 Ordered Up With Assistance [RC] ASDIRECTED Care 01/05/20 16:38 Ordered VTE/DVT Education [RC] PER UNIT ROUTINE Care 01/05/20 16:38 Ordered Vital Signs [RC] Q4H Care 01/05/20 16:38 Ordered Heart Healthy Diet [DIET] Diet 01/05/20 Dinner Ordered CBC WITH AUTO DIFF [HEME] AM Lab 01/06/20 05:11 Ordered CBC WITH AUTO DIFF [HEME] AM Lab 01/07/20 05:11 Ordered CBC WITH AUTO DIFF [HEME] AM Lab 01/08/20 05:11 Ordered CBC WITH AUTO DIFF [HEME] AM Lab 01/09/20 05:11 Ordered COMPREHENSIVE METABOLIC PN,CMP [CHEM] AM Lab 01/06/20 05:11 Ordered COMPREHENSIVE METABOLIC PN,CMP [CHEM] AM Lab 01/07/20 05:11 Ordered COMPREHENSIVE METABOLIC PN,CMP [CHEM] AM Lab 01/08/20 05:11 Ordered COMPREHENSIVE METABOLIC PN,CMP [CHEM] AM Lab 01/09/20 05:11 Ordered CULTURE SPUTUM + SMEAR [RM] Stat Lab 01/05/20 16:38 Ordered CULTURE URINE [RM] Stat Lab 01/05/20 11:47 Received MAGNESIUM [CHEM] AM Lab 01/06/20 05:11 Ordered PHOSPHORUS [CHEM] AM Lab 01/06/20 05:11 Ordered Acetaminophen [TylenoL] Med 01/05/20 16:38 Ordered 650 mg PO Q4H PRN Albuterol/Ipratropium [DuoNeb 3.0-0.5 MG/3 ML] Med 01/05/20 16:38 Ordered 3 ml NEB Q4HRRT PRN Benzonatate [Tessalon Perles] Med 01/05/20 17:00 Ordered 100 mg PO Q6H Budesonide/Formoterol [Symbicort 160-4.5 MCG] Med 01/05/20 21:00 Ordered 1 inh INH Q12HR Codeine/guaiFENesin [Robitussin AC] Med 01/05/20 17:01 Active 5 ml PO BEDTIME PRN Docusate Sodium [Colace] Med 01/06/20 09:00 Ordered 100 mg PO DAILY Enoxaparin [Lovenox] Med 01/05/20 17:00 Ordered 40 mg SUBCUT Q24H Metoprolol Tartrate [Lopressor] Med 01/05/20 21:00 Ordered 25 mg PO BID Ondansetron [Zofran ODT] Med 01/05/20 16:38 Ordered 4 mg PO Q4H PRN Pantoprazole [ProTONIX] Med 01/06/20 09:00 Ordered 40 mg PO DAILY Pharmacy to Dose - Vancomycin Med 01/05/20 17:00 Ordered 1 dose .XX ASDIRECTED Piperacillin/Tazobactam [Piperacil-Tazobact] 4.5 gm Med 01/05/20 16:45 Ordered Sodium Chloride 0.9% [Normal Saline] 100 ml IV Q6H Sertraline [Zoloft] Med 01/05/20 21:00 Ordered 50 mg PO BEDTIME Sodium Chloride 0.9% [Saline Flush] Med 01/05/20 10:34 Active 10 ml FLUSH ASDIRECTED PRN Sodium Chloride 0.9% [Saline Flush] Med 01/05/20 10:34 Active 2.5 ml FLUSH ASDIRECTED PRN amLODIPine [Norvasc] Med 01/06/20 09:00 Ordered 5 mg PO DAILY Saline Lock Insert [OM.PC] Stat Oth 01/05/20 10:34 Ordered Sequential Compression Device [OM.PC] Per Unit Routine Oth 01/05/20 16:39 Ordered Resuscitation Status Routine Resus Stat 01/05/20 16:38 Ordered Medication Orders Acetaminophen (Tylenol) 650 mg PO Q4H PRN PRN Reason: Pain (Mild 1-3)/fever Albuterol/Ipratropium (Duoneb 3.0-0.5 Mg/3 Ml) 3 ml NEB Q4HRRT PRN PRN Reason: Shortness Of Breath/wheezing Amlodipine Besylate (Norvasc) 5 mg PO DAILY [place] Benzonatate (Tessalon Perles) 100 mg PO Q6H [place] Docusate Sodium (Colace) 100 mg PO DAILY [place] Enoxaparin Sodium (Lovenox) 40 mg SUBCUT Q24H [place] Guaifenesin/Codeine Phosphate (Robitussin Ac) 5 ml PO BEDTIME PRN PRN Reason: Cough Piperacillin Sod/Tazobactam (Sod 4.5 gm/ Sodium Chloride) 100 mls @ 100 mls/hr IV Q6H [facility] Metoprolol Tartrate (Lopressor) 25 mg PO BID [place] Ondansetron HCl (Zofran Odt) 4 mg PO Q4H PRN PRN Reason: nausea, able to take PO Pantoprazole Sodium (Protonix) 40 mg PO DAILY [place] Budesonide/Formoterol [ Symbicort 160-4.5 Mcg] 1 each INH Q12HR [place] Sertraline HCl (Zoloft) 50 mg PO BEDTIME [facility] Sodium Chloride (Saline Flush) 10 ml FLUSH ASDIRECTED PRN PRN Reason: Keep Vein Open Last Admin: 01/05/20 11:44 Dose: 10 ml Documented by: CATHERINE Sodium Chloride (Saline Flush) 2.5 ml FLUSH ASDIRECTED PRN PRN Reason: Keep Vein Open Last Admin: 01/05/20 11:44 Dose: 2.5 ml Documented by: CATHERINE Vancomycin HCl (Pharmacy To Dose - Vancomycin) 1 dose .XX ASDIRECTED [facility] Assessment/Plan Comment:: Plan: 79 y/o F admitted for pneumonia with worsening cough and s.o.b: 1.Pneumonia: no wbc count, afebrile, no changes from prev on CXR, new found infiltrates on CT-Angio. Recent admission-discharge was Dec 19. Therefore, treat for HAP, prev treated with doxy, will start on Vanc and Zosyn. Narrow abx based on sputum culture. 2. UTI: Subacute cystitis: asymptomatic, no hematuria, + nitrates and Esterase, will treat based on UC. 3. Mild Hyponatremia: continue to monitor with morning labs. 4. Mild Hypochloremia: continue to monitor with morning labs. 5. Elevated BUN: continue to monitor with morning labs. 6. PMHx: HTN, COPD, Orthostatic Hypotension- resume home medications admit to [facility], dvt ppx lovenox 40/ scd's, GI ppx pantoprazole 40, activity up with assistance, HH diet <Mally Ding - Last Filed: 01/10/20 12:41> H&P History of Present Illness - General Admit Problem/Dx: Admission Diagnosis/Problem Admission Diagnosis/Problem Pneumonia Exam - Vital Signs Vital Signs: Last Vital Signs Temp 36.5 C 01/07/20 11:00 Pulse 65 01/07/20 11:00 Resp 20 01/07/20 11:00 BP 157/60 H 01/07/20 11:00 Pulse Ox 92 L 01/07/20 11:00 - Patient Data Result Diagrams: 01/07/20 05:08 01/07/20 05:08 Assessment/Plan Comment:: I performed a history and physical exam of the patient and discussed management with resident. I have reviewed the residents note and agree with documented findings and plan unless otherwise specified in my note.
[2020-01-05] MEDS: Piperacillin/Tazobactam 4.5 GM in Sodium Chloride 0.9% 100 ML IV SCH ×2 (17:56→22:55)
[2020-01-05] MEDS: Benzonatate 100 MG Cap PO SCH ×2 (17:57→22:56)
[2020-01-05] MEDS: Metoprolol Tartrate 25 MG Tab PO SCH (20:48)
[2020-01-05] MEDS: Budesonide/Formoterol [Symbicort 160-4.5 Mcg] INH SCH (20:49)
[2020-01-05] MEDS: Sertraline 50 MG Tab PO SCH (20:49)
[2020-01-06] MEDS: Benzonatate 100 MG Cap PO SCH ×3 (04:11→17:09)
[2020-01-06] MEDS: Piperacillin/Tazobactam 4.5 GM in Sodium Chloride 0.9% 100 ML IV SCH ×2 (04:11→10:22)
[2020-01-06 06:25] LABS: CARBON DIOXIDE,CO2 25.3 mmol/L (21.0-32.0); POTASSIUM,K 3.9 mmol/L (3.5-5.1)
[2020-01-06] MEDS: Docusate Sodium 100 MG Cap PO SCH (10:21)
[2020-01-06] MEDS: amLODIPine 5 MG Tab PO SCH (10:21)
[2020-01-06] MEDS: Metoprolol Tartrate 25 MG Tab PO SCH ×2 (10:22→20:21)
[2020-01-06] MEDS: Pantoprazole 40 MG Tab.CR PO SCH (10:22)
[2020-01-06] MEDS: Budesonide/Formoterol [Symbicort 160-4.5 Mcg] INH SCH ×2 (10:26→22:09)
[2020-01-06] MEDS ORDERED: Levofloxacin/Dextrose 5%-Water 750 MG in Premix Bag 1 BAG IV SCH (12:00)
--- NOTE | 2020-01-06 14:18 | PCM.PN ---
- General Info Date of Service: 01/06/20 Admission Dx/Problem (Free Text): Admission Diagnosis/Problem Admission Diagnosis/Problem COPD with acute lower respiratory infection Subjective Update: Pt is a marcial 79 y/o F with PMHx of HTN, COPD, Orthostatic Hypotension, anxiety and depression. Was admitted last night for Pneumonia and UTI. Slept well overnight, and states she is feeling much better this morning. Was seen at bedside this morning eating her breakfast comfortably. Functional Status: Reports: Tolerating Diet - Review of Systems General: Reports: No Symptoms HEENT: Reports: No Symptoms Pulmonary: Reports: Cough, Sputum. Denies: Shortness of Breath, Pleuritic Chest Pain Cardiovascular: Reports: No Symptoms Gastrointestinal: Reports: No Symptoms Genitourinary: Reports: No Symptoms Musculoskeletal: Reports: No Symptoms Skin: Reports: No Symptoms Neurological: Reports: No Symptoms Psychiatric: Reports: No Symptoms - Patient Data Vitals - Most Recent: Last Vital Signs Temp 96.5 F L 01/06/20 12:00 Pulse 70 01/06/20 12:00 Resp 16 01/06/20 12:00 BP 134/65 01/06/20 12:00 Pulse Ox 94 L 01/06/20 12:00 Weight - Most Recent: 80 lb I&O - Last 24 Hours: Intake & Output 01/05/20 01/06/20 01/06/20 22:59 06:59 14:59 Intake Total 800 350 Output Total 2100 Balance -1300 350 Lab Results Last 24 Hours: Laboratory Results - last 24 hr 01/06/20 01/06/20 Range/Units 05:56 05:56 WBC 8.18 (4.0-11.0) K/uL RBC 3.85 L (4.30-5.90) M/uL Hgb 11.2 L (12.0-16.0) g/dL Hct 34.1 L (36.0-46.0) % MCV 88.6 (80.0-98.0) fL MCH 29.1 (27.0-32.0) pg MCHC 32.8 (31.0-37.0) g/dL RDW Std Deviation 48.2 (28.0-62.0) fl RDW Coeff of Kiet 15 (11.0-15.0) % Plt Count 280 (150-400) K/uL MPV 9.20 (7.40-12.00) fL Neut % (Auto) 85.8 H (48.0-80.0) % Lymph % (Auto) 8.4 L (16.0-40.0) % Buchanan % (Auto) 5.3 (0.0-15.0) % Eos % (Auto) 0.4 (0.0-7.0) % Baso % (Auto) 0.1 (0.0-1.5) % Neut # (Auto) 7.0 H (1.4-5.7) K/uL Lymph # (Auto) 0.7 (0.6-2.4) K/uL Buchanan # (Auto) 0.4 (0.0-0.8) K/uL Eos # (Auto) 0.0 (0.0-0.7) K/uL Baso # (Auto) 0.0 (0.0-0.1) K/uL Nucleated RBC % 0.0 /100WBC Nucleated RBCs # 0 K/uL Sodium 131 L (136-145) mmol/L Potassium 3.9 (3.5-5.1) mmol/L Chloride 99 (98-107) mmol/L Carbon Dioxide 25.3 (21.0-32.0) mmol/L BUN 20 H (7.0-18.0) mg/dL Creatinine 1.0 (0.6-1.0) mg/dL Est Cr Clr Drug Dosing 26.99 mL/min Estimated GFR (MDRD) 53.8 ml/min Glucose 119 H (74-106) mg/dL Calcium 7.6 L (8.5-10.1) mg/dL Phosphorus 2.4 L (2.6-4.7) mg/dL Magnesium 1.9 (1.8-2.4) mg/dL Total Bilirubin 0.5 (0.2-1.0) mg/dL AST 19 (15-37) IU/L ALT 23 (14-63) IU/L Alkaline Phosphatase 62 (46-116) U/L Total Protein 6.0 L (6.4-8.2) g/dL Albumin 3.0 L (3.4-5.0) g/dL Globulin 3.0 (2.6-4.0) g/dL Albumin/Globulin Ratio 1.0 (0.9-1.6) Wilner Results Last 24 Hours: Microbiology 01/05/20 19:30 Gram Stain - Preliminary Sputum - Expectorated Med Orders - Current: Current Medications Acetaminophen (Tylenol) 650 mg PO Q4H PRN PRN Reason: Pain (Mild 1-3)/fever Albuterol/Ipratropium (Duoneb 3.0-0.5 Mg/3 Ml) 3 ml NEB Q4HRRT PRN PRN Reason: Shortness Of Breath/wheezing Amlodipine Besylate (Norvasc) 5 mg PO DAILY [facility] Last Admin: 01/06/20 10:21 Dose: 5 mg Documented by: Benzonatate (Tessalon Perles) 100 mg PO Q6H [facility] Last Admin: 01/06/20 10:22 Dose: 100 mg Documented by: Docusate Sodium (Colace) 100 mg PO DAILY [facility] Last Admin: 01/06/20 10:21 Dose: 100 mg Documented by: Enoxaparin Sodium (Lovenox) 30 mg SUBCUT Q24H [facility] Guaifenesin/Codeine Phosphate (Robitussin Ac) 5 ml PO BEDTIME PRN PRN Reason: Cough Levofloxacin/Dextrose 750 mg/ (Premix) 150 mls @ 100 mls/hr IV Q48H [facility] Last Admin: 01/06/20 13:28 Dose: 100 mls/hr Documented by: Metoprolol Tartrate (Lopressor) 25 mg PO BID [facility] Last Admin: 01/06/20 10:22 Dose: 25 mg Documented by: Ondansetron HCl (Zofran Odt) 4 mg PO Q4H PRN PRN Reason: nausea, able to take PO Pantoprazole Sodium (Protonix) 40 mg PO DAILY [facility] Last Admin: 01/06/20 10:22 Dose: 40 mg Documented by: Budesonide/Formoterol [ Symbicort 160-4.5 Mcg] 1 each INH Q12HR [facility] Last Admin: 01/06/20 10:26 Dose: Not Given Documented by: Sertraline HCl (Zoloft) 50 mg PO BEDTIME [facility] Last Admin: 01/05/20 20:49 Dose: 50 mg Documented by: Sodium Chloride (Saline Flush) 10 ml FLUSH ASDIRECTED PRN PRN Reason: Keep Vein Open Last Admin: 01/05/20 11:44 Dose: 10 ml Documented by: Sodium Chloride (Saline Flush) 2.5 ml FLUSH ASDIRECTED PRN PRN Reason: Keep Vein Open Last Admin: 01/05/20 11:44 Dose: 2.5 ml Documented by: Vancomycin HCl (Pharmacy To Dose - Vancomycin) 1 dose .XX ASDIRECTED [place] Discontinued Medications Albuterol/Ipratropium (Duoneb 3.0-0.5 Mg/3 Ml) 3 ml NEB ONETIME ONE Stop: 01/05/20 10:47 Last Admin: 01/05/20 11:37 Dose: 3 ml Documented by: Albuterol/Ipratropium (Duoneb 3.0-0.5 Mg/3 Ml) 3 ml NEB ONETIME ONE Stop: 01/05/20 10:47 Last Admin: 01/05/20 11:37 Dose: 3 ml Documented by: Enoxaparin Sodium (Lovenox) 40 mg SUBCUT Q24H [facility] Last Admin: 01/05/20 17:56 Dose: 40 mg Documented by: Ceftriaxone Sodium/Dextrose 1 (gm/ Premix) 50 mls @ 100 mls/hr IV ONETIME ONE Stop: 01/05/20 13:54 Last Admin: 01/05/20 14:53 Dose: 100 mls/hr Documented by: Sodium Chloride (Normal Saline) 1,000 mls @ 750 mls/hr IV STAT ONE Stop: 01/05/20 17:04 Last Admin: 01/05/20 16:12 Dose: 750 mls/hr Documented by: Piperacillin Sod/Tazobactam (Sod 4.5 gm/ Sodium Chloride) 100 mls @ 100 mls/hr IV Q6H [facility] Last Admin: 01/06/20 10:22 Dose: 100 mls/hr Documented by: Vancomycin HCl 500 mg/ Sodium (Chloride) 100 mls @ 100 mls/hr IV Q24H [facility] Last Admin: 01/05/20 19:29 Dose: 100 mls/hr Documented by: Iopamidol (Isovue Multipack-370 (76%)) 50 ml IVPUSH ONETIME STA Stop: 01/05/20 14:50 Last Admin: 01/05/20 14:49 Dose: 50 ml Documented by: Methylprednisolone Sodium Succinate (Solu-Medrol) 125 mg IVPUSH ONETIME ONE Stop: 01/05/20 10:47 Last Admin: 01/05/20 11:44 Dose: 125 mg Documented by: Non-Formulary Medication (Codeine Phosphate/Guaifenesin [Guaifen-Codeine 200-20 Mg/10ml]) 5 ml PO BEDTIME PRN PRN Reason: Cough - Exam Quality Assessment: DVT Prophylaxis General: Alert, Oriented, Cooperative, No Acute Distress HEENT: Pupils Equal, Pupils Reactive, EOMI, Mucous Membr. Moist/[place] Neck: Supple, No JVD. No: Lymphadenopathy Lungs: Normal Respiratory Effort, Crackles (fine crackles lower lobes bilaterally ) Cardiovascular: Regular Rate, Regular Rhythm, No Murmurs GI/Abdominal Exam: Normal Bowel Sounds, Soft, Non-Tender. No: No Organomegaly, No Distention, Guarding, Rigid, Rebound Back Exam: Other (no suprapubic tenderness). No: CVA Tenderness (L), CVA Tenderness (R) Peripheral Pulses: 2+: Radial (L), Radial (R), Dorsalis Pedis (L), Dorsalis Pedis (R) Skin: Warm, Dry, Intact Neurological: No New Focal Deficit Psy/Mental Status: Alert, Normal Affect, Normal Mood Sepsis Event Note - Evaluation Sepsis Screening Result: No Definite Risk - Focused Exam Vital Signs: Vital Signs Temp Pulse Pulse Resp BP BP BP 01/06/20 12:00 96.5 F L 70 16 134/65 01/06/20 10:22 75 157/56 H 01/06/20 10:21 157/56 H 01/06/20 08:00 98.3 F 75 18 157/56 H 01/06/20 04:39 97.2 F 70 16 178/72 H Pulse Ox 01/06/20 12:00 94 L 01/06/20 10:22 01/06/20 10:21 01/06/20 08:00 94 L 01/06/20 04:39 93 L - Problem List & Annotations (1) Pneumonia SNOMED Code(s): 910031306 Code(s): J18.9 - PNEUMONIA, UNSPECIFIED ORGANISM Status: Acute Current Visit: Yes (2) Orthostatic hypotension SNOMED Code(s): 75053633 Code(s): I95.1 - ORTHOSTATIC HYPOTENSION Status: Chronic Current Visit: No (3) Elevated BUN SNOMED Code(s): 543619741 Code(s): R79.9 - ABNORMAL FINDING OF BLOOD CHEMISTRY, UNSPECIFIED Status: Acute Current Visit: No (4) Hypertension SNOMED Code(s): 88769788 Code(s): I10 - ESSENTIAL (PRIMARY) HYPERTENSION Status: Chronic Current Visit: No (5) Urinary tract infection SNOMED Code(s): 39035536 Code(s): N39.0 - URINARY TRACT INFECTION, SITE NOT SPECIFIED Status: Acute Current Visit: Yes Qualifiers: Urinary tract infection type: acute cystitis Hematuria presence: without hematuria Qualified Code(s): N30.00 - Acute cystitis without hematuria - Problem List Review Problem List Initiated/Reviewed/Updated: Yes - My Orders Last 24 Hours: My Active Orders 01/05/20 Dinner Heart Healthy Diet [DIET] Heart Healthy Diet [DIET] 01/05/20 16:38 Oxygen Therapy [RC] PRN Pulse Oximetry [RC] CONTINUOUS Up With Assistance [RC] ASDIRECTED VTE/DVT Education [RC] PER UNIT ROUTINE Vital Signs [RC] Q4H Acetaminophen [TylenoL] 650 mg PO Q4H PRN Albuterol/Ipratropium [DuoNeb 3.0-0.5 MG/3 ML] 3 ml NEB Q4HRRT PRN Ondansetron [Zofran ODT] 4 mg PO Q4H PRN Resuscitation Status Routine 01/05/20 16:39 Antiembolic Devices [RC] PER UNIT ROUTINE Sequential Compression Device [OM.PC] Per Unit Routine 01/05/20 16:40 RT Aerosol Therapy [RC] ASDIRECTED 01/05/20 16:55 RT Post Treatment Assessment [RC] Click to Edit RT Pre-Treatment Assessment [RC] Click to Edit 01/05/20 17:00 Benzonatate [Tessalon Perles] 100 mg PO Q6H Pharmacy to Dose - Vancomycin 1 dose .XX ASDIRECTED 01/05/20 17:01 Codeine/guaiFENesin [Robitussin AC] 5 ml PO BEDTIME PRN 01/05/20 18:11 Telemetry Monitoring [Cardiac Monitoring] [RC] Q8H 01/05/20 18:14 Up With Assistance [RC] ASDIRECTED 01/05/20 18:15 Patient Status [ADT] Routine Oxygen Therapy [RC] PRN Pulse Oximetry [RC] CONTINUOUS VTE/DVT Education [RC] PER UNIT ROUTINE Vital Signs [RC] Q4H Sequential Compression Device [OM.PC] Per Unit Routine 01/05/20 18:16 Antiembolic Devices [RC] PER UNIT ROUTINE 01/05/20 19:30 CULTURE SPUTUM + SMEAR [RM] Stat 01/05/20 21:00 Metoprolol Tartrate [Lopressor] 25 mg PO BID Patient's Own Medication [Ptom] 1 each INH Q12HR Sertraline [Zoloft] 50 mg PO BEDTIME 01/06/20 09:00 Docusate Sodium [Colace] 100 mg PO DAILY Pantoprazole [ProTONIX] 40 mg PO DAILY amLODIPine [Norvasc] 5 mg PO DAILY 01/06/20 12:00 Levofloxacin/Dextrose 5%-Water [Levaquin in D5W 750 MG/150 ML] 750 mg Premix Bag 1 bag IV Q48H 01/06/20 18:00 Enoxaparin [Lovenox] 30 mg SUBCUT Q24H 01/07/20 05:11 CBC WITH AUTO DIFF [HEME] AM COMPREHENSIVE METABOLIC PN,CMP [CHEM] AM 01/08/20 05:11 CBC WITH AUTO DIFF [HEME] AM COMPREHENSIVE METABOLIC PN,CMP [CHEM] AM 01/09/20 05:11 CBC WITH AUTO DIFF [HEME] AM COMPREHENSIVE METABOLIC PN,CMP [CHEM] AM - Plan Plan:: Plan: 79 y/o F admitted for pneumonia with worsening cough and s.o.b: 1.Pneumonia: no wbc count, afebrile, no changes from prev on CXR, new found infiltrates on CT-Angio. Recent admission-discharge was Dec 19. Therefore, treat for HCAP; prev treated with doxy -This admission was started on Vanc and Zosyn. Sputum culture indicated lots of wbc's and gram neg rods. Will d/c vanc and zosyn and start Levaquin for 7 days renally dosed. 2. UTI: Subacute cystitis: asymptomatic, no hematuria, + nitrates and Esterase, will not treat since asymptomatic, and no indication per Uptodate. 3. Mild Hyponatremia: stable, continue to monitor with morning labs. 4. Mild Hypochloremia: resolved, continue to monitor with morning labs. 5. Elevated BUN: improved, continue to monitor with morning labs. 6. PMHx: HTN, COPD, Orthostatic Hypotension- resume home medications admit to medsurg, dvt ppx lovenox 40/ scd's, GI ppx pantoprazole 40, activity up with assistance, HH diet
[2020-01-06] MEDS ORDERED: Enoxaparin 30 MG/0.3 ML Syringe SUBCUT SCH (18:00)
[2020-01-06] MEDS: Sertraline 50 MG Tab PO SCH (20:23)
[2020-01-07] MEDS: Benzonatate 100 MG Cap PO SCH ×3 (00:23→11:59)
[2020-01-07 06:21] LABS: CARBON DIOXIDE,CO2 25.4 mmol/L (21.0-32.0)
[2020-01-07] MEDS: Pantoprazole 40 MG Tab.CR PO SCH (08:03)
[2020-01-07] MEDS: Metoprolol Tartrate 25 MG Tab PO SCH (08:03)
[2020-01-07] MEDS: Docusate Sodium 100 MG Cap PO SCH (08:03)
[2020-01-07] MEDS: amLODIPine 5 MG Tab PO SCH (08:03)
[2020-01-07] MEDS: Budesonide/Formoterol [Symbicort 160-4.5 Mcg] INH SCH (09:07)
[2020-01-07] MEDS: Sodium Chloride 0.9% 2.5 ML Syringe FLUSH PRN (09:50)
[2020-01-07 11:01] VITALS: BP 157/60; PULSE 65
--- NOTE | 2020-01-07 11:30 | PCM.DCSUM1 ---
<Talia May - Last Filed: 01/07/20 13:42> Discharge Summary - Hospital Course Brief History: Pt is a 79 y/o F with PMHx of HTN, COPD, Orthostatic Hypotension. Returns to hospital today with complaints of worsening cough, s.o.b. States that it improved in the ED after a breathing treatment was administered. Complained of some intermittent chest pain, states it started today, on the upper left side, 4/10 on the pain scale, dose not radiate anywhere. In the ER EKG and Troponins were normal. D. Dimer was elevated; CTA ruled out any PE but demonstrated developing possible infiltrates bilaterally. Furthermore, pt denies any fever, chills, nausea, vomiting, sick contacts, travel. Denies any alleviating or aggravating factors. Pt was previoulsy admitted with a COPD exacerbation, sent home with abx, which she completed the course of and has been consistently compliant with her home medications. Diagnosis: Stroke: No - Discharge Data Discharge Date: 01/07/20 Discharge Disposition: Home, Home Health Agency Condition: Good - Referral to Home Health Date of Face to Face Encounter: 01/07/20 Reason for Homebound Status: resume Primary Care Physician: Erasmo Wiley MD Skilled Need: resume - Discharge Diagnosis/Problem(s) (1) Pneumonia SNOMED Code(s): 910197005 ICD Code: J18.9 - PNEUMONIA, UNSPECIFIED ORGANISM Status: Acute (2) Orthostatic hypotension SNOMED Code(s): 07958668 ICD Code: I95.1 - ORTHOSTATIC HYPOTENSION Status: Chronic (3) Elevated BUN SNOMED Code(s): 121233681 ICD Code: R79.9 - ABNORMAL FINDING OF BLOOD CHEMISTRY, UNSPECIFIED Status: Acute (4) Hypertension SNOMED Code(s): 36291138 ICD Code: I10 - ESSENTIAL (PRIMARY) HYPERTENSION Status: Chronic (5) Urinary tract infection SNOMED Code(s): 68229897 ICD Code: N39.0 - URINARY TRACT INFECTION, SITE NOT SPECIFIED Status: Acute Qualifiers: Urinary tract infection type: acute cystitis Hematuria presence: without hematuria Qualified Code(s): N30.00 - Acute cystitis without hematuria - Patient Summary/Data Hospital Course: Treated for HCAP pneumonia with Levaquin, symptoms improved. Pt states she feels much better therefore will discharge home with course for 5 days. Pt is to closely follow up with PCP. Home health has been resumed. - Patient Instructions Diet: Heart Healthy Diet Activity: As Tolerated - Discharge Plan *PRESCRIPTION DRUG MONITORING PROGRAM REVIEWED*: Not Applicable *COPY OF PRESCRIPTION DRUG MONITORING REPORT IN PATIENT CHRISTIAN: Not Applicable Prescriptions/Med Rec: levoFLOXacin [Levaquin] 750 mg PO Q48H 5 Days #5 tab Home Medications: Home Meds Metoprolol Tartrate 25 mg PO BID 02/18/15 [History] Sertraline [Zoloft] 50 mg PO BEDTIME 02/18/15 [History] Albuterol [Ventolin HFA] 1 puff INH BID 12/18/19 [History] Budesonide/Formoterol [Symbicort 160-4.5 MCG] 1 inh INH Q12HR 12/18/19 [History] Codeine Phosphate/Guaifenesin [Guaifen-Codeine 200-20 mg/10Ml] 5 ml PO BEDTIME PRN 12/18/19 [History] Ipratropium/Albuterol Sulfate [Iprat-Albut 0.5-3(2.5) MG/3 ML] 3 ml IH Q6HR PRN 12/18/19 [History] amLODIPine [Norvasc] 5 mg PO DAILY 12/18/19 [History] Albuterol/Ipratropium [DuoNeb 3.0-0.5 MG/3 ML] 3 ml NEB Q6HRRT neb 12/22/19 [Rx] Benzonatate [Tessalon Perle] 100 mg PO Q6H #40 capsule 12/22/19 [Rx] Docusate Sodium [Colace] 100 mg PO DAILY #30 cap 12/22/19 [Rx] Albuterol/Ipratropium [DuoNeb 3.0-0.5 MG/3 ML] 3 ml NEB Q4HRRT PRN neb 01/07/20 [Rx] levoFLOXacin [Levaquin] 750 mg PO Q48H 5 Days #5 tab 01/07/20 [Rx] Oxygen Therapy Mode: Room Air Patient Handouts: Chronic Obstructive Pulmonary Disease, [id number], Levofloxacin tablets, Community-Acquired Pneumonia, Adult, [id number] Referrals: Erasmo Wiley MD [Primary Care Provider] - 01/24/20 2:30 pm - Discharge Summary/Plan Comment DC Time >30 min.: No - Patient Data Vitals - Most Recent: Last Vital Signs Temp 97.7 F 01/07/20 11:00 Pulse 65 01/07/20 11:00 Resp 20 01/07/20 11:00 BP 157/60 H 01/07/20 11:00 Pulse Ox 92 L 01/07/20 11:00 Weight - Most Recent: 36.287 kg I&O - Last 24 hours: Intake & Output 01/06/20 01/07/20 01/07/20 22:59 06:59 14:59 Intake Total 400 650 Output Total 1300 1420 Balance -900 -770 Lab Results - Last 24 hrs: Laboratory Results - last 24 hr 01/07/20 01/07/20 Range/Units 05:08 05:08 WBC 8.39 (4.0-11.0) K/uL RBC 4.23 L (4.30-5.90) M/uL Hgb 12.5 (12.0-16.0) g/dL Hct 38.2 (36.0-46.0) % MCV 90.3 (80.0-98.0) fL MCH 29.6 (27.0-32.0) pg MCHC 32.7 (31.0-37.0) g/dL RDW Std Deviation 49.7 (28.0-62.0) fl RDW Coeff of Kiet 15 (11.0-15.0) % Plt Count 317 (150-400) K/uL MPV 9.50 (7.40-12.00) fL Neut % (Auto) 72.8 (48.0-80.0) % Lymph % (Auto) 13.5 L (16.0-40.0) % Schleicher % (Auto) 7.5 (0.0-15.0) % Eos % (Auto) 6.0 (0.0-7.0) % Baso % (Auto) 0.2 (0.0-1.5) % Neut # (Auto) 6.1 H (1.4-5.7) K/uL Lymph # (Auto) 1.1 (0.6-2.4) K/uL Schleicher # (Auto) 0.6 (0.0-0.8) K/uL Eos # (Auto) 0.5 (0.0-0.7) K/uL Baso # (Auto) 0.0 (0.0-0.1) K/uL Nucleated RBC % 0.0 /100WBC Nucleated RBCs # 0 K/uL Sodium 133 L (136-145) mmol/L Potassium 4.0 (3.5-5.1) mmol/L Chloride 101 (98-107) mmol/L Carbon Dioxide 25.4 (21.0-32.0) mmol/L BUN 16 (7.0-18.0) mg/dL Creatinine 1.1 H (0.6-1.0) mg/dL Est Cr Clr Drug Dosing 24.53 mL/min Estimated GFR (MDRD) 48.2 ml/min Glucose 75 (74-106) mg/dL Calcium 7.9 L (8.5-10.1) mg/dL Total Bilirubin 0.4 (0.2-1.0) mg/dL AST 20 (15-37) IU/L ALT 25 (14-63) IU/L Alkaline Phosphatase 58 (46-116) U/L Total Protein 6.4 (6.4-8.2) g/dL Albumin 3.2 L (3.4-5.0) g/dL Globulin 3.2 (2.6-4.0) g/dL Albumin/Globulin Ratio 1.0 (0.9-1.6) ZACK Results - Last 24 hrs: Microbiology 01/05/20 19:30 Gram Stain - Preliminary Sputum - Expectorated Sputum Culture - Preliminary 01/05/20 11:47 Urine Culture - Final Urine, Clean Catch Proteus Mirabilis Med Orders - Current: Current Medications Acetaminophen (Tylenol) 650 mg PO Q4H PRN PRN Reason: Pain (Mild 1-3)/fever Albuterol/Ipratropium (Duoneb 3.0-0.5 Mg/3 Ml) 3 ml NEB Q4HRRT PRN PRN Reason: Shortness Of Breath/wheezing Amlodipine Besylate (Norvasc) 5 mg PO DAILY [facility] Last Admin: 01/07/20 08:03 Dose: 5 mg Documented by: Benzonatate (Tessalon Perles) 100 mg PO Q6H [facility] Last Admin: 01/07/20 04:14 Dose: 100 mg Documented by: Docusate Sodium (Colace) 100 mg PO DAILY [facility] Last Admin: 01/07/20 08:03 Dose: 100 mg Documented by: Enoxaparin Sodium (Lovenox) 30 mg SUBCUT Q24H [facility] Last Admin: 01/06/20 17:09 Dose: 30 mg Documented by: Guaifenesin/Codeine Phosphate (Robitussin Ac) 5 ml PO BEDTIME PRN PRN Reason: Cough Levofloxacin/Dextrose 750 mg/ (Premix) 150 mls @ 100 mls/hr IV Q48H [facility] Last Admin: 01/06/20 13:28 Dose: 100 mls/hr Documented by: Metoprolol Tartrate (Lopressor) 25 mg PO BID [facility] Last Admin: 01/07/20 08:03 Dose: 25 mg Documented by: Ondansetron HCl (Zofran Odt) 4 mg PO Q4H PRN PRN Reason: nausea, able to take PO Pantoprazole Sodium (Protonix) 40 mg PO DAILY [facility] Last Admin: 01/07/20 08:03 Dose: 40 mg Documented by: Budesonide/Formoterol [ Symbicort 160-4.5 Mcg] 1 each INH Q12HR [facility] Last Admin: 01/07/20 09:07 Dose: Not Given Documented by: Sertraline HCl (Zoloft) 50 mg PO BEDTIME [facility] Last Admin: 01/06/20 20:23 Dose: 50 mg Documented by: Sodium Chloride (Saline Flush) 10 ml FLUSH ASDIRECTED PRN PRN Reason: Keep Vein Open Last Admin: 01/05/20 11:44 Dose: 10 ml Documented by: Sodium Chloride (Saline Flush) 2.5 ml FLUSH ASDIRECTED PRN PRN Reason: Keep Vein Open Last Admin: 01/07/20 09:50 Dose: 2.5 ml Documented by: Vancomycin HCl (Pharmacy To Dose - Vancomycin) 1 dose .XX ASDIRECTED [facility] Discontinued Medications Albuterol/Ipratropium (Duoneb 3.0-0.5 Mg/3 Ml) 3 ml NEB ONETIME ONE Stop: 01/05/20 10:47 Last Admin: 01/05/20 11:37 Dose: 3 ml Documented by: Albuterol/Ipratropium (Duoneb 3.0-0.5 Mg/3 Ml) 3 ml NEB ONETIME ONE Stop: 01/05/20 10:47 Last Admin: 01/05/20 11:37 Dose: 3 ml Documented by: Enoxaparin Sodium (Lovenox) 40 mg SUBCUT Q24H [facility] Last Admin: 01/05/20 17:56 Dose: 40 mg Documented by: Ceftriaxone Sodium/Dextrose 1 (gm/ Premix) 50 mls @ 100 mls/hr IV ONETIME ONE Stop: 01/05/20 13:54 Last Admin: 01/05/20 14:53 Dose: 100 mls/hr Documented by: Sodium Chloride (Normal Saline) 1,000 mls @ 750 mls/hr IV STAT ONE Stop: 01/05/20 17:04 Last Admin: 01/05/20 16:12 Dose: 750 mls/hr Documented by: Piperacillin Sod/Tazobactam (Sod 4.5 gm/ Sodium Chloride) 100 mls @ 100 mls/hr IV Q6H [facility] Last Admin: 01/06/20 10:22 Dose: 100 mls/hr Documented by: Vancomycin HCl 500 mg/ Sodium (Chloride) 100 mls @ 100 mls/hr IV Q24H [facility] Last Admin: 01/05/20 19:29 Dose: 100 mls/hr Documented by: Iopamidol (Isovue Multipack-370 (76%)) 50 ml IVPUSH ONETIME STA Stop: 01/05/20 14:50 Last Admin: 01/05/20 14:49 Dose: 50 ml Documented by: Methylprednisolone Sodium Succinate (Solu-Medrol) 125 mg IVPUSH ONETIME ONE Stop: 01/05/20 10:47 Last Admin: 01/05/20 11:44 Dose: 125 mg Documented by: Non-Formulary Medication (Codeine Phosphate/Guaifenesin [Guaifen-Codeine 200-20 Mg/10ml]) 5 ml PO BEDTIME PRN PRN Reason: Cough <Shekhar Antonio - Last Filed: 01/07/20 21:48> Discharge Summary - Referral to Home Health Date of Face to Face Encounter: 01/07/20 Reason for Homebound Status: resume Primary Care Physician: Erasmo Wiley MD Skilled Need: resume - Patient Data Vitals - Most Recent: Last Vital Signs Temp 36.5 C 01/07/20 11:00 Pulse 65 01/07/20 11:00 Resp 20 01/07/20 11:00 BP 157/60 H 01/07/20 11:00 Pulse Ox 92 L 01/07/20 11:00 I&O - Last 24 hours: Intake & Output 01/07/20 01/07/20 01/07/20 06:59 14:59 22:59 Intake Total 650 450 Output Total 1420 450 Balance -770 0 Lab Results - Last 24 hrs: Laboratory Results - last 24 hr 01/07/20 01/07/20 Range/Units 05:08 05:08 WBC 8.39 (4.0-11.0) K/uL RBC 4.23 L (4.30-5.90) M/uL Hgb 12.5 (12.0-16.0) g/dL Hct 38.2 (36.0-46.0) % MCV 90.3 (80.0-98.0) fL MCH 29.6 (27.0-32.0) pg MCHC 32.7 (31.0-37.0) g/dL RDW Std Deviation 49.7 (28.0-62.0) fl RDW Coeff of Kiet 15 (11.0-15.0) % Plt Count 317 (150-400) K/uL MPV 9.50 (7.40-12.00) fL Neut % (Auto) 72.8 (48.0-80.0) % Lymph % (Auto) 13.5 L (16.0-40.0) % Schleicher % (Auto) 7.5 (0.0-15.0) % Eos % (Auto) 6.0 (0.0-7.0) % Baso % (Auto) 0.2 (0.0-1.5) % Neut # (Auto) 6.1 H (1.4-5.7) K/uL Lymph # (Auto) 1.1 (0.6-2.4) K/uL Schleicher # (Auto) 0.6 (0.0-0.8) K/uL Eos # (Auto) 0.5 (0.0-0.7) K/uL Baso # (Auto) 0.0 (0.0-0.1) K/uL Nucleated RBC % 0.0 /100WBC Nucleated RBCs # 0 K/uL Sodium 133 L (136-145) mmol/L Potassium 4.0 (3.5-5.1) mmol/L Chloride 101 (98-107) mmol/L Carbon Dioxide 25.4 (21.0-32.0) mmol/L BUN 16 (7.0-18.0) mg/dL Creatinine 1.1 H (0.6-1.0) mg/dL Est Cr Clr Drug Dosing 24.53 mL/min Estimated GFR (MDRD) 48.2 ml/min Glucose 75 (74-106) mg/dL Calcium 7.9 L (8.5-10.1) mg/dL Total Bilirubin 0.4 (0.2-1.0) mg/dL AST 20 (15-37) IU/L ALT 25 (14-63) IU/L Alkaline Phosphatase 58 (46-116) U/L Total Protein 6.4 (6.4-8.2) g/dL Albumin 3.2 L (3.4-5.0) g/dL Globulin 3.2 (2.6-4.0) g/dL Albumin/Globulin Ratio 1.0 (0.9-1.6) ZACK Results - Last 24 hrs: Microbiology 01/05/20 19:30 Gram Stain - Preliminary Sputum - Expectorated Sputum Culture - Preliminary 01/05/20 11:47 Urine Culture - Final Urine, Clean Catch Proteus Mirabilis Med Orders - Current: Current Medications Discontinued Medications Acetaminophen (Tylenol) 650 mg PO Q4H PRN PRN Reason: Pain (Mild 1-3)/fever Albuterol/Ipratropium (Duoneb 3.0-0.5 Mg/3 Ml) 3 ml NEB ONETIME ONE Stop: 01/05/20 10:47 Last Admin: 01/05/20 11:37 Dose: 3 ml Documented by: Albuterol/Ipratropium (Duoneb 3.0-0.5 Mg/3 Ml) 3 ml NEB ONETIME ONE Stop: 01/05/20 10:47 Last Admin: 01/05/20 11:37 Dose: 3 ml Documented by: Albuterol/Ipratropium (Duoneb 3.0-0.5 Mg/3 Ml) 3 ml NEB Q4HRRT PRN PRN Reason: Shortness Of Breath/wheezing Amlodipine Besylate (Norvasc) 5 mg PO DAILY [facility] Last Admin: 01/07/20 08:03 Dose: 5 mg Documented by: Benzonatate (Tessalon Perles) 100 mg PO Q6H [facility] Last Admin: 01/07/20 11:59 Dose: 100 mg Documented by: Docusate Sodium (Colace) 100 mg PO DAILY [facility] Last Admin: 01/07/20 08:03 Dose: 100 mg Documented by: Enoxaparin Sodium (Lovenox) 40 mg SUBCUT Q24H [facility] Last Admin: 01/05/20 17:56 Dose: 40 mg Documented by: Enoxaparin Sodium (Lovenox) 30 mg SUBCUT Q24H [facility] Last Admin: 01/06/20 17:09 Dose: 30 mg Documented by: Guaifenesin/Codeine Phosphate (Robitussin Ac) 5 ml PO BEDTIME PRN PRN Reason: Cough Ceftriaxone Sodium/Dextrose 1 (gm/ Premix) 50 mls @ 100 mls/hr IV ONETIME ONE Stop: 01/05/20 13:54 Last Admin: 01/05/20 14:53 Dose: 100 mls/hr Documented by: Sodium Chloride (Normal Saline) 1,000 mls @ 750 mls/hr IV STAT ONE Stop: 01/05/20 17:04 Last Admin: 01/05/20 16:12 Dose: 750 mls/hr Documented by: Piperacillin Sod/Tazobactam (Sod 4.5 gm/ Sodium Chloride) 100 mls @ 100 mls/hr IV Q6H [facility] Last Admin: 01/06/20 10:22 Dose: 100 mls/hr Documented by: Vancomycin HCl 500 mg/ Sodium (Chloride) 100 mls @ 100 mls/hr IV Q24H [facility] Last Admin: 01/05/20 19:29 Dose: 100 mls/hr Documented by: Levofloxacin/Dextrose 750 mg/ (Premix) 150 mls @ 100 mls/hr IV Q48H [facility] Last Admin: 01/06/20 13:28 Dose: 100 mls/hr Documented by: Iopamidol (Isovue Multipack-370 (76%)) 50 ml IVPUSH ONETIME STA Stop: 01/05/20 14:50 Last Admin: 01/05/20 14:49 Dose: 50 ml Documented by: Methylprednisolone Sodium Succinate (Solu-Medrol) 125 mg IVPUSH ONETIME ONE Stop: 01/05/20 10:47 Last Admin: 01/05/20 11:44 Dose: 125 mg Documented by: Metoprolol Tartrate (Lopressor) 25 mg PO BID [facility] Last Admin: 01/07/20 08:03 Dose: 25 mg Documented by: Non-Formulary Medication (Codeine Phosphate/Guaifenesin [Guaifen-Codeine 200-20 Mg/10ml]) 5 ml PO BEDTIME PRN PRN Reason: Cough Ondansetron HCl (Zofran Odt) 4 mg PO Q4H PRN PRN Reason: nausea, able to take PO Pantoprazole Sodium (Protonix) 40 mg PO DAILY [facility] Last Admin: 01/07/20 08:03 Dose: 40 mg Documented by: Budesonide/Formoterol [ Symbicort 160-4.5 Mcg] 1 each INH Q12HR [facility] Last Admin: 01/07/20 09:07 Dose: Not Given Documented by: Sertraline HCl (Zoloft) 50 mg PO BEDTIME [facility] Last Admin: 01/06/20 20:23 Dose: 50 mg Documented by: Sodium Chloride (Saline Flush) 10 ml FLUSH ASDIRECTED PRN PRN Reason: Keep Vein Open Last Admin: 01/05/20 11:44 Dose: 10 ml Documented by: Sodium Chloride (Saline Flush) 2.5 ml FLUSH ASDIRECTED PRN PRN Reason: Keep Vein Open Last Admin: 01/07/20 09:50 Dose: 2.5 ml Documented by: Vancomycin HCl (Pharmacy To Dose - Vancomycin) 1 dose .XX ASDIRECTED [facility] - Free Text/Narrative Note: I have seen and evaluated the patient. I have discussed findings and treatment plan with resident. I agree with the assessment and plan in the following note.
== END 2020-01-07 15:17 | disposition home health service (06) | DRG 194 ==
LOC: MW.ED 10:19 → MW.MS 15:33 → OBSVTOIN 18:15 → MW.MS 01-06 03:16
PROVIDERS: ADMIT Student in an Organized Health Care Education/Training Program; ATTEND Student in an Organized Health Care Education/Training Program
DX: J18.9 Pneumonia, unspecified organism (principal); N30.00 Acute cystitis without hematuria; E87.1 Hypo-osmolality and hyponatremia; J43.9 Emphysema, unspecified; I95.1 Orthostatic hypotension; I10 Essential (primary) hypertension; F32.9 Major depressive disorder, single episode, unspecified; F41.9 Anxiety disorder, unspecified; E87.8 Other disorders of electrolyte and fluid balance, not elsewhere classified; Z96.649 Presence of unspecified artificial hip joint; R79.89 Other specified abnormal findings of blood chemistry; Z20.828 Contact with and (suspected) exposure to other viral communicable diseases; Z79.51 Long term (current) use of inhaled steroids; Z79.52 Long term (current) use of systemic steroids; Z79.899 Other long term (current) drug therapy; Z79.2 Long term (current) use of antibiotics; Z82.49 Family history of ischemic heart disease and other diseases of the circulatory system; Z83.3 Family history of diabetes mellitus; Z83.6 Family history of other diseases of the respiratory system
CPT/HCPCS: 36415; 71046; 71046-26; 71275; 71275-26; 80053; 81001; 82803; 83735; 83880; 84100; 84484; 85025; 85379; 87070; 87077; 87086; 87088; 87186; 87205; 93005; 93010; 94640; 96365; 96367; 96375; 99221; 99232; 99238; 99285; 99285-25; A9270-GY; J0696; J1650; J1956; J2543; J2930; J3370; J7030; J7050; J7620-GY; Q9967; U0002

== ENCOUNTER 2020-05-03 09:13 | Observation (INO) | payer MEDICARE, BC ==
--- NOTE | 2020-05-03 09:32 | EDM.PDOC ---
ED HPI GENERAL MEDICAL PROBLEM - General Stated Complaint: GENERALIZED WEAKNESS Time Seen by Provider: 05/03/20 09:21 Source of Information: Reports: EMS, Family - History of Present Illness INITIAL COMMENTS - FREE TEXT/NARRATIVE: History of present illness: [] The patient was in extremis when EMS arrived [facility] were called because of altered level of consciousness. She was breathing and adequately and had a slow pulse. They put her on an external pacemaker and assisted with [id number]. She was told that the daughter has power of web page developer and knows that the patient does not want to be any kind of full resuscitation and only wants comfort care. They had no paperwork so they were obligated to bring her to the closest facility and try to sustain her life until they got here. I immediately spoke with Mona Marcelo daughter has the power of web page developer and her physician. Mona said Ms. David does not want to be resuscitated. She wants comfort care only. She does not want an evaluation to find out what the cause of her demise is but if she is peacefully ready to go she wants to let her go. She agreed to let us withdrawal any kind of life support including intravenous fluids and nutrition evaluation for cause of the change in condition. She also agreed that if the patient continues to have a pulse and breathe that we would consult hospice and try to make an appropriate disposition so that no aggressive intervention was undertaken. The patient did not appear to be suffering. She was conscious and cooperative yesterday. According to daughter. Review of systems: As per history of present illness and below otherwise all systems reviewed and negative. Past medical history: As per history of present illness and as reviewed below otherwise noncontributory. Surgical history: As per history of present illness and as reviewed below otherwise noncontributory. Social history: No reported history of drug or alcohol abuse. Family history: As per history of present illness and as reviewed below otherwise noncontributory. Physical exam: Constitutional -thin but well-nourished and in no acute distress. He does not make eye contact or squeeze my hand. Her eyes are open. HEENT - normocephalic, no evidence of trauma - external nose and mouth normal - no mass in neck and no JVD - mucosae moist EYES - full EOM, PERRL, no icterus - no evidence of inflammation, injection, or drainage Respiratory - no respiratory distress, equal bilateral expansion, next excursion. Cardiovascular - Regular Rhythm with S1 and S2 appreciated and no murmur, gallop or rub. He is however bradycardic. GI - abdomen soft without distension or organomegaly - normal bowel sounds - no guard or rebound Musculoskeletal no gross deformity of long bones or joints - no tenderness, swelling or edema Neurologic -are open but otherwise she is unresponsive. Psychiatric - appropriate mood and affect with normal thought content Hematologic - No petechiae or purpura - mucosa appropriate color and sclera not pale - normal nail bed color and refill Integument - no rash or evidence of trauma - normal turgor Diagnostics: [] Therapeutics: [] Impression: [] Plan: [] Definitive disposition and diagnosis as appropriate pending reevaluation and review of above. - Related Data Allergies Allergy/AdvReac Type Severity Reaction Status Date / Time No Known Allergies Allergy Unverified 05/03/20 09:29 Home Meds: Home Meds Metoprolol Tartrate 25 mg PO BID 02/18/15 [History] Sertraline [Zoloft] 50 mg PO BEDTIME 02/18/15 [History] Albuterol [Ventolin HFA] 1 puff INH BID 12/18/19 [History] Budesonide/Formoterol [Symbicort 160-4.5 MCG] 1 inh INH Q12HR 12/18/19 [History] Codeine Phosphate/Guaifenesin [Guaifen-Codeine 200-20 mg/10Ml] 5 ml PO BEDTIME PRN 12/18/19 [History] Ipratropium/Albuterol Sulfate [Iprat-Albut 0.5-3(2.5) MG/3 ML] 3 ml IH Q6HR PRN 12/18/19 [History] amLODIPine [Norvasc] 5 mg PO DAILY 12/18/19 [History] Albuterol/Ipratropium [DuoNeb 3.0-0.5 MG/3 ML] 3 ml NEB Q6HRRT neb 12/22/19 [Rx] Benzonatate [Tessalon Perle] 100 mg PO Q6H #40 capsule 12/22/19 [Rx] Docusate Sodium [Colace] 100 mg PO DAILY #30 cap 10/28/20 [Rx] Albuterol/Ipratropium [DuoNeb 3.0-0.5 MG/3 ML] 3 ml NEB Q4HRRT PRN neb 01/07/20 [Rx] levoFLOXacin [Levaquin] 750 mg PO Q48H 5 Days #5 tab 01/07/20 [Rx] Past Medical History Cardiovascular History: Reports: Hypertension Respiratory History: Reports: COPD Other Respiratory History: emphysema CARE MANAGER History: Reports: Psychiatric History: Reports: Anxiety, Depression - Infectious Disease History Infectious Disease History: Reports: Chicken Pox, Shingles - Past Surgical History Musculoskeletal Surgical History: Reports: Hip Replacement, Other (See Below) Social & Family History - Family History Family Medical History: No Pertinent Family History Cardiac: Reports: Hypertension Respiratory: Reports: COPD OBGYN: Reports: Endocrine/Metabolic: Reports: Diabetes, type II - Caffeine Use Caffeine Use: Reports: Coffee ED ROS GENERAL - Review of Systems Review Of Systems: Comprehensive ROS is negative, except as noted in HPI. ED EXAM, GENERAL - Physical Exam Exam: See Below Free Text/Narrative:: History and physical as in the HPI Course - Vital Signs Text/Narrative:: patient's blood pressure 0.49. She still breathing. She is unconscious. Family is comfortable with end-of-life care. I will talk to the hospitalist and have her placed in observation status pending hospice consult. Hospitalist saw the patient and discussed the case with the family. She was placed in observation status for expectant care. Last Recorded V/S: Last Vital Signs Temp 36.1 C 05/03/20 09:29 Pulse 40 L 05/03/20 11:55 Resp 9 L 05/03/20 11:55 BP 61/30 L 05/03/20 11:55 Pulse Ox 86 L 05/03/20 11:55 Departure - Departure Time of Disposition: 12:05 Disposition: Refer to Observation Condition: Critical Clinical Impression: Coma, Bradycardia, Hypotension - Discharge Information Sepsis Event Note (ED) - Focused Exam Vital Signs: Vital Signs Temp Pulse Resp BP Pulse Ox 05/03/20 10:05 37 L 9 L 75/34 L 90 L 05/03/20 09:29 36.1 C 50 L 10 L 46/26 L 75 L 05/03/20 09:25 38 L 10 L 69/30 L 94 L
--- NOTE | 2020-05-03 11:51 | PCM.HP.2 ---
H&P History of Present Illness - General Date of Service: 05/03/20 Admit Problem/Dx: Admission Diagnosis/Problem Admission Diagnosis/Problem Coma - History of Present Illness Initial Comments - Free Text/Narative: 72-year-old female transferred to the medical floor from the ED for loss of consciousness, bradycardia, hypotension, end-of-life care. Patient was currently living at [facility]. Per family members patient was noted to have lost consciousness at roughly 3 AM this morning. Family member stated that she was not responsive. Family members brought patient to the ED at which time it was noted that she was hypotensive, bradycardic and was not alert. Patient's daughter has power of sports attorney and stated that she wanted to keep the patient DNR/DNI comfort care measures only. Upon discussion with family members it was agreed that no life support, medications, therapies to prolong life or necessary at this point, comfort care with palliative care and hospice care. Upon admission to the floor comfort measure only orders placed. Patient was on the medical floor for roughly 45 minutes to an hour at which time she . Per nursing patient was documented to have at 12:55 PM May 03, 2020. Daughter and son in law were present in the room when patient . Discharge Plan: Patient at 12:55pm per nursing staff. - Related Data Allergies/Adverse Reactions: Allergies Allergy/AdvReac Type Severity Reaction Status Date / Time No Known Allergies Allergy Unverified 05/03/20 09:29 Home Medications: Home Meds Metoprolol Tartrate 25 mg PO BID 02/18/15 [History] Sertraline [Zoloft] 50 mg PO BEDTIME 02/18/15 [History] Albuterol [Ventolin HFA] 1 puff INH BID 12/18/19 [History] Budesonide/Formoterol [Symbicort 160-4.5 MCG] 1 inh INH Q12HR 12/18/19 [History] Codeine Phosphate/Guaifenesin [Guaifen-Codeine 200-20 mg/10Ml] 5 ml PO BEDTIME PRN 12/18/19 [History] Ipratropium/Albuterol Sulfate [Iprat-Albut 0.5-3(2.5) MG/3 ML] 3 ml IH Q6HR PRN 12/18/19 [History] amLODIPine [Norvasc] 5 mg PO DAILY 12/18/19 [History] Albuterol/Ipratropium [DuoNeb 3.0-0.5 MG/3 ML] 3 ml NEB Q6HRRT neb 12/22/19 [Rx] Benzonatate [Tessalon Perle] 100 mg PO Q6H #40 capsule 12/22/19 [Rx] Docusate Sodium [Colace] 100 mg PO DAILY #30 cap 12/22/19 [Rx] Albuterol/Ipratropium [DuoNeb 3.0-0.5 MG/3 ML] 3 ml NEB Q4HRRT PRN neb 01/07/20 [Rx] levoFLOXacin [Levaquin] 750 mg PO Q48H 5 Days #5 tab 01/07/20 [Rx] Past Medical History Cardiovascular History: Reports: Hypertension Respiratory History: Reports: COPD Other Respiratory History: emphysema [employer] History: Reports: Psychiatric History: Reports: Anxiety, Depression - Infectious Disease History Infectious Disease History: Reports: Chicken Pox, Shingles - Past Surgical History Musculoskeletal Surgical History: Reports: Hip Replacement, Other (See Below) Social & Family History - Family History Family Medical History: No Pertinent Family History Cardiac: Reports: Hypertension Respiratory: Reports: COPD OBGYN: Reports: Endocrine/Metabolic: Reports: Diabetes, type II - Tobacco Use Tobacco Use Status *Q: Unknown Ever Used Tobacco - Caffeine Use Caffeine Use: Reports: Coffee H&P Review of Systems - Review of Systems: Review Of Systems: Unable To Obtain (Patient was unresponsive) Reason Not Obtained: Patient was not concious General: Denies: Fever Exam - Exam Exam: See Below - Vital Signs Vital Signs: Last Vital Signs Temp 96.9 F 05/03/20 09:29 Pulse 50 L 05/03/20 09:29 Resp 10 L 05/03/20 09:29 BP 46/26 L 05/03/20 09:29 Pulse Ox 75 L 05/03/20 09:29 Weight: 85 lb 15.684 oz - Exam General: No: Alert, Oriented Lungs: No: Normal Respiratory Effort Cardiovascular: Bradycardia Neuro Extensive - Mental Status: No: Alert, Oriented x3 Psychiatric: No: Alert Sepsis Event Note - Evaluation Sepsis Screening Result: No Definite Risk - Focused Exam Vital Signs: Vital Signs Temp Pulse Resp BP Pulse Ox 05/03/20 09:29 96.9 F 50 L 10 L 46/26 L 75 L - Problem List (1) Bradycardia SNOMED Code(s): 53271324 ICD Code: R00.1 - BRADYCARDIA, UNSPECIFIED Status: Acute (2) Coma SNOMED Code(s): 298027872 ICD Code: R40.20 - UNSPECIFIED COMA Status: Acute Problem List Initiated/Reviewed/Updated: Yes Orders Last 24hrs: Active Orders 24 hr Category Date Time Status Admission Status [Patient Status] [ADT] Stat ADT 05/03/20 10:25 Active CORONAVIRUS COVID-19 CARLEE [MOLEC] Stat Lab 05/03/20 11:00 Received Assessment/Plan Comment:: At the time of admission patient was not alert, hypotensive, bradycardic with decreased respirations. Patients daughter who was the POA stated that she only wanted comfort care measures, palliative care, hospice care for the patient. Patient transferred to the Medical floor and only comfort care orders placed. Patient at 12:55pm 05-03-2020 per nursing and was admitted to the medical floor for roughly one hour prior to passing away.
[2020-05-03 12:31] VITALS: BP 61/30; PULSE 40
[2020-05-03] MEDS ORDERED: LORazepam Conc Solution 2 MG/ML 30 ML Bottle PO PRN (12:32)
[2020-05-03] MEDS ORDERED: Morphine Oral Concentrate 20 MG/ML 30 ML Bottle SL PRN (12:32)
[2020-05-03] MEDS ORDERED: Atropine 1% Ophth Soln 5 ML BOTTLE SL PRN (12:32)
[2020-05-03] MEDS ORDERED: LORazepam Conc Solution 2 MG/ML 30 ML Bottle SL PRN (12:34)
== END 2020-05-03 12:55 | disposition expired ==
LOC: MW.ED 09:20 → MW.MS 10:25
PROVIDERS: ADMIT Internal Medicine; ATTEND Internal Medicine
DX: I95.9 Hypotension, unspecified (principal); R40.20 Unspecified coma; I10 Essential (primary) hypertension; J43.9 Emphysema, unspecified; R00.1 Bradycardia, unspecified; Z20.822 Contact with and (suspected) exposure to COVID-19; Z79.899 Other long term (current) drug therapy; Z98.890 Other specified postprocedural states
CPT/HCPCS: 99285; A9270; G0378; U0002